=== PATIENT | female | born 1975 | race Hispanic/Latino ===

== ENCOUNTER 2018-01-12 11:28 | Emergency (ER) | payer SELFPAY ==
--- NOTE | 2018-01-12 12:21 | EDPHYS ---
Physician Documentation [facility] Name: Massiel Sharma Age: 42 yrs Sex: Female : 1975 Arrival Date: 01/12/2018 Time: 11:30 Bed 11 Private MD: None, None ED Physician Shekhar Grey HPI: 01/12 13:40 This 42 yrs old Female presents to ER via Ambulatory with complaints of Ear snw Pain. 13:40 The patient presents with hearing loss, pain. The complaints affect the left ear. snw Onset: The symptoms/episode began/occurred gradually. Associated signs and symptoms: Pertinent positives: sinus trouble. Severity of symptoms: At their worst the symptoms were moderate. The patient has not experienced similar symptoms in the past. The patient has not recently seen a physician. 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 - Social history:: Smoking status: Patient/guardian denies using tobacco. - Ebola Screening: : No symptoms or risks identified at this time. ROS: 13:33 Constitutional: Negative for fever, chills, and weight loss, Eyes: Negative for injury, snw pain, redness, and discharge, Neck: Negative for injury, pain, and swelling, Cardiovascular: Negative for chest pain, palpitations, and edema, Respiratory: Negative for shortness of breath, cough, wheezing, and pleuritic chest pain, Abdomen/GI: Negative for abdominal pain, nausea, vomiting, diarrhea, and constipation, Back: Negative for injury and pain, : Negative for injury, bleeding, discharge, and swelling, MS/Extremity: Negative for injury and deformity, Skin: Negative for injury, rash, and discoloration, Neuro: Negative for headache, weakness, numbness, tingling, and seizure. 13:33 ENT: Positive for ear pain. Exam: 13:29 Constitutional: This is a well developed, well nourished patient who is awake, alert, snw and in no acute distress. Head/Face: Normocephalic, atraumatic. Eyes: Pupils equal round and reactive to light, extra-ocular motions intact. Lids and lashes normal. Conjunctiva and sclera are non-icteric and not injected. Cornea within normal limits. Periorbital areas with no swelling, redness, or edema. Neck: Trachea midline, no thyromegaly or masses palpated, and no cervical lymphadenopathy. Supple, full range of motion without nuchal rigidity, or vertebral point tenderness. No Meningismus. Chest/axilla: Normal chest wall appearance and motion. Nontender with no deformity. No lesions are appreciated. Cardiovascular: Regular rate and rhythm with a normal S1 and S2. No gallops, murmurs, or rubs. Normal PMI, no JVD. No pulse deficits. Respiratory: Lungs have equal breath sounds bilaterally, clear to auscultation and percussion. No rales, rhonchi or wheezes noted. No increased work of breathing, no retractions or nasal flaring. Abdomen/GI: Soft, non-tender, with normal bowel sounds. No distension or tympany. No guarding or rebound. No evidence of tenderness throughout. Back: No spinal tenderness. No costovertebral tenderness. Full range of motion. Skin: Warm, dry with normal turgor. Normal color with no rashes, no lesions, and no evidence of cellulitis. MS/ Extremity: Pulses equal, no cyanosis. Neurovascular intact. Full, normal range of motion. Neuro: Awake and alert, GCS 15, oriented to person, place, time, and situation. Cranial nerves II-XII grossly intact. Motor strength 5/5 in all extremities. Sensory grossly intact. Cerebellar exam normal. Normal gait. Psych: Awake, alert, with orientation to person, place and time. Behavior, mood, and affect are within normal limits. 13:29 ENT: External ear(s): are unremarkable, Ear canal(s): cerumen impaction, that is severe, that is hard, occluding the left ear canal, TM's: not visable, because of cerumen, Examination of the other ear shows no obvious abnormality, Nose: is normal, Mouth: is normal, Voice: is normal. Vital Signs: 11:36 BP 104 / 75; Pulse 74; Resp 16 S; Temp 98.5(TE); Pulse Ox 98% on R/A; Weight 68.95 kg aa5 (R); Height 5 ft. 0 in. (152.40 cm) (R); Pain 8/10; 11:36 Body Mass Index 29.69 (68.95 kg, 152.40 cm) aa5 MDM: 11:38 Patient medically screened. snw 13:30 Data reviewed: vital signs, nurses notes. Data interpreted: Pulse oximetry: on room snw air. Counseling: I had a detailed discussion with the patient and/or guardian regarding: the historical points, exam findings, and any diagnostic results supporting the discharge/admit diagnosis, the need for outpatient follow up. Special discussion: Based on the history and exam findings, there is no indication for further emergent testing or inpatient evaluation. I discussed with the patient/guardian the need to see the ENT specialist for further evaluation of the symptoms. Administered Medications: No medications were administered Disposition: 16:46 Co-signature as Attending Physician, Shekhar Grey MD I agree with the assessment and kdr plan of care. Disposition: 01/12/18 12:20 Discharged to Home. Impression: Impacted cerumen, left ear, Otalgia, left ear. - Condition is Stable. - Discharge Instructions: Cerumen Impaction, Ear Drops, Adult, Earache. - Prescriptions for Debrox 6.5 % Otic drops - instill 10 drop by OTIC route 2 times per day; 1 Container. Zithromax 500 mg Oral Tablet - take 1 tablet by ORAL route once daily for 5 days; 5 tablet. - Work release form, Medication Reconciliation Form, Thank You Letter, Antibiotic Education, Prescription Opioid Use form. - Follow up: Private Physician; When: 2 - 3 days; Reason: Recheck today's complaints, Continuance of care, Re-evaluation by your physician. Follow up: Emergency Department; When: As needed; Reason: Worsening of condition. Signatures: Shekhar Grey MD MD [facility] Tatiana Pineda FNP-Janessa RE[employer] FACILITY ATTENDANT-Laceyw Yoana Bowers, STEPHY RN iw Thais Ledbetter RN RN aa5 Corrections: (The following items were deleted from the chart) 12:28 12:20 01/12/2018 12:20 Discharged to Home. Impression: Impacted cerumen, left ear; iw Otalgia, left ear. Condition is Stable. Forms are Medication Reconciliation Form, Thank You Letter, Antibiotic Education, Prescription Opioid Use. Follow up: Private Physician; When: 2 - 3 days; Reason: Recheck today's complaints, Continuance of care, Re-evaluation by your physician. Follow up: Emergency Department; When: As needed; Reason: Worsening of condition. snw
--- NOTE | 2018-01-12 12:21 | ER ---
Nurse's Notes [facility] Name: Massiel Sharma Age: 42 yrs Sex: Female : 1975 Arrival Date: 01/12/2018 Time: 11:30 Bed 11 Private MD: None, None Diagnosis: Impacted cerumen, left ear;Otalgia, left ear Presentation: 01/12 11:35 Presenting complaint: Patient states: left ear pain since yesterday. Transition of aa5 care: patient was not received from another setting of care. Onset of symptoms was December 2017. Risk Assessment: Do you want to hurt yourself or someone else? Patient reports no desire to harm self or others. Initial Sepsis Screen: Does the patient meet any 2 criteria? No. Patient's initial sepsis screen is negative. Does the patient have a suspected source of infection? No. Patient's initial sepsis screen is negative. Care prior to arrival: None. 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 - Social history:: Smoking status: Patient/guardian denies using tobacco. - Ebola Screening: : No symptoms or risks identified at this time. Screenin:52 Abuse screen: Denies threats or abuse. Nutritional screening: No deficits noted. aa5 Tuberculosis screening: No symptoms or risk factors identified. Fall Risk None identified. Assessment: 11:51 General: Appears comfortable, Behavior is calm, cooperative. Pain: Complains of pain in aa5 left ear. Neuro: Level of Consciousness is awake, alert, obeys commands, Oriented to person, place, time, situation. Cardiovascular: Heart tones S1 S2 present Rhythm is regular. Respiratory: Airway is patent Respiratory effort is even, unlabored, Respiratory pattern is regular, symmetrical. GI: No signs and/or symptoms were reported involving the gastrointestinal system. : No signs and/or symptoms were reported regarding the genitourinary system. EENT: Reports pain in left ear. Derm: Skin is pink, warm \T\ dry. Musculoskeletal: Range of motion: intact in all extremities. 12:26 Reassessment: Patient is alert, oriented x 3, equal unlabored respirations, skin aa5 warm/dry/pink. Vital Signs: 11:36 BP 104 / 75; Pulse 74; Resp 16 S; Temp 98.5(TE); Pulse Ox 98% on R/A; Weight 68.95 kg aa5 (R); Height 5 ft. 0 in. (152.40 cm) (R); Pain 8/10; 11:36 Body Mass Index 29.69 (68.95 kg, 152.40 cm) aa5 ED Course: 11:30 Patient arrived in ED. mr 11:31 None, None is Private Physician. mr 11:36 Triage completed. aa5 11:36 Arm band placed on. aa5 11:36 Patient has correct armband on for positive identification. aa5 11:37 Thais Ledbetter, RN is Primary Nurse. aa5 11:38 Tatiana Pineda FNP-C is PHCP. snw 11:38 Shekhar Grey MD is Attending Physician. snw 11:52 No provider procedures requiring assistance completed. aa5 12:26 Patient did not have IV access during this emergency room visit. iw Administered Medications: No medications were administered Outcome: 12:20 Discharge ordered by . snw 12:26 Discharged to home ambulatory. iw 12:26 Condition: stable 12:26 Discharge instructions given to patient, Instructed on discharge instructions, follow up and referral plans. medication usage, Demonstrated understanding of instructions, follow-up care, medications, Prescriptions given X 2. 12:28 Patient left the ED. iw Signatures: Tatiana Pineda FNP-C [employer] ENDSHAKE ADJUSTER-Laceyw Karen Dan Irene, RN RN iw Thais Ledbetter, STEPHY RN aa5
== END 2018-01-12 12:28 | disposition home or self-care (01) ==
LOC: ER 11:28
DX: H61.22 Impacted cerumen, left ear (principal); H92.02 Otalgia, left ear
CPT/HCPCS: 99282

== ENCOUNTER 2019-09-07 07:59 | Emergency (ER) | payer OTHER ==
--- OUTSIDE RECORDS SUMMARY | 2019-09-07 08:13 | XMS REPORT ---
:1975 [facility] [address] [place] [address] Care Team Providers Name Role Phone Unavailable Unavailable Unavailable Problems This patient has no known problems. Allergies, Adverse Reactions, Alerts This patient has no known allergies or adverse reactions. Medications This patient has no known medications. Results Test Description Test Time Test Comments Text Results Atomic Results Result Comments SCR MAMM BILATERAL MANISH 2019-07-24 11:41:14 - SCR MAMM BILATERAL MANISH CAD CAD DIGITAL DIGITALBILATERAL DIGITAL SCREENING MAMMOGRAM 3D/2D WITH CAD: 07/21/2019CLINICAL: Asymptomatic. Digital breast tomosynthesis was performed in addition to routine CC and MLO views. Current mammographic images were evaluated by either a [employer] M-Vu or a [employer] ImageChecker CAD (computer aided detection system). No prior exams were available for comparison. The tissue of both breasts is heterogeneously dense. This may lower the sensitivity of mammography. No suspicious mass, architectural distortion, malignant type calcification, or lymph node abnormality detected. IMPRESSION: NEGATIVEThere is no mammographic evidence of malignancy. Resume annual screening mammography in one year. Avila Sharma M.D. et/penrad:07/24/2019 11:41:14 Attending Technologist: Stefani Nicholson MM, [employer] [place] [employer] MammographyImaging Technologist: Layne Alcantara MM, [facility] [place] Mobile Mammographyletter sent: BIRADS 1-2 Normal Mammogram BI-RADS: 1 Negative
[2019-09-07] MEDS ORDERED: LIDOCAINE VISCOUS 2% SOLN 15 ML UDC ONE (08:29)
[2019-09-07] MEDS ORDERED: ONDANSETRON 4 MG/2 ML VIAL ONE (08:29)
[2019-09-07] MEDS ORDERED: MAGNE/ALUM HYDROXD 30 ML UCUP ONE (08:29)
[2019-09-07] MEDS ORDERED: ASPIRIN 81 MG CHEWABLE TABLET ONE (08:29)
[2019-09-07 08:40] LABS: Basophils % 0.8 % (0-1.3); Hematocrit 40.7 % (36.0-45.0); Lymphocytes % 27.4 % (15.3-44.8); MPV 8.8 fL (7.6-11.3); RBC Red Blood Cell Count 4.43 M/uL (3.86-4.86)
--- NOTE | 2019-09-07 08:41 | RAD REPORT ---
EXAM DESCRIPTION: RAD - Chest Single View - 09/07/2019 8:24 am CLINICAL HISTORY: CHEST PAIN COMPARISON: No comparisons TECHNIQUE: AP portable chest image was obtained 09/07/2019 8:24 am . FINDINGS: Lungs are clear. Heart and vasculature are normal. No measurable pleural effusion and no p neumothorax. No acute bony abnormality seen. No acute aortic findings suspected. IMPRESSION: No acute cardiopulmonary process.
[2019-09-07] MEDS ORDERED: MORPHINE 4 MG/ML SYR ONE (08:44)
[2019-09-07 08:54] LABS: Protime INR 1.04
[2019-09-07 09:03] LABS: ALT/SGPT 40 U/L (12-78); AST/SGOT 18 U/L (15-37); Albumin 3.4 g/dL (3.4-5.0); Alkaline Phosphatase 62 U/L (45-117); BUN Blood Urea Nitrogen 16 mg/dL (7-18); Bicarbonate 28 mmol/L (21-32); Bilirubin Direct 0.2 mg/dL (0-0.2); Bilirubin Total 0.8 mg/dL (0.2-1.0); Glucose Level 107 mg/dL (74-106); Lipase 100 U/L (73-393); Magnesium 2.3 mg/dL (1.8-2.4); NT PRO-BNP 23 pg/mL (<125); Potassium 4.1 mmol/L (3.5-5.1); Protein, Total 7.7 g/dL (6.4-8.2); Sodium Level 140 mmol/L (136-145); Troponin (Emerg Dept Use Only) < 0.02 ng/mL (0.0-0.045)
[2019-09-07] MEDS ORDERED: IBUPROFEN 400 MG TAB ONE ×2 (10:25→10:26)
[2019-09-07 10:51] LABS: Urine Blood NEGATIVE (NEG); Urine Glucose NEGATIVE (NEG); Urine Protein 1+ (NEG); Urine pH 7.5 (5.0-7.0)
--- NOTE | 2019-09-07 11:07 | RAD REPORT ---
EXAM DESCRIPTION: CT - Chest For Pe Angio - 09/07/2019 10:59 am CLINICAL HISTORY: CHEST PAIN COMPARISON: Chest Single View dated 09/07/2019 TECHNIQUE: Dynamically enhanced 3 mm thick images of the chest were obtained during administration o f approximately 150mL Isovue 370 IV contrast. Coronal and oblique MIP reconstruction images were gene rated and reviewed. Exam utilizes a protocol to evaluate the pulmonary arterial tree. All CT scans are performed using dose optimization technique as appropriate and may include automated exposure control or mA/KV adjustment according to patient size. FINDINGS: No pulmonary emboli are identified. The aorta as imaged shows no acute or suspicious finding. No pericardial thickening or effusion. No infiltrate or mass in the lung parenchyma. No pleural effusion or pleural thickening. No mediastinal or hilar suspicious masses. No chest wall masses or abnormal axillary lymphadenopathy. IMPRESSION: No pulmonary emboli identified. No other significant or suspicious findings.
--- NOTE | 2019-09-07 11:42 | ER ---
Nurse's Notes [facility] Name: Massiel Sharma Age: 44 yrs Sex: Female : 1975 Arrival Date: 09/07/2019 Time: 08:03 Bed 14 Private MD: None, None Diagnosis: Chest pain, unspecified Presentation: 09/07 08:14 Presenting complaint: Patient states: Intermittent chest pressure that became worse ss today. Transition of care: patient was not received from another setting of care. Onset of symptoms was September 05, 2018. Risk Assessment: Do you want to hurt yourself or someone else? Patient reports no desire to harm self or others. Initial Sepsis Screen: Does the patient meet any 2 criteria? No. Patient's initial sepsis screen is negative. Does the patient have a suspected source of infection? No. Patient's initial sepsis screen is negative. Care prior to arrival: None. 08:14 Method Of Arrival: Ambulatory ss 08:14 Acuity: KRISSY 3 ss Historical: - Allergies: 08:16 Ketorolac; ss 08:16 tramadol; ss - Home Meds: 08:16 Medication for HEp C [Active]; ss - PMHx: 08:16 Hepatitis; ss - PSHx: 08:16 Hernia repair; ; ss - Immunization history:: Adult Immunizations up to date. - Social history:: Smoking status: Patient denies any tobacco usage or history of. - Ebola Screening: : Patient denies exposure to infectious person Patient denies travel to an Ebola-affected area in the 21 days before illness onset. Screenin:16 Abuse screen: Denies threats or abuse. Denies injuries from another. Nutritional ss screening: No deficits noted. Tuberculosis screening: Never had TB. Fall Risk None identified. Assessment: 08:16 General: Appears in no apparent distress. comfortable, Behavior is calm, cooperative, ss Denies fever, feeling ill, fatigue, chills. Pain: Complains of pain in chest Pain does not radiate. Pain currently is 9 out of 10 on a pain scale. at worst was 9 out of 10 on a pain scale. Quality of pain is described as pressure, Pain began 2-3 days ago. Is intermittent. Neuro: Level of Consciousness is awake, alert, obeys commands, Oriented to person, place, time, situation. Cardiovascular: Pulses are palpable in right radial artery and left radial artery. Cardiovascular: Denies fatigue, lightheadedness, palpitations, shortness of breath, vomiting, Capillary refill < 3 seconds is brisk in bilateral fingers. Respiratory: Airway is patent Trachea midline Respiratory effort is even, unlabored, Respiratory pattern is regular, symmetrical. GI: Patient currently denies abdominal pain, diarrhea, nausea, vomiting. : No signs and/or symptoms were reported regarding the genitourinary system. Denies burning with urination, urinary frequency. EENT: Nares are clear Oral mucosa is moist. Throat is clear. Derm: Skin is intact, is healthy with good turgor, Skin is dry, Skin is pink, warm \T\ dry. normal. 08:19 Reassessment: XRAY at bedside. 09:05 Reassessment: Patient appears in no apparent distress at this time. Pt is resting in exam bed, awaiting disposition. Pt reports pain has minimally decreased to 8/10 after medication administration. Respirations remain even and unlabored. Call light within reach. Lights dimmed for comfort. 09:53 Reassessment: Patient appears in no apparent distress at this time. Patient and/or ss family updated on plan of care and expected duration. Pain level reassessed. pain is currently 6/10 Patient states feeling better. 10:24 Reassessment: PT reports that pain is coming back now 8/10. MARQUISE Singh notified. Ibuprofen 800 mg ordered and administered. Vital Signs: 08:13 BP 117 / 63; Pulse 76; Resp 15; Temp 97.9(O); Pulse Ox 98% on R/A; Weight 72.57 kg; Height 5 ft. 0 in. (152.40 cm); Pain 9/10; 09:21 BP 106 / 72; Pulse 64; Resp 16; Temp 97.6(O); Pulse Ox 97% on R/A; mh5 09:54 BP 105 / 70; Pulse 65; Resp 14; Pulse Ox 98% ; Pain 6/10; ss 08:13 Body Mass Index 31.25 (72.57 kg, 152.40 cm) ED Course: 08:03 Patient arrived in ED. mr 08:04 None, None is Private Physician. mr 08:05 Francisco Richardson PA is PHCP. [facility] 08:05 Javier Zheng MD is Attending Physician. jmm 08:13 Magi Myers, STEPHY is Primary Nurse. ss 08:13 Arm band placed on right wrist. ss 08:15 Triage completed. ss 08:16 Patient has correct armband on for positive identification. Bed in low position. Call ss light in reach. development administrator on. Pulse ox on. NIBP on. 08:16 Patient maintains SpO2 saturation greater than 95% on room air. ss 08:24 XRAY Chest (1 view) In Process Unspecified. EDMS 08:30 EKG done, by cartography technician. reviewed by Francisco CAMARILLO. at1 08:37 Initial lab(s) drawn, by ar, sent to lab. Inserted saline lock: 20 gauge in right mh5 antecubital area, using aseptic technique. Blood collected. 10:58 CT Chest For PE Angio In Process Unspecified. EDMS 11:41 Ruperto Matthew MD is Referral Physician. jmm 11:59 No provider procedures requiring assistance completed. IV discontinued, intact, ss bleeding controlled, No redness/swelling at site. Pressure dressing applied. Administered Medications: 08:34 Drug: Aspirin Chewable Tablet 324 mg Route: PO; ss 09:01 Follow up: Response: No adverse reaction ss 08:34 Drug: GI Cocktail without - (Maalox Suspension 30 ml, Lidocaine Liquid 2 % 15 ss ml) Route: PO; 09:02 Follow up: Response: No adverse reaction; No adverse reaction, RASS 0. pain is ss minimally decreased to 8/10 from 9/10. initial RASS 0 08:34 Drug: Zofran 4 mg Route: IVP; Site: right antecubital; ss 09:03 Follow up: Response: No adverse reaction ss 08:44 Drug: morphine 4 mg Route: IVP; Site: right antecubital; ss 09:03 Follow up: Response: No adverse reaction; No adverse reaction, pain is minimally ss decreased to 8/10 RASS 0 10:25 Drug: Ibuprofen 800 mg Route: PO; ss 12:00 Follow up: Response: No adverse reaction; Pain is decreased ss Outcome: 11:41 Discharge ordered by . jmm 11:59 Discharged to home ambulatory. ss 11:59 Condition: good 11:59 Discharge instructions given to patient, family, Instructed on discharge instructions, follow up and referral plans. medication usage, Demonstrated understanding of instructions, follow-up care, medications, Prescriptions given X 1. 12:00 Patient left the ED. ss Signatures: Dispatcher [employer] EDMS Francisco Richardson PA PA jmm Rivera, Mary mr Smirch, Shelby, STEPHY RN ss Emy Finch, guide EKG [facility]1 Karen Morton [facility]
--- NOTE | 2019-09-07 11:42 | EDPHYS ---
Physician Documentation [facility] Name: Massiel hSarma Age: 44 yrs Sex: Female : 1975 Arrival Date: 09/07/2019 Time: 08:03 Bed 14 Private MD: None, None ED Physician Javier Zheng HPI: 09/07 08:55 This 44 yrs old Female presents to ER via Ambulatory with complaints of Chest jmm Pain. 08:55 The patient or guardian reports chest pain that is located primarily in the substernal [facility] area. Onset: gradually, 2 day(s) ago. The pain does not radiate. Associated signs and symptoms: Pertinent negatives: abdominal pain, cough, lower extremity swelling, lightheadedness, nausea, shortness of breath. The chest pain is described as a pressure. Duration: The patient or guardian reports multiple episodes, that are intermittent. Modifying factors: The symptoms are alleviated by nothing. the symptoms are aggravated by nothing. This is a 44 year old female with a history of hepatitis c that presents to the ED with complaints of substernal chest pain beginning this past Wednesday which is intermittent. Denies abdominal pain, denies vomiting. Pain does not radiate to the back, arm, or jaw. . Historical: - Allergies: 08:16 Ketorolac; ss 08:16 tramadol; ss - Home Meds: 08:16 Medication for HEp C [Active]; ss - PMHx: 08:16 Hepatitis; ss - PSHx: 08:16 Hernia repair; ; ss - Immunization history:: Adult Immunizations up to date. - Social history:: Smoking status: Patient denies any tobacco usage or history of. - Ebola Screening: : Patient denies exposure to infectious person Patient denies travel to an Ebola-affected area in the 21 days before illness onset. ROS: 08:55 Constitutional: Negative for fever, chills, and weight loss. jmm 08:55 Respiratory: Negative for shortness of breath, cough, wheezing, and pleuritic chest pain, Abdomen/GI: Negative for abdominal pain, nausea, vomiting, diarrhea, and constipation. 08:55 Cardiovascular: Positive for chest pain. 08:55 All other systems are negative. Exam: 08:55 Constitutional: This is a well developed, well nourished patient who is awake, alert, jmm and in no acute distress. Head/Face: atraumatic. Eyes: EOMI, no conjunctival erythema appreciated ENT: Moist Mucus Membranes Neck: Trachea midline, Supple Chest/axilla: Normal chest wall appearance and motion. 08:55 Abdomen/GI: Non distended, soft Back: Normal ROM Skin: General appearance color normal MS/ Extremity: Moves all extremities, no obvious deformities appreciated, no edema noted to the lower extremities Neuro: Awake and alert, normal gait Psych: Behavior is normal, Mood is normal, Patient is cooperative and pleasant 08:55 Cardiovascular: Rate: normal, Rhythm: regular, Pulses: no pulse deficits are appreciated. 08:55 Respiratory: the patient does not display signs of respiratory distress, Respirations: normal, Breath sounds: are clear throughout. Vital Signs: 08:13 BP 117 / 63; Pulse 76; Resp 15; Temp 97.9(O); Pulse Ox 98% on R/A; Weight 72.57 kg; ss Height 5 ft. 0 in. (152.40 cm); Pain 9/10; 09:21 BP 106 / 72; Pulse 64; Resp 16; Temp 97.6(O); Pulse Ox 97% on R/A; mh5 09:54 BP 105 / 70; Pulse 65; Resp 14; Pulse Ox 98% ; Pain 6/10; ss 08:13 Body Mass Index 31.25 (72.57 kg, 152.40 cm) ss MDM: 08:10 Patient medically screened. [facility] 11:40 Data reviewed: vital signs, nurses notes. Counseling: I had a detailed discussion with [facility] the patient and/or guardian regarding: the historical points, exam findings, and any diagnostic results supporting the discharge/admit diagnosis, lab results, radiology results, the need for outpatient follow up, to return to the emergency department if symptoms worsen or persist or if there are any questions or concerns that arise at home. ED course: patient has a low risk for ACS. Chest pain relieved in the ED. CTA negative. Patient advised to follow up with PCP and otherwise given strict return precautions. Patient understood and agrees with the plan of care. . 09/07 08:08 Order name: Basic Metabolic Panel; Complete Time: 09:04 [facility] 09/07 08:08 Order name: CBC with Diff; Complete Time: 08:48 [facility] 09/07 08:08 Order name: LFT's; Complete Time: 09:04 [facility] 09/07 08:08 Order name: Magnesium; Complete Time: 09:04 [facility] 09/07 08:08 Order name: NT PRO-BNP; Complete Time: 09:04 [facility] 09/07 08:08 Order name: PT-INR; Complete Time: 09:04 [facility] 09/07 08:08 Order name: Troponin (emerg Dept Use Only); Complete Time: 09:04 [facility] 09/07 08:08 Order name: XRAY Chest (1 view); Complete Time: 08:48 [facility] 09/07 08:08 Order name: Lipase; Complete Time: 09:04 [facility] 09/07 09:06 Order name: Troponin (emerg Dept Use Only): 90 minutes after initial; Complete Time: [facility] 10:24 09/07 10:45 Order name: Urine Dipstick--Ancillary (enter results); Complete Time: 11:04 [facility] [place] 09/07 10:45 Order name: Urine --Ancillary (enter results); Complete Time: 11:04 [facility] [place] 09/07 10:46 Order name: CT Chest For PE Angio; Complete Time: 11:11 [facility] 09/07 08:08 Order name: EKG; Complete Time: 08:09 [facility] 09/07 08:08 Order name: Cardiac monitoring; Complete Time: 08:21 [facility] 09/07 08:08 Order name: EKG - Nurse/Tech; Complete Time: 08:21 09/07 08:08 Order name: IV Saline Lock; Complete Time: 08:35 [facility] 09/07 08:08 Order name: Labs collected and sent; Complete Time: 08:35 [facility] 09/07 08:08 Order name: O2 Per Protocol; Complete Time: 08:22 [facility] 09/07 08:08 Order name: O2 Sat Monitoring; Complete Time: 08:22 [facility] 09/07 09:48 Order name: EKG - Nurse/Tech; Complete Time: 10:05 [facility] 09/07 10:27 Order name: Urine Test (obtain specimen); Complete Time: 10:38 jm Administered Medications: 08:34 Drug: Aspirin Chewable Tablet 324 mg Route: PO; ss 09:01 Follow up: Response: No adverse reaction 08:34 Drug: GI Cocktail without - (Maalox Suspension 30 ml, Lidocaine Liquid 2 % 15 ss ml) Route: PO; 09:02 Follow up: Response: No adverse reaction; No adverse reaction, RASS 0. pain is ss minimally decreased to 8/10 from 9/10. initial RASS 0 08:34 Drug: Zofran 4 mg Route: IVP; Site: right antecubital; ss 09:03 Follow up: Response: No adverse reaction ss 08:44 Drug: morphine 4 mg Route: IVP; Site: right antecubital; ss 09:03 Follow up: Response: No adverse reaction; No adverse reaction, pain is minimally ss decreased to 8/10 RASS 0 10:25 Drug: Ibuprofen 800 mg Route: PO; ss 12:00 Follow up: Response: No adverse reaction; Pain is decreased ss Disposition: 12:08 Co-signature as Attending Physician, Javier Zheng MD. rn Disposition: 09/07/19 11:41 Discharged to Home. Impression: Chest pain, unspecified. - Condition is Stable. - Discharge Instructions: Nonspecific Chest Pain. - Prescriptions for Medrol (Scotty) 4 mg Oral Tablets, Dose Pack - take 1 tablet by ORAL route as directed - follow package instructions; 1 packet. - Medication Reconciliation Form, Thank You Letter, Antibiotic Education, Prescription Opioid Use, Work release form form. - Follow up: Ruperto Matthew MD; When: 2 - 3 days; Reason: Recheck today's complaints, Continuance of care, Re-evaluation by your physician. Signatures: Dispatcher [employer] EDFrancisco Russo PA PA [facility] Javier Zheng MD MD rn [facility] RN ss Corrections: (The following items were deleted from the chart) 12:00 11:41 09/07/2019 11:41 Discharged to Home. Impression: Chest pain, unspecified. ss Condition is Stable. Forms are Medication Reconciliation Form, Thank You Letter, Antibiotic Education, Prescription Opioid Use. Follow up: Ruperto Matthew; When: 2 - 3 days; Reason: Recheck today's complaints, Continuance of care, Re-evaluation by your physician. guy
[2019-09-07 12:11] VITALS: TEMP 97.6
[2019-09-07 12:12] VITALS: BP 105/70; O2SAT 98
--- NOTE | 2019-09-07 13:38 | EKG ---
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
--- NOTE | 2019-09-08 14:33 | EKG ---
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
== END 2019-09-07 12:00 | disposition home or self-care (01) ==
LOC: ER 07:59
DX: R07.9 Chest pain, unspecified (principal); Z88.6 Allergy status to analgesic agent; Z88.8 Allergy status to other drugs, medicaments and biological substances
CPT/HCPCS: 93005 ×2; 85025; 80048; 36415; 83735; 81025; 85610; 80076; 81003; 84484 ×2; 83690; 83880; 71275; 71045; 96375; 96374; 99285; Q9967; J2405

== ENCOUNTER 2022-01-27 19:18 | Emergency (ER) | payer OTHER, SELFPAY ==
--- OUTSIDE RECORDS SUMMARY | 2022-01-27 19:21 | XMS REPORT | Continuity of Care Document ---
:1975 Author Organization [facility] t Address [address] [place] [address] Care Team Providers Name Role Phone Pcp, Does Not Have A Primary Care Physician Doctor Unassigned, Name Attending Clinician Unavailable Darnell Lu Attending Clinician Candy GREENWOOD Attending Clinician Flaquito Em MD Attending Clinician Flaquito EM Attending Clinician Unavailable Payers Payer Name Policy Type Policy Number Effective Date Expiration Date S ource Problems Condition Condition Condition Status Onset Resolution Last Treating Co mments Source Name Details Category Date Date Treatment Clinician Date Nexplanon Nexplanon Disease Active 2014-[address] 0-30 ity of 00:00: [address] H/O tubal H/O tubal Disease Active 2014-08 Uni vers ligation ligation 0-30 ity of 00:00: [address] Well woman Well woman Disease Active 2014-08 U nivers exam with exam with 0-30 ity of routine routine 00:00: [place] [facility] 00 Me dical sharron exam sharron exam Branch BMI BMI Disease Active 2014-08 Univers 30.0-30.9, 30.0-30.9, 0-30 it y of adult adult 00:00: [address] Anxiety Anxiety Disease Active 2014-08 Univers disorder, disorder, 0-30 it[place] Medi sharron disorder disorder Branch type type Allergies, Adverse Reactions, Alerts Allergy Allergy Status Severity Reaction(s) Onset Inactive Treating Comm ents Source Name Type Date Date Clinician NO KNOWN Drug Active Univers ALLERGIE Class ity of S [facility] Social History Social Habit Start Date Stop Date Quantity Comments Source Exposure to Not sure [facility] SARS-CoV-2 (event) Medica l Branch Tobacco use and 2015-06-14 2015-06-14 Never used [facility] exposure 00:00:00 00:00:00 Medical Branch Alcohol intake 2015-06-14 2015-06-14 0 /d [facility] 00:00:00 00:00:00 [facility] Sex Ass[birth year] At [birth year] [facility] 00:00:00 00:00:00 [facility] Smoking Status Start Date Stop Date Source Never smoker [facility] Medications Ordered Filled Start Stop Current Ordering Indication Dosage Frequency Signature Comments Components Source Medication Medication Date Date Medication? Clinician (SIG) Name Name NaCl 0.9% 2020- No 1000mL at 999 Uni vers (NS) bolus 5-30 05-30 mL/hr, ity of infusion 19:30: 21:07 1,000 mL, Apolinar as 1,000 mL 00 :00 IV Medical Infusion, Branch ONCE, 1 dose, 01/12/21 at 1430, KAREN No known 2014-08 No Univers medications 0-30 ity of 11:14: [address] No known 2014-08 No Univers medications 0-30 ity of 11:14: [address] No known No Univers medications ity [facility] No known No [facility] Immunizations Ordered Filled Immunization Date Status Comments Sourc e Immunization Name Name TDAP 2012-11-03 Completed [facility] 00:00:00 [facility] TDAP 2012-11-03 Completed University 00:00:00 [facility] TDAP 2012-11-03 Completed University 00:00:00 [facility] TDAP 2012-11-03 Completed [facility] 00:00:00 [facility] TDAP 2012-11-03 Completed [facility] 00:00:00 [facility] Vital Signs Vital Name Observation Time Observation Value Comments Source Systolic blood 2021-01-12 20:30:00 111 mm[Hg] Univer sity of pressure [facility] Diastolic blood 2021-01-12 20:30:00 76 mm[Hg] Unive rsity of pressure [facility] Heart rate 2021-01-12 20:30:00 88 /min [facility] Respiratory rate 2021-01-12 20:30:00 15 /min [facility] Oxygen saturation in 2021-01-12 20:30:00 100 /min [facility] Arterial blood by [facility] Pulse oximetry Branch Body temperature 2021-01-12 20:05:57 37.44 [facility] Body height 2021-01-12 19:14:00 152.4 cm [facility] Body weight 2021-01-12 19:14:00 69.4 kg [facility] BMI 2021-01-12 19:14:00 29.88 kg/m2 [facility] Procedures Procedure Date / Time Performing Clinician Source Performed EXTERNAL PROVIDER 2021-12-04 05:01:00 Doctor Unassigned, No [facility] RECORDS Name [facility] POCT TEST 2021-01-12 19:51:00 Kali Gupta [facility] TROPONIN I 2021-01-12 19:48:00 Kali Gupta [facility] BASIC METABOLIC PANEL 2021-01-12 19:48:00 Kali Gupta [facility] (NA, K, CL, CO2, Medical Branch GLUCOSE, BUN, CREATININE, CA) URINE DRUG (IMMUNOASSAY) 2021-01-12 19:48:00 Kali Gupta [facility] COMPREHENSIVE DRUG Medical [facility] SCREEN CBC WITH DIFF 2021-01-12 19:48:00 Kali Gupta [facility] URINALYSIS 2021-01-12 19:48:00 Candy [facility] NOTICE OF PRIVACY 2021-01-12 19:07:43 Doctor Unassigned, No [facility] PRACTICES Name Medical [place] CONSENT/REFUSAL FOR 2021-01-12 19:07:05 [facility] Name [facility] US ABDOMEN COMPLETE 2020-04-23 21:01:25 Юлия Emlizbet Flaquito [facility] ty of [facility] ASSIGNMENT OF BENEFITS 2020-04-23 20:14:53 Doctor Froilan, Karen [facility] Name [facility] Encounters Start End Encounter Admission Attending Care Care Encounter Source Date/Time Date/Time Type Type Clinicians Facility Department ID 2021-06-15 Emergency [facility] [id number] Univers 22:10:58 ity of [facility] 2021-12-04 2021-12-04 Orders Doctor GARCIA [id number] Univers 00:00:00 00:00:00 Only UnassGABRIELLA ojeda [id number] ity of [place] [address]2.7[address].686 Apolinar as [phone] [facility] 009 Branch 2021-11-20 2021-11-20 RADHA Loera [id number] Univers 00:00:00 00:00:00 (Out) Lydia QUIROZ [id number] i ty of [place] [id number] Apolinar as [id number] [facility] 043 Branch 2021-01-12 2021-01-[address] [facility] [id number] Univers 14:17:00 16:10:00 Gonzálezafshin [place] [id number] i ty [place] [id number] [facility] 084 Branch 2020-04-23 2020-04-23 [facility] [id number] Univers 15:00:00 23:59:00 Encounter Flaquito HernandezTabor [id number] ity [place] [id number] [facility] 806 Branch 2020-04-23 2020-04-23 Outpatient [facility] [id number] Univers 00:00:00 00:00:00 ity of [facility] 2020-04-23 2020-04-23 Orders Doctor GARCIA [id number] Univers 00:00:00 00:00:00 Only UnassGABRIELLA ojeda [id number] ity of [place] [facility] 4.2.7.2.686 Apolinar as [phone] [place] [address] Branch Results Test Description Test Time Test Comments Results Result Comments Source CT/NG, NAAT, URINE 2021-10-03 21:31:48 Test Item Value Reference Range Interpretation Comme nts GONORRHEA, NAAT NEGATIVE NEGATIVE IMPORTANT NOTICE: SEE ANNOUNCEMENT (test code = [place] [address]) [email or web address] Note: Assay methodolo gy is nucleic acid amplification by transcriptio n mediated amplification (TMA) utilizing the Aptima Combo 2 Assay. CHLAMYDIA, NAAT NEGATIVE NEGATIVE IMPORTANT NOTICE: SEE ANNOUNCEMENT (test code = [place] [address]) [email or web address] Note: Assay methodolo gy is nucleic acid amplification by transcriptio n mediated amplification (TMA) utilizing the Aptima Combo 2 Assay. PAP TEST, THINPREP, [id number] 16:53:35 Test Item Value Reference Range Interpretation Comments SOURCE: (test Cervical/Endo code = 8001) cervical SLIDES: (test 1 code = 8011) LMP: (test code = 09/23/2021 8021) SPECIMEN (NOTE) Satisfacto ry for ADEQUACY: (test evaluation. code = 93737) Endocervical cells/transform ation zone component not identified. INTERPRETATION: NILM/NO (test code = EPITH. --------- 10793) ABNORMALITY;S -------- EE BELOW NEGATIVE FO R INTRAEPITHELIAL LESION OR MALIGNANCY ( NILM) --------- --------- --------- - OTHER COMMENTS: (NOTE) Shift in radha ra (test code = suggestive of b acterial 8081) vaginosis. WOOD TYPE FINISHER: Toby (test code = POLO Atwood( 8101) CP) IAC LOCATION: (test (NOTE) Specimens pr ocessed and code = 93478) interpreted at [facility], [address] [place] [address], , CLIA: [id number] CPT: (test code = (NOTE) 06000 U NLESS 8140) OTHERWISE INDIC ATED, COMPUTER AIDED AND CYTOTECHNOLOGIS T SCREENING PERFO RMED. The Pap test i s a screening test with an inherent, but l ow probability of error. Your patient sh ould be reminded to consult you immediately if she experiences any suspicious signs or symptoms, regar dless of her Pap test re sult. An alternate re port format containi ng images or consolidated prior Pap histo ry is available as ap plicable. HPV HIGH RISK WITH GENOTYPE, [id number] 16:49:43 Test Item Value Reference Range Interpretation Comments HPV HIGH RISK INTERP NEGATIVE NEGATIVE (test code = 76669) HPV 16 (test code = NEGATIVE 28065) HPV 18 (test code = NEGATIVE 36850) HPV, HR, OTHER NEGATIVE Testing GENOTYPES (test code methodo logy is real-time = 86827) PCR utilizing h ydrolysis probes with the Bea Wendy 480 0 system. The test indiv idually detects genot ypes 16 and 18, as well as the other 12 high r isk types (31,33,35,39,45 ,51,52,56 ,58,59,66,68). The expected re sult is negative. A negative result does not rule out the presence of HPV not included in the genotype set, a low level of infect ion or specimen santana pling error. U NLESS OTHERWISE INDIC ATED, ALL TESTING PERFORM ED [facility], [place]. [address] [place] [address] LABORATORY DIRE CTOR: TITO PETE M.D. CLIA NUMBER [id number] CAP ACCREDITATION N O. [id number] VAGINAL PATHOGENS DNA [id number] 13:52:37 Test Item Value Reference Range Interpretation Comments KATHY SPECIES (test code = 39390) NEGATIVE NEGATIVE G. VAGINALIS (test code = 73983) POSITIVE NEGATIVE A T. VAGINALIS (test code = 43550) NEGATIVE NEGATIVE [id number] 03:52:07 Test Item Value Reference Range Interpretation Comments RPR RESULT (test NON-REACTIVE NON-REACTIVE code = 3501) RPR TITER (test NOT INDIC. NOT INDIC. UNLES S OTHERWISE code = 3500) TITER INDICATED, ALL TESTING PERFORMED [facility], [facility]. [address] [place] [address] 4 LABORATORY DI SAMUEL: TITO PETE M.D. CLIA NUMBE R [id number] CAP ACCREDITATION N O. [id number] HIV 1/2 4TH GEN, RFLX [id number] 03:45:56 Test Item Value Reference Range Interpretation Comments HIV 1/2 4TH GEN, RFLX CONF (test NON-REACTIVE NON-REACTIVE code = 3514) HEPATITIS PANEL, [id number] 03:45:56 Test Item Value Reference Range Interpretation Comments HEPATITIS A IgM (test NON-REACTIVE NON-REACTIVE code = 89260) HEPATITIS B CORE IgM NON-REACTIVE NON-REACTIVE (test code = 4644) HEPATITIS B SURF AG NON-REACTIVE NON-REACTIVE (test code = 2739) HEPATITIS C ANTIBODY REACTIVE NON-REACTIVE A (test code = 4675) INTERPRETATION (NOTE) Hepatiti s A HEPATITIS A: (test serology shows no code = 2552) evidence of acu te hepatitis A. INTERPRETATION (NOTE) Hepatiti s B HEPATITIS B: (test serology shows no code = 61568) evidence of ac monie hepatitis B and no indication of exposure to hepatitis B vir us in the previous arsenio eight mon ths. INTERPRETATION (NOTE) Hepatiti s C HEPATITIS C: (test serology is code = 14396) consistent wit h exposure to hepatitis Cviru s. The CDC recomme nds performing a supplemental confirmatory te ston initial positiv e hepatitis C antibody tests. HCV PCR quantitativecan be used to confirm these results o n a new sample (See MMWR, 2003;52 RR-3). Troponin [id number] 20:29:39 Test Item Value Reference Range Interpretation Comments TROPONIN I (test 0.000 ng/mL See_Comment [Automated code = 1270142902) message] The system which generated this result transmitted reference range : <=0.034. The reference range was not used to interpret this result as normal/abnormal . ADRIANA (test code = Equal or Less than ADRIANA) 0.034 ng/ml---Normal ?Note: Cardiac troponin begins to rise 3-4 hours after the onset of ischemia. Repeat in 4-6 hours if the sample was drawn within 3-4 hours of the onset of the symptom and found normal. Between 0.035 and 0.120 ng/mL--- Borderline. Questionable myocardial injury or necrosis ? ?Note: Serial measurement may be necessary to confirm or exclude the diagnosis of myocardial injury or necrosis; Clinical correlation (symptoms, EKGs, imaging studies, and others) required; Repeat in 4-6 hours if clinically indicated. ? Equal or Higher than 0.121 ng/mL---Abnormal. Myocardial Injury or Necrosis Likely ? Biotin has been reported to cause a negative bias, interpret results relative to patient's use of biotin. ? Lab Interpretation Normal (test code = 80555-3) [facility] [id number] 20:29:14 Test Item Value Reference Range Interpretation Comments AMPHET (test code = Negative Negative 7898856753) MILAGROS U (test code = Negative Negative 2939777145) BENZO U (test code = Presumptive Positive Negative A 7639908364) Cocaine Metabolite (test Negative Negative code = 2223715359) METHADONE (test code = Negative Negative 4339859716) OPIATES (test code = Negative Negative 4120401293) PCP (test code = Negative Negative 3601171691) THC (test code = Presumptive Positive Negative A 8840943363) ADRIANA (test code = ADRIANA) Urine Drug Cutoff Ranges Cocaine: ? 150 ng/mLBenzodiazepines: ? ? 200 ng/mLMethadone: ? 300 ng/mLAmphetamine: ? 1,000 ng/mLOpiates: ? 300 ng/mLCannabinoids: ?50 ng/mLPhencyclidine: ? ? ? 25 ng/mLBarbiturates: ?200 ng/mL The results are to be used only for medical (i.e., treatment) purposes. Unconfirmed screening results must not be used for non-medical purposes (e.g., employment testing, legal testing). Lab Interpretation (test Abnormal code = 32129-5) [facility] Metabolic Panel (NA, K, CL, CO2, GLUCOSE, BUN, CREATININE, CA)2021-01-12 20:18:17 Test Item Value Reference Range Interpretation Comments NA (test code = 138 mmol/L 135-145 2206043423) K (test code = 3.8 mmol/L 3.5-5.0 7152642084) CL (test code = 103 mmol/L 98-108 5777008873) CO2 TOTAL (test code = 27 mmol/L 23-31 0799242220) AGAP (test code = 2-16 0507736738) BUN (test code = 9 mg/dL 7-23 5207960572) GLUCOSE (test code = 100 mg/dL 70-110 1690420872) CREATININE (test code = 0.48 mg/dL 0.50-1.04 L 9922962423) CALCIUM (test code = 9.1 mg/dL 8.6-10.6 9491987437) eGFR (test code = mL/min/1.73m2 0944744602) ADRIANA (test code = ADRIANA) Association of Glomerular Filtration Rate (GFR) and Staging of Kidney Disease* + --+ --+ ------+| GFR (mL/min/1.73 m2) ?| With Kidney Damage ?| ?Without Kidney Damage+ --------+ --------+ +| ?>90 ?| ?Stage one ?| ? Normal ?+ ---+ ---+ -------+| ?60-89 ?| ?Stage two ?| ? Decreased GFR ? + --+ --+ ------+| ?30-59 ?| ?Stage three ?| ? Stage three ? + --+ --+ ------+| ?15-29 ?| ?Stage four ? | ? Stage four ?+ ---+ ---+ -------+| ?<15 (or dialysis) ? ?| ?Stage five ? | ? Stage five ?+ ---+ ---+ -------+ *Each stage assumes the associated GFR level has been in effect for at least three months. ?Stages 1 to 5, with or without kidney disease, indicate chronic kidney disease. Notes: Determination of stages one and two (with eGFR >59mL/min/1.73 m2) requires estimation of kidney damage for at least three months as defined by structural or functional abnormalities of the kidney, manifested by either:Pathological abnormalities or Markers of kidney damage (including abnormalities in the composition of the blood or urine or abnormalities in imaging tests). Lab Interpretation Abnormal (test code = 55773-3) [facility] SpringsUrinalysis2021-05-30 20:05:48 Test Item Value Reference Range Interpretation Comments APPEARANCE (test code = Clear Clear 6920483706) COLOR (test code = Yellow Yellow 0446988316) PH (test code = 4.8-8.0 6113213847) SP GRAVITY (test code = 1.003-1.030 3195114500) GLU U QUAL (test code = Normal Normal 3778857427) BLOOD (test code = Negative Negative 7729324901) KETONES (test code = Negative Negative 8562978877) PROTEIN (test code = Negative Negative 2887-8) UROBILIN (test code = Normal Normal 7083857400) BILIRUBIN (test code = Negative Negative 6983272357) NITRITE (test code = Negative Negative 2147367445) LEUK SUSAN (test code = Negative Negative 5519209418) RBC/HPF (test code = See_Comment [Autom ated message] 1191714471) The system [employer] generated this result transmitted ref erence range: 0 - 3 HP F. The reference range was not used to int erpret this result as normal/abnormal . WBC/HPF (test code = See_Comment [Autom ated message] 2835694515) The system [employer] generated this result transmitted ref erence range: 0 - 5 HP F. The reference range was not used to int erpret this result as normal/abnormal . BACTERIA (test code = Negative Negative 7949588833) Lab Interpretation (test Normal code = 23326-2) [facility] SpringsCB with [id number] 19:58:59 Test Item Value Reference Range Interpretation Comments WBC (test code = See_Comment [Automated 6690-2) message] The sy stem which generated this result transmitted reference range : 4.30 - 11.10 10*3/?L. The reference range was not used to interpret this result as normal/abnormal . RBC (test code = See_Comment [Automated 789-8) message] The sy stem which generated this result transmitted reference range : 3.93 - 5.25 10*6/?L. The reference range was not used to interpret this result as normal/abnormal . HGB (test code = 13.4 g/dL 11.6-15.0 718-7) HCT (test code = 39.5 % 35.7-45.2 4544-3) MCV (test code = 91.4 fL 80.6-95.5 787-2) MCH (test code = 31.0 pg 25.9-32.8 785-6) MCHC (test code = 33.9 g/dL 31.6-35.1 786-4) RDW-SD (test code = 40.3 fL 39.0-49.9 09314-2) RDW-CV (test code = 12.0 % 12.0-15.5 788-0) PLT (test code = See_Comment [Automated 777-3) message] The sy stem which generated this result transmitted reference range : 166 - 358 10*3/ ?L. The reference r [place] was not used to interpret this result as normal/abnormal . MPV (test code = 10.3 fL 9.5-12.9 92880-7) NRBC/100 WBC (test See_Comment [Automat ed code = 2440695987) message] The system which generated this result transmitted reference range : 0.0 - 10.0 /100 WBCs. The refer ence range was not u sed to interpret th is result as normal/abnormal . NRBC x10^3 (test code <0.01 See_Comment [Auto mated = 1250319697) message] The s ystem which generated this result transmitted reference range : 10*3/?L. The reference range was not used to interpret this result as normal/abnormal . GRAN MAT (NEUT) % 65.8 % (test code = 770-8) IMM GRAN % (test code 0.30 % = 5802459245) LYMPH % (test code = 22.3 % 736-9) MONO % (test code = 10.2 % 5905-5) EOS % (test code = 0.9 % 713-8) BASO % (test code = 0.5 % 706-2) GRAN MAT x10^3(ANC) 6.11 10*3/uL 1.88-7.09 (test code = 7556748615) IMM GRAN x10^3 (test 0.03 10*3/uL 0.00-0.06 code = 0988864620) LYMPH x10^3 (test code 2.07 10*3/uL 1.32-3.29 = 731-0) MONO x10^3 (test code 0.95 10*3/uL 0.33-0.92 H = 742-7) EOS x10^3 (test code = 0.08 10*3/uL 0.03-0.39 711-2) BASO x10^3 (test code 0.05 10*3/uL 0.01-0.07 = 704-7) Lab Interpretation Abnormal (test code = 74916-0) [facility]PO[facility] [id number] 19:51:00 Test Item Value Reference Range Interpretation Comments POCT PREG (test code = 1605) negative On board controls acceptable with present C Line (test code = 3574) POCT PREG LOT # (test code = [id number]) POCT PREG TEST DATE (test 07/15/2022 code = 3576) Lab Interpretation (test code = Normal 06115-2) [facility] SpringsUS ABDOMEN [id number] 22:27:45 1. ?Normal size liver with normal echotexture.. No focal lesion is seen.2. ?Rest of the study is also unremarkable. Preliminary Report Dictated by Resident: Adrián Guzman MD., have reviewed this study and agree with theabove report.EXAM: US ABDOMEN COMPLETE HISTORY: 45 years-old Female with Abnormal results of liver functionstudies Chronic hepatitis C without hepatic comaReceived faxed orders forabd complete ultrasound. TECHNIQUE: Complete abdominal ultrasound was performed. Main portal veinwas evaluated with color Doppler imaging. Shipping Packer images wereobtained for the record. COMPARISON: None FINDINGS: LIVER: Length: 15.3 cm.Parenchyma: Liver is normal in size and shows normal echotexture.. No focallesion is detected.Portal vein: Hepatopetal flow present in the main portal vein. The mainportal vein measures 0.78 cm in diameter. GALLBLADDER:No cholelithiasis.Normal gallbladder wall thickness, 2 mm.Negative Mejia's sign. BILE DUCTS:No intra- or extrahepatic biliary dilatation..Common Duct diameter: 2 mm. PANCREAS: The visualized portions of the pancreas are unremarkable. SPLEEN: The spleen is normal in size. The spleen measures 9.5 cm. No focal lesionsin the spleen. KIDNEYS:RIGHT:Size 10.9 x 4.1 x 4.1 cm.Parenchyma: Normal renal cortical echogenicity and thickness. No focalsolid or cystic renal lesions are detected.Collecting System: No hydronephrosis.Other: None. LEFT:Size: 10.7 x 5.2 x 4.6 cm.Parenchyma:Normal renal cortical echogenicity and thickness.No focal solidor cystic renal lesions are detected.Collecting System: No hydronephrosis.Other: None.AORTA:Abdominal aorta is normal in caliber where visualized. IVC:IVC is normal in appearance where visualized. [facility], Radiant Results Inft User - 04/23/2020 5:28 PM CDTEXAM: US ABDOMEN COMPLETEHISTORY: 45 years-old Female with Abnormal results of liver functionstudies Chronic hepatitis C without hepatic coma Received faxed orders forabd complete ultrasound.TECHNIQUE: Complete abdominal ultrasound was performed. Main portal veinwas evaluated with color Doppler imaging. Shipping Packer images wereobtained for the record.COMPARISON: NoneFINDINGS: LIVER: Length: 15.3 cm.Parenchyma: Liver is normal in size and shows normal echotexture.. No focallesion is detected.Portal vein: Hepatopetal flow present in the main portal vein. The mainportal vein measures 0.78 cm in diameter.GALLBLADDER:No cholelithiasis.Normal gallbladder wall thickness, 2 mm.Negative Mejia's sign.BILE DUCTS:No intra- or extrahepaticbiliary dilatation..Common Duct diameter: 2 mm.PANCREAS: The visualized portions of the pancreas areunremarkable.SPLEEN: The spleen is normal in size. The spleen measures 9.5 cm. No focal lesionsin the spleen.KIDNEYS:RIGHT:Size 10.9 x 4.1 x 4.1 cm.Parenchyma: Normal renal cortical echogenicity and thickness. No focalsolid or cystic renal lesions are detected.Collecting System: No hydronephrosis.Other: None.LEFT:Size: 10.7 x 5.2 x 4.6 cm.Parenchyma:Normal renal cortical echogenicity and thickness. No focal solidor cystic renal lesions are detected.Collecting System: No hydronephrosis.Other: None.AORTA:Abdominal aorta is normal in caliber where visualized.IVC:IVC is normal in appearance where visualized. IMPRESSION1. Normal size liver with normal echotexture.. No focal lesion is seen.2. Rest of the study is also unremarkable.Preliminary Report Dictated by Resident: Adrián Sarkar MD., have reviewed this study and agree with theabove report.[facility] SpringsSCR MAMM BILATERAL MANISH CAD [id number] 11:41:14 - SCR MAMM BILATERAL MANISH CAD DIGITALBILATERAL DIGITAL SCREENING MAMMOGRAM 3D/2D WITH CAD: 07/21/2019CLINICAL: Asymptomatic. Digital breast tomosynthesis was performed in addition to routine CC and MLO views. Current mammographic images were evaluated by either a [employer] M-Vu or a [employer] ImageChecker CAD (computer aided detection system). No prior exams were available for comparison. The tissue of both breasts is heterogeneously dense. This may lower the sensitivity of mammography. No suspicious mass, architectural distortion, malignant type calcification, or lymph node abnormality detected. IMPRESSION: NEGATIVEThere is no mammographic evidence of malignancy. Resume annual screening mammography in one year. Avila Falcon/penrad:07/24/2019 11:41:14 Attending Technologist: Stefani Nicholson MM, [facility] [place] [employer] MammographyImaging Technologist: Layne Alcantara MM, [facility] [place] [facility] Mammographyletter sent: BIRADS 1-2 Normal Mammogram BI-RADS: 1 Negative"
[2022-01-27 20:48] LABS: Absolute Lymphocytes (CBC) 2.9 K/uL (0.7-4.9); Hematocrit 38.8 % (36.0-45.0); Lymphocytes % 29.4 % (15.3-44.8); MPV 8.3 fL (7.6-11.3); RBC Red Blood Cell Count 4.36 M/uL (3.86-4.86)
[2022-01-27 21:02] LABS: Urine Blood Negative (Negative); Urine Glucose Negative (Negative); Urine Protein Negative (Negative); Urine Specific Gravity >=1.030 (1.005-1.030); Urine pH 6.5 (5.0-7.0)
[2022-01-27 21:02] LABS: Potassium 4.1 mmol/L (3.5-5.1); Troponin High Sensitivity 3.3 pg/mL (<58.9)
--- NOTE | 2022-01-27 21:02 | RAD REPORT ---
EXAM DESCRIPTION: Agustin Single View01/27/2022 8:55 pm CLINICAL HISTORY: Chest pain COMPARISON: 2019 FINDINGS: The lungs appear clear of acute infiltrate. The heart is normal size IMPRESSION: No acute abnormalities displayed
[2022-01-27 21:15] LABS: Barbiturates NEGATIVE (NEGATIVE); Benzodiazepines NEGATIVE (NEGATIVE); Cocaine POSITIVE (NEGATIVE); METHAMPHETAM POSITIVE (NEGATIVE); Methadone NEGATIVE (NEGATIVE); Opiates NEGATIVE (NEGATIVE); Phencyclidine NEGATIVE (NEGATIVE); THC Cannibis NEGATIVE (NEGATIVE)
[2022-01-27] MEDS ORDERED: MORPHINE 2 MG/ML SYR ONE ×2 (21:27→23:44)
[2022-01-27 21:35] LABS: Urine Bacteria NONE SEEN /HPF (<20); Urine RBC <5 /HPF (NONE SEEN)
--- NOTE | 2022-01-28 00:45 | ER ---
Nurse's Notes [facility] Name: Massiel Sharma Age: 46 yrs Sex: Female : 1975 Arrival Date: 01/27/2022 Time: 19:24 Bed 14 Private MD: Diagnosis: Chest pain, unspecified Presentation: 01/27 19:41 Chief complaint: Patient states: Chest pain on and off for 2 days. Coronavirus screen: ld1 At this time, the client does not indicate any symptoms associated with coronavirus-19. Ebola Screen: No symptoms or risks identified at this time. Initial Sepsis Screen: Does the patient meet any 2 criteria? No. Patient's initial sepsis screen is negative. Does the patient have a suspected source of infection? No. Patient's initial sepsis screen is negative. Risk Assessment: Do you want to hurt yourself or someone else? Patient reports no desire to harm self or others. Onset of symptoms was January 27, 2022. 19:41 Method Of Arrival: Ambulatory ld1 19:41 Acuity: KRISSY 3 ld1 Triage Assessment: 19:42 General: Appears in no apparent distress. comfortable, Behavior is calm, cooperative, ld1 appropriate for age. Pain: Complains of pain in chest Pain does not radiate. Pain currently is 10 out of 10 on a pain scale. Quality of pain is described as sharp. EENT: No signs and/or symptoms were reported regarding the EENT system. Neuro: Level of Consciousness is awake, alert, obeys commands, Oriented to person, place, time, situation. Cardiovascular: Capillary refill < 3 seconds Patient's skin is warm and dry. Respiratory: Airway is patent Respiratory effort is even, unlabored. GI: Abdomen is flat, non-distended. : No signs and/or symptoms were reported regarding the genitourinary system. Derm: No signs and/or symptoms reported regarding the dermatologic system. Musculoskeletal: No signs and/or symptoms reported regarding the musculoskeletal system. 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 - Social history:: Smoking status: Patient denies any tobacco usage or history of. Patient uses alcohol. Screenin:46 Abuse screen: Denies threats or abuse. Denies injuries from another. Nutritional lg3 screening: No deficits noted. Tuberculosis screening: No symptoms or risk factors identified. Fall Risk None identified. Assessment: 20:46 General: Appears in no apparent distress. comfortable, Behavior is calm, cooperative. lg3 Pain: Complains of pain in chest Pain radiates to right arm Quality of pain is described as crampy, pressure, radiating, Pain began 2-3 days ago. Neuro: No deficits noted. Todd Agitation-Sedation Scale (RASS): 0 - Alert and Calm Level of Consciousness is awake, alert, obeys commands, Oriented to person, place, time, situation. Cardiovascular: No deficits noted. Denies nausea, shortness of breath, Capillary refill < 3 seconds Clubbing of nail beds is absent JVD is absent Patient's skin is warm and dry. Respiratory: No deficits noted. Airway is patent Trachea midline Respiratory effort is even, unlabored, Respiratory pattern is regular, symmetrical. GI: No deficits noted. No signs and/or symptoms were reported involving the gastrointestinal system. Abdomen is round non-distended. : No deficits noted. No signs and/or symptoms were reported regarding the genitourinary system. EENT: No deficits noted. No signs and/or symptoms were reported regarding the EENT system. Derm: No deficits noted. No signs and/or symptoms reported regarding the dermatologic system. Skin is intact, is healthy with good turgor, Skin is dry, Skin temperature is warm. Musculoskeletal: No deficits noted. No signs and/or symptoms reported regarding the musculoskeletal system. Circulation, motion, and sensation intact. Range of motion: intact in all extremities. 23:38 Reassessment: Patient appears in no apparent distress at this time. No changes from lg3 previously documented assessment. Patient and/or family updated on plan of care and expected duration. Pain level reassessed. Patient is alert, oriented x 3, equal unlabored respirations, skin warm/dry/pink. 01/28 01:06 Reassessment: Patient appears in no apparent distress at this time. No changes from lg3 previously documented assessment. Patient and/or family updated on plan of care and expected duration. Pain level reassessed. Patient is alert, oriented x 3, equal unlabored respirations, skin warm/dry/pink. Patient states symptoms have improved. Vital Signs: 01/27 19:41 BP 131 / 87; Pulse 86; Resp 18; Temp 98.7(TE); Pulse Ox 99% on R/A; Weight 68.04 kg; ld1 Height 5 ft. 0 in. (152.40 cm); Pain 10/10; 22:02 BP 118 / 75; Pulse 82; Resp 16 S; Pulse Ox 100% on R/A; lg3 01/28 01:06 BP 122 / 75; Pulse 79; Resp 17; Pulse Ox 99% on R/A; lg3 01/27 19:41 Body Mass Index 29.29 (68.04 kg, 152.40 cm) ld1 ED Course: 01/27 19:24 Patient arrived in ED. ja2 19:42 Triage completed. ld1 19:42 Arm band placed on right wrist. ld1 20:08 Garrison Isaacs PA is PHCP. cp 20:08 Garrison Segovia MD is Attending Physician. cp 20:20 Heydi Olmos, STEPHY is Primary Nurse. lg3 20:46 Patient has correct armband on for positive identification. Bed in low position. Call lg3 light in reach. Side rails up X 1. Client placed on continuous cardiac and pulse oximetry monitoring. NIBP monitoring applied. patient monitor on. Door closed. Noise minimized. Warm blanket given. Family accompanied patient. 20:46 Inserted saline lock: 20 gauge in left antecubital area, using aseptic technique. Blood lg3 collected. 20:46 Patient maintains SpO2 saturation greater than 95% on room air. lg3 20:47 Basic Metabolic Panel Sent. lg3 20:47 CBC with Diff Sent. lg3 20:47 Troponin HS Sent. lg3 20:57 XRAY Chest (1 view) In Process Unspecified. EDMS 21:02 Urine Microscopic Only Sent. lg3 21:02 UDS Sent. lg3 21:19 Urine Microscopic Only Sent. lg3 21:27 LAB Add On Sent. lg3 21:27 D-Dimer Sent. lg3 23:37 CT Chest For PE Angio In Process Unspecified. EDMS 01/28 01:18 No provider procedures requiring assistance completed. IV discontinued, intact, lg3 bleeding controlled, No redness/swelling at site. Pressure dressing applied. Administered Medications: 01/27 21:27 Drug: morphine 2 mg Route: IV; Rate: calculated rate; Site: left antecubital; lg3 23:41 Drug: morphine 2 mg Route: IV; Rate: calculated rate; Site: left antecubital; kd3 01/28 01:07 Follow up: Response: No adverse reaction; IV Status: Completed infusion; IV Intake: 2ml lg3 Medication: 01/27 20:46 VIS not applicable for this client. lg3 Intake: 01/28 01:07 IV: 2ml; Total: 2ml. lg3 Outcome: 00:45 Discharge ordered by MD. cp 01:18 Discharged to home ambulatory, with family. lg3 01:18 Condition: stable 01:18 Discharge instructions given to patient, Instructed on discharge instructions, medication usage, Demonstrated understanding of instructions, medications, Prescriptions given X 1. 01:20 Patient left the ED. lg3 Signatures: Dispatcher [employer] EDMS Garrison Isaacs PA PA cp Gibson, Lacie RN RN lg3 Analisa Bose RN RN ld1 Mounika Stein Kyli RN RN kd3
--- NOTE | 2022-01-28 00:45 | EDPHYS ---
Physician Documentation [facility] Name: Massiel Sharma Age: 46 yrs Sex: Female : 1975 Arrival Date: 01/27/2022 Time: 19:24 Bed 14 Private MD: ADALGISA Physician Garrison Segovia HPI: 01/27 20:15 This 46 yrs old Female presents to ER via Ambulatory with complaints of Chest cp Pain, Numbness Of Arm. 20:15 The patient or guardian reports chest pain that is located primarily in the mid chest. cp 20:15 Onset: yesterday. The pain radiates to the right arm, right back. Associated signs and cp symptoms: Pertinent positives: tingling of right arm, Pertinent negatives: abdominal pain, cough, diaphoresis, lower extremity pain, lower extremity swelling, palpitations, shortness of breath, syncope, vomiting. The chest pain is described as sharp. 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 - Social history:: Smoking status: Patient denies any tobacco usage or history of. Patient uses alcohol. ROS: 20:20 Constitutional: Negative for body aches, chills, fever, poor PO intake. cp 20:20 Eyes: Negative for injury, pain, redness, and discharge. cp 20:20 ENT: Negative for drainage from ear(s), ear pain, sore throat, difficulty swallowing, difficulty handling secretions. 20:20 Cardiovascular: Positive for chest pain, Negative for edema, palpitations. 20:20 Respiratory: Negative for cough, shortness of breath, wheezing. 20:20 Abdomen/GI: Negative for abdominal pain, nausea, vomiting, and diarrhea. 20:20 MS/extremity: Positive for paresthesias, of the right arm, radiating pain, Negative for injury or acute deformity, decreased range of motion. 20:20 Neuro: Negative for altered mental status, dizziness, headache, loss of consciousness, syncope, weakness. 20:20 All other systems are negative. Exam: 20:25 Constitutional: The patient appears in no acute distress, alert, awake, cp non-diaphoretic, non-toxic, well developed, well nourished, uncomfortable. 20:25 Head/Face: Normocephalic, atraumatic. cp 20:25 Eyes: Periorbital structures: appear normal, Conjunctiva: normal, no exudate, no injection, Sclera: no appreciated abnormality, Lids and lashes: appear normal, bilaterally. 20:25 ENT: External ear(s): are unremarkable, Nose: is normal, Mouth: Lips: moist, Oral mucosa: moist, Posterior pharynx: Airway: no evidence of obstruction, patent. 20:25 Neck: ROM/movement: is normal, is supple, without pain, no range of motions limitations, no nuchal rigidity. 20:25 Chest/axilla: Inspection: normal. 20:25 Cardiovascular: Rate: normal, Rhythm: regular, Pulses: Pulses are 2+ in right radial artery and left radial artery. Heart sounds: murmur, not appreciated, Edema: is not appreciated. 20:25 Respiratory: the patient does not display signs of respiratory distress, Respirations: normal, no use of accessory muscles, no retractions, labored breathing, is not present, Breath sounds: are clear throughout, no decreased breath sounds, no stridor, no wheezing. 20:25 Abdomen/GI: Inspection: abdomen appears normal, Palpation: abdomen is soft and non-tender, in all quadrants. 20:25 Back: pain, that is mild, of the right scapular area, ROM is normal. 20:25 Neuro: Orientation: to person, place \T\ time. Mentation: is normal, Motor: moves all fours, strength is normal, Sensation: no obvious gross deficits. 23:52 ECG was reviewed by the Attending Physician. cp Vital Signs: 19:41 BP 131 / 87; Pulse 86; Resp 18; Temp 98.7(TE); Pulse Ox 99% on R/A; Weight 68.04 kg; ld1 Height 5 ft. 0 in. (152.40 cm); Pain 10/10; 22:02 BP 118 / 75; Pulse 82; Resp 16 S; Pulse Ox 100% on R/A; lg3 /15 01:06 BP 122 / 75; Pulse 79; Resp 17; Pulse Ox 99% on R/A; lg3 01/27 19:41 Body Mass Index 29.29 (68.04 kg, 152.40 cm) ld1 MDM: 01/27 20:16 Patient medically screened. james 21:00 Differential diagnosis: acute myocardial infarction, acute pericarditis, anxiety, chest cp wall pain, cholecystitis, Cholelithiasis costochondritis, pleurisy, pneumonia, pneumothorax, pulmonary embolus, stable angina, thoracic aortic disection, unstable angina. 23:30 Data reviewed: vital signs, nurses notes, lab test result(s), EKG, radiologic studies, cp plain films. 23:30 Test interpretation: by ED physician or midlevel provider: ECG. ED course: Discussed cp results of labs, EKG and urine positive for cocaine and methamphetamine. Patient denies use of cocaine and methamphetamine. 01/28 00:44 Response to treatment: the patient's symptoms have markedly improved after treatment. 00:44 Special discussion: Based on the patient's history, exam, and Dx evaluation, there is cp no indication for emergent intervention or inpatient Tx. It is understood by the patient/guardian that if the Sx's persist or worsen they need to return immediately for re-evaluation. 01/27 20:12 Order name: Basic Metabolic Panel; Complete Time: 21:04 ld1 01/27 22:52 Interpretation: Normal except: CL 108; BUN 24. 01/27 20:12 Order name: CBC with Diff; Complete Time: 21:04 ld1 01/27 23:42 Interpretation: Reviewed. 01/27 20:12 Order name: Troponin HS; Complete Time: 21:04 ld1 01/27 20:24 Order name: UDS; Complete Time: 22:14 01/27 22:15 Interpretation: Normal except: ARTURO POSITIVE; METHAMPHETAMINE POSITIVE. 01/27 20:24 Order name: Urine Microscopic Only; Complete Time: 22:14 cp 01/27 21:03 Order name: Urine Dipstick-Ancillary; Complete Time: 21:04 EDMS 01/27 20:12 Order name: XRAY Chest (1 view); Complete Time: 21:04 ld1 01/27 21:05 Order name: D-Dimer; Complete Time: 23:42 01/27 23:42 Interpretation: Abnormal: D-DIMER 596. 01/27 21:05 Order name: LAB Add On cp 01/27 23:08 Order name: CT Chest For PE Angio cp 01/27 23:35 Order name: Troponin High Sensitivity; Complete Time: 00:43 cp 01/27 20:12 Order name: Cardiac monitoring; Complete Time: 21:02 [facility] 01/27 20:12 Order name: EKG - Nurse/Tech; Complete Time: 20:12 [facility] 01/27 20:12 Order name: IV Saline Lock; Complete Time: 20:47 [facility] 01/27 20:12 Order name: Labs collected and sent; Complete Time: 20:47 [facility] 01/27 20:12 Order name: O2 Per Protocol; Complete Time: 20:47 [facility] 01/27 20:12 Order name: O2 Sat Monitoring; Complete Time: 20:47 [facility] 01/27 20:24 Order name: Urine Dipstick-Ancillary (obtain specimen); Complete Time: 21:02 cp 01/27 20:24 Order name: Urine Test (obtain specimen); Complete Time: 21:02 01/27 23:35 Order name: EKG; Complete Time: 23:36 01/27 23:35 Order name: EKG - Nurse/Tech; Complete Time: 00:09 cp EC/14 23:52 Rate is 84 beats/min. Rhythm is regular. VA interval is normal. QRS interval is normal. cp QT interval is normal. T waves are Inverted in lead aVR. Interpreted by me. Reviewed by me. Administered Medications: 21:27 Drug: morphine 2 mg Route: IV; Rate: calculated rate; Site: left antecubital; lg3 23:41 Drug: morphine 2 mg Route: IV; Rate: calculated rate; Site: left antecubital; kd3 01/28 01:07 Follow up: Response: No adverse reaction; IV Status: Completed infusion; IV Intake: 2ml lg3 Disposition Summary: 01/28/22 00:45 Discharge Ordered Location: Home cp Problem: new cp Symptoms: have improved cp Condition: Stable cp Diagnosis - Chest pain, unspecified cp Followup: cp - With: Private Physician - When: 1 - 2 days - Reason: Recheck today's complaints Discharge Instructions: - Discharge Summary Sheet cp - Nonspecific Chest Pain, Adult cp - Aspirin and Your Heart cp Forms: - Medication Reconciliation Form cp - Thank You Letter cp - Antibiotic Education cp - Prescription Opioid Use cp - Work release form vc1 Prescriptions: - Ibuprofen 800 mg Oral Tablet - take 1 tablet by ORAL route every 8 hours As needed take with food; 30 tablet; cp Refills: 0, Product Selection Permitted Addendum: 01/30/2022 08:32 Co-signature as Attending Physician, Garrison Segovia MD I agree with the assessment and c teague plan of care. Signatures: Dispatcher [employer] EDMD Garrison Segovia MD MD cha Page, Corey, PA PA Heydi Law RN RN lg3 Analisa Bose RN RN ld1 Hannah Higuera RN RN kd3
[2022-01-28 02:00] VITALS: BP 118/75; O2SAT 100
[2022-01-28 02:01] VITALS: TEMP 98.7
--- NOTE | 2022-01-28 08:05 | EKG ---
Test Date: 2022-01-27 Test Time: 23:46:51 Wildlife Conservation Professor: STEW MEASUREMENT RESULTS: Intervals: Rate: 84 IL: 136 QRSD: 70 QT: 342 QTc: 404 [place]: P: 44 IL: 136 QRS: 69 T: 36 INTERPRETIVE STATEMENTS: Normal sinus rhythm Normal ECG Compared to ECG 01/27/2022 19:35:24 Short IL interval no longer present Electronically Signed On 01-28-22 08:05:22 CDT by Sandip Enriquez
--- NOTE | 2022-01-28 08:07 | EKG ---
Test Date: 2022-01-27 Test Time: 19:35:24 Web Content Director: CONG MEASUREMENT RESULTS: Intervals: Rate: 84 AL: 108 QRSD: 72 QT: 344 QTc: 406 [place]: P: 26 AL: 108 QRS: 55 T: 45 INTERPRETIVE STATEMENTS: Sinus rhythm with short AL Otherwise normal ECG Compared to ECG 09/07/2019 10:02:09 Short AL interval now present Electronically Signed On 01-28-22 08:05:30 CDT by Sandip Enriquez
--- NOTE | 2022-01-28 12:18 | RAD REPORT ---
EXAM DESCRIPTION: CT - Chest For Pe Angio - 01/28/2022 6:35 am CLINICAL HISTORY: 46-year-old female with chest pain. COMPARISON: None. TECHNIQUE: CT angiography of the pulmonary arteries was performed following intravenous administrati on of contrast. Coronal and bilateral oblique maximum intensity projections (MIPS) were created. This exam was performed according to our departmental dose optimization program which includes use of aut omated exposure control, adjustment of the mA and/or kV according to patient size and/or use of itera tive reconstruction technique. FINDINGS: Chest: Evaluation through the lungs reveals no focal opacity, pleural effusion or pneumothorax. There is min imal dependent basilar atelectasis and scarring. The tracheobronchial airways are patent. No signific ant mediastinal or axillary lymphadenopathy by CT measurement criteria. Limited evaluation of the upper abdomen shows no acute intra-abdominal abnormalities. The osseous structures are within normal limits. CT angiography: Diagnostic CT angiography of the pulmonary arteries without intraluminal filling defe ct noted to suggest pulmonary arterial embolus. IMPRESSION: 1. Diagnostic pulmonary angiography without findings to suggest pulmonary arterial embol us. 2. The lungs are clear without focal opacity, pleural effusion or pneumothorax. 3. No specific findings are noted to suggest etiology of the patient's chest pain and shortness of br eath. Electronically signed by: Anali Lassiter MD 01/28/2022 12:16 AM CDT Due to temporary technical issues with the PACS/Fluency reporting system, reports are being signed by the in house radiologist without review as a courtesy to ensure prompt reporting. The interpreting r adiologist is fully responsible for the content of the report.
== END 2022-01-28 01:20 | disposition home or self-care (01) ==
LOC: ER 19:18
DX: R07.9 Chest pain, unspecified (principal); Z88.6 Allergy status to analgesic agent
CPT/HCPCS: 36415; 71045; 71275; 80048; 80307; 81003; 81015; 84484; 85025; 85379; 93005; 96365; 96366; 99285; J2270; Q9967

== ENCOUNTER 2022-04-05 17:03 | Emergency (ER) | payer OTHER ==
--- OUTSIDE RECORDS SUMMARY | 2022-04-05 17:07 | XMS REPORT | Continuity of Care Document ---
:1975 Author Organization [facility] t Address [address] [place] [address] Care Team Providers Name Role Phone Asked, No Pcp Primary Care Physician Unavailable SUSIE MARIANO Attending Clinician Unavailable Ciara Grimes MA Attending Clinician Unavailable Doctor Unassigned, [place] Attending Clinician Unavailable Lydia Lu Attending Clinician Kali Lord Attending Clinician Ariana Em MD Attending Clinician ARIANA EM Attending Clinician Unavailable Payers Payer Name Policy Type Policy Number Effective Date Expiration Date S ource Problems Condition Condition Condition Status Onset Resolution Last Treating Co mments Source Name Details Category Date Date Treatment Clinician Date Nexplanon Nexplanon Disease Active 2014-[address] in [address] 0-30 ity of 00:00: [address] H/O tubal H/O tubal Disease Active 2014-08 Uni vers ligation ligation 0-30 ity of 00:00: [address] Well woman Well woman Disease Active 2014-08 U nivers exam with exam with 0-30 ity of routine routine 00:00: [place] [facility]nec[facility] gynecologi 00 Me dical sharron exam sharron exam Branch BMI BMI Disease Active 2014-08 Univers 30.0-30.9, 30.0-30.9, 0-30 it y of adult adult 00:00: [place] [id number] Medical Branch Anxiety Anxiety Disease Active 2014-08 Univers disorder, disorder, 0-30 ity of [place] 00 Medi sharron disorder disorder Branch type type Allergies, Adverse Reactions, Alerts Allergy Allergy Status Severity Reaction(s) Onset Inactive Treating Comm ents Source Name Type Date Date Clinician NO KNOWN Drug Active Univers ALLERGIE Class ity of S [facility] Social History Social Habit Start Date Stop Date Quantity Comments Source Exposure to Not sure [facility] SARS-CoV-2 (event) Medica l Branch Tobacco use and 2015-06-14 2015-06-14 Never used [facility] [place] exposure 00:00:00 00:00:00 Medical Branch Alcohol intake 2015-06-14 2015-06-14 0 /d [facility] 00:00:00 00:00:00 [facility] Sex Ass[birth year] At [birth year] [facility] 00:00:00 00:00:00 Smoking Status Start Date Stop Date Source Tobacco smoking consumption [facility] unknown Never smoker [facility] Medications Ordered Filled Start Stop Current [...] No Univers medications 0-30 ity of 11:14: [address] No known 2014-08 No Univers medications 0-30 ity of 11:14: [address] No known [facility] Immunizations Ordered Filled Immunization Date Status Comments Sourc e Immunization Name Name TDAP 2012-11-[address] [facility] 00:00:00 [facility] TDAP 2012-11-[address] [facility] 00:00:00 [facility] TDAP 2012-11-03 Completed University 00:00:00 [facility] TDAP 2012-11-03 Completed University 00:00:00 [facility] TDAP 2012-11-[address] [facility] 00:00:00 [facility] Vital Signs Vital Name Observation Time Observation Value Comments Source Systolic blood 2021-01-12 20:30:00 111 mm[Hg] Univer sity of pressure [facility] Diastolic blood 2021-01-12 20:30:00 76 mm[facility]Hg[facility] 2021-01-12 20:30:00 88 /min [facility] Respiratory rate 2021-01-12 20:30:00 15 /min [facility] Oxygen saturation in 2021-01-12 20:30:00 100 /min [facility] Arterial blood by [facility] Pulse oximetry [place] Body temperature 2021-01-12 20:05:57 37.44 Vesta [facility] Body height 2021-01-12 19:14:00 152.4 cm [facility] Body weight 2021-01-12 19:14:00 69.4 kg [facility] BMI 2021-01-12 19:14:00 29.88 kg/m2 [facility] Procedures Procedure Date / Time Performing Clinician Source Performed US BREAST RIGHT LIMITED 2022-03-04 14:14:42 [facility] MAMMO BREAST DIAGNOSTIC 2022-03-04 14:04:13 [facility] TOMOSYNTHESIS BILATERAL EXTERNAL PROVIDER 2021-12-04 05:01:00 Doctor Unassigned, No Univ [facility] RECORDS Name [facility] POCT TEST 2021-01-12 19:51:00 Kali Gupta [facility] TROPONIN I 2021-01-12 19:48:00 Kali Gupta [facility] BASIC METABOLIC PANEL 2021-01-12 19:48:00 Kali Gupta [facility] (NA, K, CL, CO2, [facility] Branch GLUCOSE, BUN, CREATININE, CA) URINE DRUG (IMMUNOASSAY) 2021-01-12 19:48:00 Kali Gupta [facility] DRUG Medical [facility] SCREEN CBC WITH DIFF 2021-01-12 19:48:00 Kali Gupta [facility] URINALYSIS 2021-01-12 19:48:00 Kali Gupta [place] [facility] NOTICE OF PRIVACY 2021-01-12 19:07:43 Doctor Unassigned, No Univ [facility] PRACTICES [facility] CONSENT/REFUSAL FOR 2021-01-12 19:07:05 [facility] US ABDOMEN COMPLETE 2020-04-23 21:01:25 Ariana Em [facility] ASSIGNMENT OF BENEFITS 2020-04-23 20:14:53 Doctor Unassigned, No [facility] Plan of Care Planned Activity Planned Date Details Comments Source Future Scheduled 2022-03-14 COVID-[address] [facility] Test 02:38:03 (#1) [code = COVID-19 VACCINE (#1)] Future Scheduled 2022-03-14 [facility] 02:38:03 screening (procedure) [code = 004677947] Future Scheduled 2022-03-14 [facility] Test 02:38:03 malignant neoplasm of cervix (procedure) [code = 732802070] Future Scheduled 2022-03-14 [facility]FLUENZA VACCINE [facility] 02:38:03 [code = INFLUENZA VACCINE] Encounters Start End Encounter Admission Attending Care Care Encounter Source Date/Time Date/Time Type Type Clinicians Facility Department ID 2021-06-15 Emergency [facility] [id number] [facility] 22:10:58 [facility] 2022-03-04 2022-03-04 Hospital [facility], 1.2.840.1 [id number] [place] 00:00:00 00:00:00 Encounter SUSIE 10163.1.1 [id number] .3.352014 .8 2022-03-04 2022-03-04 Telephone Cornelio, 1.2.840.1 [id number] Methodi 00:00:00 00:00:00 Ciara Jacome 07753.1.1 333 s t 3.430.2.7 Hospit a .3.940783 l .8 2022-03-04 2022-03-04 Travel 1.2.840.1 1.2.733.827 [id number] Methodi 00:00:00 00:00:[address] 3.430.2.7 0.2.7.3.698 Ho spita .3.685136 084.8 l .8 2022-03-04 2022-03-04 [facility], 1.2.840.1 [id number] [place] 00:00:00 00:00:00 Encounter SUSIE 23721.1.1 [id number] .3.782285 .8 2022-02-18 2022-02-18 Orders Cornelio, 1.2.840.1 [id number] Methodi 00:00:00 00:00:00 Only Ciara A 25318.1.1 831 s t 3.430.2.7 Hospit a .3.103970 l .8 2022-01-29 2022-01-29 Orders Cornelio, 1.2.840.1 [id number] Methodi 00:00:00 00:00:00 Only Ciara A 80700.1.1 791 s t 3.430.2.7 Hospit a .3.567031 l .8 2021-12-04 2021-12-04 Orders Doctor GARCIA 1.2.840.114 [id number] Univers 00:00:00 00:00:00 Only UnassignedGABRIELLA 350.1.13.10 ity of [place] [facility] 4.2.7.2.686 Apolinar as [id number] [facility] 009 Branch 2021-11-20 2021-11-20 RADHA Loera 1.2.840.114 [id number] Univers 00:00:00 00:00:00 (Out) Lydia QUIROZ 350.1.13.10 i ty of HOSPITAL 4.2.7.2.686 Apolinar as [id number] [facility] 043 Branch 2021-01-12 2021-01-12 [facility] NEFERNANDO 1.2.840.114 [id number] [facility] 14:17:00 16:10:00 Kali Mack 350.1.13.10 i ty of [place] 4.2.7.2.686 [facility] [id number] [facility] 084 Branch 2020-04-23 2020-04-23 [facility] Renetta [facility] 1.2.840.114 [id number] Univers 15:00:00 23:59:00 Encounter Flaquito Mack 350.1.13.10 ity of [place] 4.2.7.2.686 [facility] [id number] [facility] 806 Branch 2020-04-23 2020-04-[address] [facility] [id number] Univers 00:00:00 00:00:[address] [facility] 2020-04-23 2020-04-23 Orders Doctor RADHA 1.2.840.114 [id number] Univers 00:00:00 00:00:00 Only Unassigned, GABRIELLA 350.1.13.10 ity of [place] [facility] 4.2.7.2.686 [facility] [id number] [facility] 009 Branch Results Test Description Test Time Test Comments Results Result Comments Source CT/NG, NAAT, URINE 2021-10-03 21:31:48 Test Item Value Reference Range Interpretation Comme nts GONORRHEA, NAAT NEGATIVE NEGATIVE IMPORTA NT NOTICE: SEE ANNOUNCEMENT AT (test code = [email or web address]://www.PromiseUP/Glints Note: 55517) Assay methodolo gy is nucleic acid amplification by transcriptio n mediated amplification (TMA) utilizing the A ptima Combo 2 Assay. CHLAMYDIA, NAAT NEGATIVE NEGATIVE IMPORTA NT NOTICE: SEE ANNOUNCEMENT AT (test code = https://www.PromiseUP/RocheBlue Sky BiotechKit Note: 21294) Assay methodolo gy is nucleic acid amplification by transcriptio n mediated amplification (TMA) utilizing the A ptima Combo 2 Assay. PAP TEST, THINPREP, [id number] 16:53:35 Test Item Value Reference Range Interpretation Comments SOURCE: (test Cervical/Endo code = 8001) cervical SLIDES: (test 1 code = 8011) LMP: (test code = 09/23/2021 8021) SPECIMEN (NOTE) Satisfactory f or ADEQUACY: (test evaluation. Endocervical code = 76298) cells/transfor mation zone component not identified. INTERPRETATION: NILM/NO (test code = EPITH. --------- 46095) ABNORMALITY;S -------- EE BELOW NEGATIVE FO R INTRAEPITHELIAL LESION OR MALIGNANCY ( NILM) --------- --------- --------- - OTHER COMMENTS: (NOTE) Shift in radha ra (test code = suggestive of b acterial 8081) vaginosis. COOK HOUSE SUPERVISOR: Toby (test code = POLO Atwood( 8101) CP) IAC LOCATION: (test (NOTE) Specimens pr ocessed and code = 68783) [facility] at [facility], [address] [place] [address], [place] [address], , CLIA: [id number] CPT: (test code = (NOTE) 57268 UNLE SS OTHERWISE 8140) INDICATED, COMP UTER AIDED AND CYTOTECHNOLOGIS T SCREENING PERFO RMED. The Pap test is a s creening test with an in herent, but low probabi lity of error. Your pat ient should be remin ded to consult you imm ediately if she experien theodora any suspicious sign s or symptoms, regar dless of her Pap test re sult. An alternate repor t format containing imag es or consolidated pr ior Pap history is avai lizzeth as applicable. HPV HIGH RISK WITH GENOTYPE, [id number] 16:49:43 Test Item Value Reference Range Interpretation Comments HPV HIGH RISK INTERP NEGATIVE NEGATIVE (test code = 22530) HPV 16 (test code = NEGATIVE 42814) HPV 18 (test code = NEGATIVE 97570) HPV, HR, OTHER NEGATIVE Testing meth odology is GENOTYPES (test code real-ti me PCR utilizing = 31302) hydrolysis prob es with the Bea Wendy 4800 system. The vitaliy t individually de tects genotypes 16 an d 18, as well as the oth er 12 high risk types (31,33,35,39,45 ,51,52,56 ,58,59,66,68). The expected result is negative. A neg ative result does not rule out the presence of HPV not included in the genotype set, a low leve l of infection or sp ecimen sampling error. UNLESS OTHERWISE INDIC ATED, ALL TESTING PERFORM ED [facility], [facility]. [address] [place] [address] LABORATORY DIRE CTOR: TITO PETE M.D. CLIA NUMBER [id number] CAP ACCREDITATI ON NO. VAGINAL PATHOGENS DNA [id number] 13:52:37 Test Item Value Reference Range Interpretation Comments KATHY SPECIES (test code = 33339) NEGATIVE NEGATIVE G. VAGINALIS (test code = 36617) POSITIVE NEGATIVE A T. VAGINALIS (test code = 55105) NEGATIVE NEGATIVE [id number] 03:52:07 Test Item Value Reference Range Interpretation Comments RPR RESULT (test NON-REACTIVE NON-REACTIVE code = 3501) RPR TITER (test NOT INDIC. NOT INDIC. UNLESS OTHE RWISE code = 3500) TITER INDICATED, ALL TESTING PERFORMED [facility] NICOR PATHOLOGY [facility]. [address] [place], [place] [address] LABORATORY DIRE CTOR: TITO PETE M.D. CLIA NUMBER [id number] CAP ACCREDITATI ON NO. HIV 1/2 4TH GEN, RFLX [id number] 03:45:56 Test Item Value Reference Range Interpretation Comments HIV 1/2 4TH GEN, RFLX CONF (test NON-REACTIVE NON-REACTIVE code = 3514) HEPATITIS PANEL, [id number] 03:45:56 Test Item Value Reference Range Interpretation Comments HEPATITIS A IgM (test NON-REACTIVE NON-REACTIVE code = 84220) HEPATITIS B CORE IgM NON-REACTIVE NON-REACTIVE (test code = 4644) HEPATITIS B SURF AG NON-REACTIVE NON-REACTIVE (test code = 2739) HEPATITIS C ANTIBODY REACTIVE NON-REACTIVE A (test code = 4675) INTERPRETATION (NOTE) Hepatitis A HEPATITIS A: (test serology shows no code = 2552) evidence of acu te hepatitis A. INTERPRETATION (NOTE) Hepatitis B HEPATITIS B: (test serology shows no code = 66752) evidence of ac monie hepatitis B and no indication of exposure to hepatitis B vir us in the previous si xto eight months. INTERPRETATION (NOTE) Hepatitis C HEPATITIS C: (test serology is code = 64146) consistent wit h exposure to hepatitis Cviru s. The CDC recomme nds performing a supplemental confirmatory te ston initial positiv e hepatitis C ant ibody tests. HCV PCR quantitativecan be used to confirm these results o n a new sample (See MMWR, 2003;52 R R-3). Troponin [id number] 20:29:39 Test Item Value Reference Range Interpretation Comments TROPONIN I (test 0.000 ng/mL See_Comment [Automated code = 8808458642) message] The system which generated this result [...] ? Lab Interpretation Normal (test code = 61737-1) [facility] [id number] 20:29:14 Test Item Value Reference Range Interpretation Comments AMPHET (test code = Negative Negative 4328954601) MILAGROS U (test code = Negative Negative 4224329743) BENZO U (test code = Presumptive Positive Negative A 9900897001) Cocaine Metabolite (test Negative Negative code = 9501853078) METHADONE (test code = Negative Negative 8768839889) OPIATES (test code = Negative Negative 5642443575) PCP (test code = Negative Negative 4367271109) THC (test code = Presumptive Positive Negative A 2292125929) ADRIANA (test code = ADRIANA) Urine Drug [...] testing). Lab Interpretation (test Abnormal code = 68707-7) [facility] Metabolic Panel (NA, K, CL, CO2, GLUCOSE, BUN, CREATININE, CA)2021-01-12 20:18:17 Test Item Value Reference Range Interpretation Comments NA (test code = 138 mmol/L 135-145 1733730626) K (test code = 3.8 mmol/L 3.5-5.0 9566845122) CL (test code = 103 mmol/L 98-108 5128972941) CO2 TOTAL (test code = 27 mmol/L 23-31 7404526746) AGAP (test code = 2-16 7507487687) BUN (test code = 9 mg/dL 7-23 0605697048) GLUCOSE (test code = 100 mg/dL 70-110 4372221563) CREATININE (test code = 0.48 mg/dL 0.50-1.04 L 1986007557) CALCIUM (test code = 9.1 mg/dL 8.6-10.6 5367739991) eGFR (test code = mL/min/1.73m2 6841856327) ADRIANA (test code = ADRIANA) Association of [...] tests). Lab Interpretation Abnormal (test code = 86974-7) [facility] Center[facility]ysis2021-[facility]-30 20:05:48 Test Item Value Reference Range Interpretation Comments APPEARANCE (test code = Clear Clear 3489759350) COLOR (test code = Yellow Yellow 1689056746) PH (test code = 4.8-8.0 1968506656) SP GRAVITY (test code = 1.003-1.030 8704488937) GLU U QUAL (test code = Normal Normal 3424568112) BLOOD (test code = Negative Negative 7585967209) KETONES (test code = Negative Negative 9590402779) PROTEIN (test code = Negative Negative 2887-8) UROBILIN (test code = Normal Normal 0024503773) BILIRUBIN (test code = Negative Negative 0978208019) NITRITE (test code = Negative Negative 1378854650) LEUK SUSAN (test code = Negative Negative 6207733142) RBC/HPF (test code = See_Comment [Autom ated message] 8782192821) The system wedgies generated this result transmitted ref erence range: 0 - 3 HP F. The reference range was not used to int erpret this result as normal/abnormal . WBC/HPF (test code = See_Comment [Autom ated message] 1007068121) The system wedgies generated this result transmitted ref erence range: 0 - 5 HP F. The reference range was not used to int erpret this result as normal/abnormal . BACTERIA (test code = Negative Negative 5444389469) Lab Interpretation (test Normal code = 16199-9) [facility] with [id number] 19:58:59 Test Item Value Reference Range Interpretation Comments WBC (test code = See_Comment [Automated 9790-2) message] The sy stem which generated this [...] RDW-SD (test code = 40.3 fL 39.0-49.9 96798-6) RDW-CV (test code = 12.0 % 12.0-15.5 788-0) PLT (test code = See_Comment [Automated 777-3) message] The sy stem which generated this result transmitted reference range : 166 - 358 10*3/ ?L. The reference r [place] was not used to interpret this result as normal/abnormal . MPV (test code = 10.3 fL 9.5-12.9 99472-8) NRBC/100 WBC (test See_Comment [Automat ed code = 5775787571) message] The system which generated this result transmitted reference range : 0.0 - 10.0 /100 WBCs. The refer ence range was not u sed to interpret th is result as normal/abnormal . NRBC x10^3 (test code <0.01 See_Comment [Auto mated = 5530124847) message] The s ystem which generated this result transmitted reference range : 10*3/?L. The reference range was not used to interpret this result as normal/abnormal . GRAN MAT (NEUT) % 65.8 % (test code = 770-8) IMM GRAN % (test code 0.30 % = 5100195391) LYMPH % (test code = 22.3 % 736-9) MONO % (test code = 10.2 % 5905-5) EOS % (test code = 0.9 % 713-8) BASO % (test code = 0.5 % 706-2) GRAN MAT x10^3(ANC) 6.11 10*3/uL 1.88-7.09 (test code = 4712171427) IMM GRAN x10^3 (test 0.03 10*3/uL 0.00-0.06 code = 3986431587) LYMPH x10^3 (test code 2.07 10*3/uL 1.32-3.29 = 731-0) MONO x10^3 (test code 0.95 10*3/uL 0.33-0.92 H = 742-7) EOS x10^3 (test code = 0.08 10*3/uL 0.03-0.39 711-2) BASO x10^3 (test code 0.05 10*3/uL 0.01-0.07 = 704-7) Lab Interpretation Abnormal (test code = 99778-5) [facility] [id number] 19:51:00 Test Item Value Reference Range Interpretation Comments POCT PREG (test code = 1605) negative On board controls acceptable with present C Line (test code = 3574) POCT PREG LOT # (test code = [id number]) POCT PREG TEST DATE (test 07/15/2022 code = 3576) Lab Interpretation (test code = Normal 10551-4) [facility] Center[facility] A[facility]EN [id number] 22:27:45 1. ?Normal size liver with normal echotexture.. No focal lesion is seen.2. ?Rest of the study is also unremarkable. Preliminary Report Dictated by Resident: Adrián Guzman MD., have reviewed this study and agree with theabove report.EXAM: US ABDOMEN COMPLETE HISTORY: 45 years-old Female with Abnormal results of liver functionstudies Chronic hepatitis C without hepatic coma Received faxed orders forabd complete ultrasound. TECHNIQUE: Complete abdominal ultrasound was performed. Main portal veinwas evaluated with color Doppler imaging. Mat Cutter images wereobtained for the record. COMPARISON: None [...] cystic renal lesions are detected.Collecting System: No hydronephrosis.Other:None. LEFT:Size: 10.7 x 5.2 x 4.6 cm.Parenchyma:Normal renal cortical echogenicity and thickness. Nofocal solidor cystic renal lesions are detected.Collecting System: No hydronephrosis.Other: None. AORTA:Abdominal aorta is normal in caliber where visualized. IVC:IVC is normal in appearance where visualized. [facility], Radiant Results Inft User - 04/23/2020 5:28 PM CDTEXAM: US ABDOMEN COMPLETEHISTORY: 45 years-old Female with Abnormal results of liver functionstudies Chronic hepatitis C without hepatic coma Received faxed orders forabd complete ultrasound.TECHNIQUE: Complete abdominal ultrasound was perf ormed. Main portal veinwas evaluated with color Doppler imaging. Mat Cutter images wereobtained for the record.COMPARISON: NoneFINDINGS: LIVER: Length: 15.3 cm.Parenchyma: Liver is normal in size and shows normal echotexture.. No focallesion is detected.Portal vein: Hepatopetal flow present in themain portal vein. The mainportal vein measures 0.78 cm in diameter.GALLBLADDER:No cholelithiasis.Normal gallbladder wall thickness, 2 mm.Negative Mejia's sign.BILE DUCTS:No intra- or extrahepatic biliary dilatation..Common Duct diameter: 2 mm.PANCREAS: The visualized portions of the pancreas are unrem arkable.SPLEEN: The spleen is normal in size. The [...] focal lesion is seen.2. Rest of the stud y is also unremarkable.Preliminary Report Dictated by Resident: Adrián Sarkar MD., have reviewed this study and agree with theabove report.[facility] MANISH CAD DIGITAL 2019-07-24 11:41:14 - SCR MAMM BILATERAL MANISH CAD DIGITALBILATERAL DIGITAL SCREENING MAMMOGRAM 3D/2D WITH CAD: 07/21/2019CLINICAL: Asymptomatic. Digital breast tomosynthesis was performed in addition to routine CC and MLOviews. Current mammographic images were evaluated by either a [employer] M-Vu or a Hologic ImageChecker CAD (computer aided detection system). No prior exams were available for comparison. The tissue of both breasts is heterogeneously dense. This may lower the sensitivity of mammography. No suspicious mass, architectural distortion, malignant type calcification, or lymph node abnormality detected. IMPRESSION: NEGATIVEThere is no mammographic evidence of malignancy. Resume annual screening mammography inone year. Avila Falcon/penrad:07/24/2019 11:41:14 Attending Technologist: Stefani Nicholson MM, [facility] MammographyImaging Technologist: Layne Alcantara MM, [facility] Mammographyletter sent: BIRADS 1-2 Normal Mammogram BI-RADS: 1 Negative"
[2022-04-05] MEDS ORDERED: ACETAMINOPHEN 500 MG TAB ONE (17:49)
[2022-04-05] MEDS ORDERED: LIDOCAINE VISCOUS 2% SOLN 15 ML UDC ONE (17:49)
--- NOTE | 2022-04-05 19:05 | ER ---
Nurse's Notes [facility] Name: Massiel Sharma Age: 47 yrs Sex: Female : 1975 Arrival Date: 04/05/2022 Time: 17:07 Bed Waiting Private MD: Diagnosis: Acute upper respiratory infection, unspecified;Unspecified acute conjunctivitis, right eye;Otitis media, unspecified, bilateral Presentation: 04/05 17:16 Chief complaint: Patient states: sore throat that began Wednesday and has gotten worse, aa5 also c/o andrea ear pain. Pt also c/o drainage to right eye that began today. Pt reports negative home covid-19 test. Coronavirus screen: cough unrelated to allergies, sore throat. Ebola Screen: No symptoms or risks identified at this time. Initial Sepsis Screen: Does the patient meet any 2 criteria? No. Patient's initial sepsis screen is negative. Does the patient have a suspected source of infection? No. Patient's initial sepsis screen is negative. Risk Assessment: Do you want to hurt yourself or someone else? Patient reports no desire to harm self or others. Onset of symptoms was March 2022. 17:16 Acuity: KRISSY 4 aa5 17:16 Method Of Arrival: Ambulatory aa5 Triage Assessment: 17:25 General: Appears uncomfortable, Behavior is calm, cooperative. Pain: Complains of pain aa5 in andrea ears. EENT: Reports pain in right ear and left ear sore throat . Respiratory: Airway is patent Respiratory effort is even, unlabored, Respiratory pattern is regular, symmetrical. Derm: Skin is pink, warm \T\ dry. Historical: - Allergies: 17:18 Ketorolac; aa5 17:18 Toradol; aa5 - PMHx: 17:18 Hepatitis; aa5 - PSHx: 17:18 section; aa5 - Immunization history:: Adult Immunizations unknown. - Social history:: Smoking status: Patient denies any tobacco usage or history of. Assessment: 19:15 Reassessment: Patient is alert, oriented x 3, equal unlabored respirations, skin aa5 warm/dry/pink. Vital Signs: 17:16 BP 129 / 82; Pulse 97; Resp 16 S; Temp 97.1(TE); Pulse Ox 98% on R/A; Weight 65.77 kg aa5 (R); Height 5 ft. 0 in. (152.40 cm) (R); 17:16 Body Mass Index 28.32 (65.77 kg, 152.40 cm) aa5 ED Course: 17:07 Patient arrived in ED. as 17:09 Grarison Isaacs PA is PHCP. cp 17:09 Deb Louis MD is Attending Physician. cp 17:16 Arm band placed on. aa5 17:18 Triage completed. aa5 19:15 No provider procedures requiring assistance completed. Patient did not have IV access aa5 during this emergency room visit. Administered Medications: 17:42 Drug: Viscous Lidocaine Liquid (4 %) 5 ml {Note: taken orally for sore throat .} Route: aa5 Mucous Membrane; 19:10 Follow up: Response: No adverse reaction; Pain is decreased aa5 17:42 Drug: Tylenol 1000 mg Route: PO; aa5 19:10 Follow up: Response: No adverse reaction aa5 Medication: 19:15 VIS not applicable for this client. aa5 Outcome: 19:05 Discharge ordered by . cp 19:15 Discharged to home ambulatory. aa5 19:15 Condition: stable 19:15 Discharge instructions given to patient, Instructed on discharge instructions, follow up and referral plans. medication usage, Demonstrated understanding of instructions, follow-up care, medications, Prescriptions given X 4. 19:15 Patient left the ED. aa5 Signatures: Nikia Morton Audri, RN RN aa5 Garrison Isaacs PA PA cp Corrections: (The following items were deleted from the chart) 17:18 17:18 Allergies: tramadol; aa5 aa5
--- NOTE | 2022-04-05 19:05 | EDPHYS ---
Physician Documentation [facility] Name: Massiel Sharma Age: 47 yrs Sex: Female : 1975 Arrival Date: 04/05/2022 Time: 17:07 Bed Waiting Private MD: ED Physician Deb Louis HPI: 04/05 17:30 This 47 yrs old Female presents to ER via Ambulatory with complaints of Cough, cp Sore Throat, Ear Pain, Drainage From Eye. 17:30 The patient presents with sore throat, dysphagia, of both solids and liquids. The cp patient describes throat pain as constant. 17:30 Onset: The symptoms/episode began/occurred 4 day(s) ago. cp 17:30 Severity of symptoms: in the emergency department the symptoms are unchanged, despite cp home interventions. Associated signs and symptoms: Pertinent positives: cough, dysphagia, ear pain, right eye redness and right eye drainage, Pertinent negatives diarrhea, fever, headache, vomiting. Historical: - Allergies: 17:18 Ketorolac; aa5 17:18 Toradol; aa5 - PMHx: 17:18 Hepatitis; aa5 - PSHx: 17:18 section; aa5 - Immunization history:: Adult Immunizations unknown. - Social history:: Smoking status: Patient denies any tobacco usage or history of. ROS: 17:35 Constitutional: Negative for body aches, chills, fever, poor PO intake. cp 17:35 Eyes: Positive for discharge, redness, of the right eye. cp 17:35 ENT: Positive for ear pain, sore throat, Negative for drainage from ear(s), difficulty swallowing, difficulty handling secretions. 17:35 Cardiovascular: Negative for chest pain, palpitations. 17:35 Respiratory: Positive for cough, Negative for shortness of breath, wheezing. 17:35 Abdomen/GI: Negative for abdominal pain, vomiting, diarrhea, constipation. 17:35 Skin: Negative for cellulitis, rash. 17:35 Neuro: Negative for altered mental status, dizziness, headache, weakness. 17:35 All other systems are negative. Exam: 17:40 Constitutional: The patient appears in no acute distress, alert, awake, non-toxic, well cp developed, well nourished. 17:40 Head/Face: Normocephalic, atraumatic. cp 17:40 Eyes: Periorbital structures: appear normal, Pupils: equal, round, and reactive to light and accomodation, Extraocular movements: intact throughout, Conjunctiva: exudate, in the right eye, injected, in the right eye, Corneas: are normal, Lids and lashes: appear normal, bilaterally, Examination of the other eye reveals no obvious gross abnormality. 17:40 ENT: External ear(s): are unremarkable, Ear canal(s): are normal, clear, TM's: bulging, is not appreciated, bilaterally, erythema, that is mild, bilaterally, Nose: is normal, Mouth: Lips: moist, Oral mucosa: moist, Posterior pharynx: Airway: no evidence of obstruction, patent, Tonsils: no enlargement, no exudate, swelling, is not appreciated, erythema, that is moderate, exudate, is not appreciated. 17:40 Neck: ROM/movement: is normal, is supple, no meningismus, no nuchal rigidity. 17:40 Chest/axilla: Inspection: normal. 17:40 Cardiovascular: Rate: normal, Rhythm: regular. 17:40 Respiratory: the patient does not display signs of respiratory distress, Respirations: normal, no use of accessory muscles, no retractions, labored breathing, is not present, Breath sounds: are clear throughout, no decreased breath sounds, no stridor, no wheezing. 17:40 Abdomen/GI: Exam negative for discomfort, distension, guarding, Inspection: abdomen appears normal. Vital Signs: 17:16 BP 129 / 82; Pulse 97; Resp 16 S; Temp 97.1(TE); Pulse Ox 98% on R/A; Weight 65.77 kg aa5 (R); Height 5 ft. 0 in. (152.40 cm) (R); 17:16 Body Mass Index 28.32 (65.77 kg, 152.40 cm) aa5 MDM: 19:05 Patient medically screened. cp 19:05 Data reviewed: vital signs, nurses notes, lab test result(s). cp 19:05 Differential diagnosis: epiglottitis, gingivostomatitis, group A strep tonsillitis, cp laryngitis, peritonsillar abscess pharyngitis, retropharyngeal abcess tonsillitis, tracheobronchitis, uvulitis. Counseling: I had a detailed discussion with the patient and/or guardian regarding: the historical points, exam findings, and any diagnostic results supporting the discharge/admit diagnosis, lab results, to return to the emergency department if symptoms worsen or persist or if there are any questions or concerns that arise at home. Response to treatment: the patient's symptoms have mildly improved after treatment. 04/05 17:24 Order name: Strep cp 04/05 17:24 Order name: COVID-19 SARS RT PCR (Document "Date of Onset" if Symptomatic) cp 04/05 17:24 Order name: Influenza Screen (a \\T\\ B) 04/05 18:15 Order name: Throat Culture EDMS Administered Medications: 17:42 Drug: Viscous Lidocaine Liquid (4 %) 5 ml {Note: taken orally for sore throat .} Route: aa5 Mucous Membrane; 19:10 Follow up: Response: No adverse reaction; Pain is decreased aa5 17:42 Drug: Tylenol 1000 mg Route: PO; aa5 19:10 Follow up: Response: No adverse reaction aa5 Disposition Summary: 04/05/22 19:05 Discharge Ordered Location: Home cp Problem: new cp Symptoms: have improved cp Condition: Stable cp Diagnosis - Acute upper respiratory infection, unspecified cp - Unspecified acute conjunctivitis, right eye cp - Otitis media, unspecified, bilateral cp Followup: cp - With: Private Physician - When: 2 - 3 days - Reason: Worsening of condition Discharge Instructions: - Discharge Summary Sheet cp - Otitis Media, Adult cp - Upper Respiratory Infection, Adult cp - Cough, Adult, [id number] cp Forms: - Medication Reconciliation Form cp - Thank You Letter cp - Antibiotic Education cp - Prescription Opioid Use cp Prescriptions: - Bromfed DM 2-30-10 mg/5 mL Oral syrup - take 10 milliliter by ORAL route every 4 hours; 180 milliliter; Refills: 0, cp Product Selection Permitted - Lidocaine Viscous - take 5 milliliter by ORAL route every 4-6 hours; 1 bottle; Refills: 0, Product cp Selection Permitted - Amoxicillin 875 mg Oral Tablet - take 1 tablet by ORAL route every 12 hours for 10 days; 20 tablet; Refills: 0, cp Product Selection Permitted - Vigamox 0.5 % Ophthalmic Drops - instill 1 drop by OPHTHALMIC route every 8 hours for 7 days; 5 milliliter; cp Refills: 0, Product Selection Permitted Signatures: [employer] Thais Chicas RN RN aa5 Garrison Isaacs PA PA cp Corrections: (The following items were deleted from the chart) 17:18 17:18 Allergies: tramadol; aa5 axel 04/06 17:51 04/05 11:30 ECG was reviewed by the Attending Physician. cp jody 04/06 17:51 04/05 11:30 Rate is 114 beats/min. Rhythm is regular. NH interval is normal. QRS cp interval is normal. QT interval is normal. T waves are Inverted in lead aVR. Interpreted by me. Reviewed by me. cp
[2022-04-05 21:08] VITALS: BP 129/82; TEMP 97.1; O2SAT 98
== END 2022-04-05 19:15 | disposition home or self-care (01) ==
LOC: ER 17:03
DX: J06.9 Acute upper respiratory infection, unspecified (principal); H66.93 Otitis media, unspecified, bilateral; H10.31 Unspecified acute conjunctivitis, right eye; Z20.822 Contact with and (suspected) exposure to COVID-19; Z88.5 Allergy status to narcotic agent; Z88.8 Allergy status to other drugs, medicaments and biological substances
CPT/HCPCS: 87070; 87081; 87804 ×2; U0003; 99283

== ENCOUNTER 2022-10-11 14:02 | Emergency (ER) | payer OTHER ==
--- OUTSIDE RECORDS SUMMARY | 2022-10-11 14:10 | XMS REPORT | Continuity of Care Document ---
:1975 Author Organization [facility] t Address [address] [place] [address] Care Team Providers Name Role Phone Asked, No Pcp Primary Care Physician Unavailable Stacie Soto MD Attending Clinician Ciara Grimes Attending Clinician Unavailable Doctor Unassigned, [place] Attending Clinician Unavailable Lydia Lu Attending Clinician [...] place in place 0-30 ity of 00:00: [address] Branch H/O tubal H/O tubal Disease Active 2014-08 Uni vers ligation ligation 0-30 ity of 00:00: [address] Well woman Well woman Disease Active 2014-08 U nivers exam with exam with 0-30 ity of routine routine 00:00: [place] [facility] 00 Me dical sharron exam sharron exam Branch BMI BMI Disease Active 2014-08 Univers 30.0-30.9, 30.0-30.9, 0-30 it y of adult adult 00:00: [place] [id number] Medical Branch Anxiety Anxiety Disease Active 2014-08 Univers disorder, disorder, 0-30 ity of unspec[place] 00 Medi [facility] disorder disorder Branch type type Allergies, Adverse Reactions, Alerts Allergy Allergy Status Severity Reaction(s) Onset Inactive Treating Comm ents Source Name Type Date Date Clinician Noe - Propensi Active Intraven ty to 6-25 ous adverse 00:00: reaction 00 to drug Demerol Propensi Active - Oral ty to 4-02 adverse 00:00: reaction 00 to drug NO KNOWN Drug Active Univers ALLERGIE Class ity of S [facility] Social History Social Habit Start Date Stop Date Quantity Comments Source Exposure to Not sure [facility] SARS-CoV-2 (event) Medica l Branch Tobacco use and 2015-06-14 2015-06-14 Never used [facility] exposure 00:00:00 00:00:00 Medical Branch Alcohol intake 2015-06-14 2015-06-14 0 /d [facility] 00:00:00 00:00:00 Medical Branch Sex Ass[birth year] At [birth year] [facility] 00:00:00 00:00:00 Smoking Status Start Date Stop Date Source Tobacco smoking consumption Meth [facility] unknown Never smoker [facility] Medications Ordered Filled Start Stop Current Ordering Indication Dosage Frequency Signature Comments Components Source Medication Medication Date Date Medication? Clinician (SIG) Name Name Dose 2021-0 No Unknown 04-22 00:00: 00 Dose 2021-0 No Unknown 04-22 00:00: 00 Dose 2-0 No Unknown 04-22 00:00: 00 Dose 2-0 No Unknown 04-22 00:00: 00 Dose 2-0 No Unknown 8- 00:00: 00 Dose 2022-0 No Unknown 8-16 00:00: 00 Dose 2022-0 No Unknown 8-16 00:00: 00 Dose 2022-0 No Unknown 8-16 00:00: 00 Dose 2022-0 No Unknown 8-16 00:00: 00 Dose 2022-0 No Unknown 8-16 00:00: 00 Dose 2022-0 No Unknown 8-16 00:00: 00 Dose 2022-0 No Unknown 8-16 00:00: 00 Dose 2022-0 No Unknown 2- 00:00: 00 Dose 2022-0 No Unknown 2-22 00:00: 00 Dose 2-0 No Unknown 2-22 00:00: 00 Dose 2-0 No Unknown 2-22 00:00: 00 Dose 2-0 No Unknown 2-22 00:00: 00 Dose 2-0 No Unknown 2-22 00:00: 00 Dose 2-0 No Unknown 2-22 00:00: 00 Dose 2021-0 No Unknown 2-22 00:00: 00 Dose 2-0 No Unknown 2-22 00:00: 00 Dose 2021-0 No Unknown 2-22 00:00: 00 Dose 2021-0 No Unknown 2-22 00:00: 00 Dose 2021-0 No Unknown 2-22 00:00: 00 Dose 2021-0 No Unknown 2-22 00:00: 00 Dose 2021-0 No Unknown 2-22 00:00: 00 Dose 2021-0 No Unknown 2-22 00:00: 00 Dose 2021-0 No Unknown 2-22 00:00: 00 Dose 2021-0 No Unknown 2-22 00:00: 00 Dose 2021-0 No Unknown 2-22 00:00: 00 Dose 2021-0 No Unknown 2-22 00:00: 00 Dose 2021-0 No Unknown 2-22 00:00: 00 Dose 2021-0 No Unknown 2-21 00:00: 00 Dose 2021-0 No Unknown 2-21 00:00: 00 Dose 2021-0 No Unknown 2-21 00:00: 00 Dose 2021-0 No Unknown 2-21 00:00: 00 NaCl 0.9% 2020- No 1000mL at 999 Uni vers (NS) bolus 5-30 05-30 mL/hr, ity of infusion 19:30: 21:07 1,000 mL, Apolinar as 1,000 mL 00 :00 IV Medical Infusion, Branch ONCE, 1 dose, 01/12/21 at 1430, KAREN Dose 2019-0 No Unknown 8-27 00:00: 00 Dose 2019-0 No Unknown 8-27 00:00: 00 Dose 2019-0 No Unknown 8-27 00:00: 00 Dose 2019-0 No Unknown 8-27 00:00: 00 Dose 2019-0 No Unknown 7-25 00:00: 00 Dose 2019-0 No Unknown 7-25 00:00: 00 Dose 2020-0 No Unknown 7-25 00:00: 00 Dose 2020-0 No Unknown 7-25 00:00: 00 Dose 2020-0 No Unknown 7-25 00:00: 00 Dose 2020-0 No Unknown 7-25 00:00: 00 Dose 2020-0 No Unknown 7-25 00:00: 00 Dose 2020-0 No Unknown 7-25 00:00: 00 Flagyl 500 2020-0 No 1mg mg tablet 6- 00:00: 00 Flagyl 500 2020-0 No 1mg mg tablet 6 00:00: 00 Flagyl 500 2020-0 No 1mg mg tablet 6 00:00: 00 Flagyl 500 2020-0 No 1mg mg tablet 6 00:00: 00 Dose 2020-0 No Unknown 3-09 00:00: 00 Dose 2020-0 No Unknown 3-09 00:00: 00 Dose 2020-0 No Unknown 3-09 00:00: 00 Dose 2020-0 No Unknown 3-09 00:00: 00 Dose 2019-0 No Unknown 9-05 00:00: 00 Dose 2019-0 No Unknown 9-05 00:00: 00 Dose 2019-0 No Unknown 9-05 00:00: 00 Dose 2019-0 No Unknown 9-05 00:00: 00 prednisone 2019-0 No 1mg 20 mg 6-04 tablet 00:00: 00 azithromyci 2019-0 No mg n 250 mg 6-04 tablet 00:00: 00 benzonatate 2019-0 No 1mg 200 mg 6-04 capsule 00:00: 00 Bromfed DM 2019-0 No 5mg/5 2 mg-30 6-04 mL mg-10 mg/5 00:00: mL oral 00 syrup prednisone 2019-0 No 1mg 20 mg 6-04 tablet 00:00: 00 azithromyci 2019-0 No mg n 250 mg 6-04 tablet 00:00: 00 benzonatate 2019-0 No 1mg 200 mg 6-04 capsule 00:00: 00 Bromfed DM 2019-0 No 5mg/5 2 mg-30 6-04 mL mg-10 mg/5 00:00: mL oral 00 syrup prednisone 2019-0 No 1mg 20 mg 6-04 tablet 00:00: 00 azithromyci 2019-0 No mg n 250 mg 6-04 tablet 00:00: 00 benzonatate 2019-0 No 1mg 200 mg 6-04 capsule 00:00: 00 Bromfed DM 2019-0 No 5mg/5 2 mg-30 6-04 mL mg-10 mg/5 00:00: mL oral 00 syrup prednisone 2019-0 No 1mg 20 mg 6-04 tablet 00:00: 00 azithromyci 2019-0 No mg n 250 mg 6-04 tablet 00:00: 00 benzonatate 2019-0 No 1mg 200 mg 6-04 capsule 00:00: 00 Bromfed DM 2019-0 No 5mg/5 2 mg-30 6-04 mL mg-10 mg/5 00:00: mL oral 00 syrup metronidazo 2018-0 No 1mg le 500 mg 5-17 tablet 00:00: 00 metronidazo 2018-0 No 1mg le 500 mg 5-17 tablet 00:00: 00 metronidazo 2018-0 No 1mg le 500 mg 5-17 tablet 00:00: 00 metronidazo 2018-0 No 1mg le 500 mg 5-17 tablet 00:00: 00 pantoprazol 2018-0 No 1mg e 40 mg 2-12 tablet,nestor 00:00: yed release 00 metronidazo 2018-0 No 1mg le 500 mg 2-12 tablet 00:00: 00 pantoprazol 2018-0 No 1mg e 40 mg 2-12 tablet,nestor 00:00: yed release 00 metronidazo 2018-0 No 1mg le 500 mg 2-12 tablet 00:00: 00 pantoprazol 2018-0 No 1mg e 40 mg 2-12 tablet,nestor 00:00: yed release 00 metronidazo 2018-0 No 1mg le 500 mg 2-12 tablet 00:00: 00 pantoprazol 2018-0 No 1mg e 40 mg 2-12 tablet,nestor 00:00: yed release 00 metronidazo 2018-0 No 1mg le 500 mg 2-12 tablet 00:00: 00 metformin 2017-0 No 1mg 500 mg 3-06 tablet 00:00: 00 metformin 2017-0 No 1mg 500 mg 3-06 tablet 00:00: 00 metformin 2017-0 No 1mg 500 mg 3-06 tablet 00:00: 00 metformin 2017-0 No 1mg 500 mg 3-06 tablet 00:00: 00 prednisone 2017-0 No mg 10 mg 2-16 tablet 00:00: 00 prednisone 2017-0 No 1mg 20 mg 2-16 tablet 00:00: 00 ibuprofen 2017-0 No 1mg 800 mg 2-16 tablet 00:00: 00 prednisone 2017-0 No mg 10 mg 2-16 tablet 00:00: 00 prednisone 2017-0 No 1mg 20 mg 2-16 tablet 00:00: 00 ibuprofen 2017-0 No 1mg 800 mg 2-16 tablet 00:00: 00 prednisone 2017-0 No mg 10 mg 2-16 tablet 00:00: 00 prednisone 2017-0 No 1mg 20 mg 2-16 tablet 00:00: 00 ibuprofen 2017-0 No 1mg 800 mg 2-16 tablet 00:00: 00 prednisone 2017-0 No mg 10 mg 2-16 tablet 00:00: 00 prednisone 2017-0 No 1mg 20 mg 2-16 tablet 00:00: 00 ibuprofen 2017-0 No 1mg 800 mg 2-16 tablet 00:00: 00 doxycycline 2016-0 No 1mg hyclate 100 5-07 mg tablet 00:00: 00 doxycycline 2016-0 No 1mg hyclate 100 5-07 mg tablet 00:00: 00 doxycycline 2016-0 No 1mg hyclate 100 5-07 mg tablet 00:00: 00 doxycycline 2016-0 No 1mg hyclate 100 5-07 mg tablet 00:00: 00 ibuprofen 2016-0 No 1mg 800 mg 5-03 tablet 00:00: 00 Keflex 500 2016-0 No 2mg mg capsule 5-03 00:00: 00 ibuprofen 2016-0 No 1mg 800 mg 5-03 tablet 00:00: 00 Keflex 500 2016-0 No 2mg mg capsule 5-03 00:00: 00 ibuprofen 2016-0 No 1mg 800 mg 5-03 tablet 00:00: 00 Keflex 500 2016-0 No 2mg mg capsule 5-03 00:00: 00 ibuprofen 2016-0 No 1mg 800 mg 5-03 tablet 00:00: 00 Keflex 500 2016-0 No 2mg mg capsule 5-03 00:00: 00 ProAir HFA 2016-0 No 12mcg/a 90 2-04 ctuatio mcg/actuati 00:00: n on aerosol 00 inhaler Zithromax 2015-0 No 12mg Z-Scotty 250 2-04 mg tablet 00:00: 00 ProAir HFA 0 No 12mcg/a 90 2-04 ctuatio mcg/actuati 00:00: n on aerosol 00 inhaler Zithromax No 12mg Z-Scotty 250 2-04 mg tablet 00:00: 00 ProAir HFA 0 No 12mcg/a 90 2-04 ctuatio mcg/actuati 00:00: n on aerosol 00 inhaler Zithromax No 12mg Z-Scotty 250 2-04 mg tablet 00:00: 00 ProAir HFA No 12mcg/a 90 2-04 ctuatio mcg/actuati 00:00: n on aerosol 00 inhaler Zithromax No 12mg Z-Scotty 250 2-04 mg tablet 00:00: 00 No known 2014-08 No Univers medications 0-30 ity of 11:14: [address] No known 2014-08 No Univers medications 0-30 ity of 11:14: [address] No known No [facility] Univers medications it of [facility] No known No Univers medications [facility] Immunizations Ordered Filled Immunization Date Status Comments [facility] e Immunization Name Name [facility] 2012-11-03 Completed University 00:00:00 [facility] 2012-11-03 Completed [facility] 00:00:00 [facility] TD 2012-11-03 Completed University of 00:00:00 [facility] TDAP 2012-11-03 Completed University 00:00:00 [facility] 2012-11-03 Completed [facility] 00:00:00 [facility] Vital Signs Vital Name Observation Time Observation Value Comments Source Systolic blood 2021-01-12 20:30:00 111 mm[Hg] Univer sity of pressure [facility] Diastolic blood 2021-01-12 20:30:00 76 mm[Hg] Unive rsity of pressure [facility] Heart rate 2021-01-12 20:30:00 88 /min Universi ty of [facility] Respiratory rate 2021-01-12 20:30:00 15 /min Univ ersity [facility] Oxygen saturation in 2021-01-12 20:30:00 100 /min [facility] Arterial blood by [facility] Pulse oximetry Branch Body temperature 2021-01-12 20:05:57 37.44 [place] [facility] Body height 2021-01-12 19:14:00 152.4 cm [facility] Body weight 2021-01-12 19:14:00 69.4 kg [facility] BMI 2021-01-12 19:14:00 29.88 kg/m2 [facility] BP Systolic 2022-07-03 14:00:00 121 mm[Hg] BP Diastolic 2022-07-03 14:00:00 80 mm[Hg] Weight Measured 2022-07-03 14:00:00 162.00 pounds Height Measured 2022-07-03 14:00:00 58.50 inches Body Temperature 2022-07-03 14:00:00 98.20 degrees Heart Rate 2022-07-03 14:00:00 87.00 /min Respiratory Rate 2022-07-03 14:00:00 18.00 /min BP Systolic 2022-06-24 15:14:00 115 mm[Hg] BP Diastolic 2022-06-24 15:14:00 79 mm[Hg] Weight Measured 2022-06-24 15:14:00 161.40 pounds Height Measured 2022-06-24 15:14:00 58.50 inches Body Temperature 2022-06-24 15:14:00 98.30 degrees Heart Rate 2022-06-24 15:14:00 85.00 /min Respiratory Rate 2022-06-24 15:14:00 18.00 /min BP Systolic 2022-04-29 16:20:00 123 mm[Hg] BP Diastolic 2022-04-29 16:20:00 85 mm[Hg] Weight Measured 2022-04-29 16:20:00 159.60 pounds Height Measured 2022-04-29 16:20:00 58.50 inches Body Temperature 2022-04-29 16:20:00 98.30 degrees Heart Rate 2022-04-29 16:20:00 104.00 /min Respiratory Rate 2022-04-29 16:20:00 18.00 /min BP Systolic 2022-04-24 08:57:00 118 mm[Hg] BP Diastolic 2022-04-24 08:57:00 78 mm[Hg] Weight Measured 2022-04-24 08:57:00 161.00 pounds Height Measured 2022-04-24 08:57:00 58.50 inches Body Temperature 2022-04-24 08:57:00 98.30 degrees Heart Rate 2022-04-24 08:57:00 84.00 /min Respiratory Rate 2022-04-24 08:57:00 18.00 /min BP Systolic 2022-02-07 10:15:00 103 mm[Hg] BP Diastolic 2022-02-07 10:15:00 72 mm[Hg] Weight Measured 2022-02-07 10:15:00 155.00 pounds Height Measured 2022-02-07 10:15:00 58.50 inches Body Temperature 2022-02-07 10:15:00 98.40 degrees Heart Rate 2022-02-07 10:15:00 85.00 /min Respiratory Rate 2022-02-07 10:15:00 BP Systolic 2021-11-15 09:42:00 112 mm[Hg] BP Diastolic 2021-11-15 09:42:00 74 mm[Hg] Weight Measured 2021-11-15 09:42:00 148.80 pounds Height Measured 2021-11-15 09:42:00 58.50 inches Body Temperature 2021-11-15 09:42:00 98.30 degrees Heart Rate 2021-11-15 09:42:00 84.00 /min Respiratory Rate 2021-11-15 09:42:00 BP Systolic 2021-10-02 09:39:00 122 mm[Hg] BP Diastolic 2021-10-02 09:39:00 81 mm[Hg] Weight Measured 2021-10-02 09:39:00 144.80 pounds Height Measured 2021-10-02 09:39:00 58.50 inches Body Temperature 2021-10-02 09:39:00 98.10 degrees Heart Rate 2021-10-02 09:39:00 84.00 /min Respiratory Rate 2021-10-02 09:39:00 BP Systolic 2020-04-06 11:08:00 113 mm[Hg] BP Diastolic 2020-04-06 11:08:00 79 mm[Hg] Weight Measured 2020-04-06 11:08:00 150.00 pounds Height Measured 2020-04-06 11:08:00 58.50 inches Body Temperature 2020-04-06 11:08:00 98.50 degrees Heart Rate 2020-04-06 11:08:00 73.00 /min Respiratory Rate 2020-04-06 11:08:00 BP Systolic 2020-03-30 09:53:00 113 mm[Hg] BP Diastolic 2020-03-30 09:53:00 75 mm[Hg] Weight Measured 2020-03-30 09:53:00 151.00 pounds Height Measured 2020-03-30 09:53:00 58.50 inches Body Temperature 2020-03-30 09:53:00 98.90 degrees Heart Rate 2020-03-30 09:53:00 76.00 /min Respiratory Rate 2020-03-30 09:53:00 BP Systolic 2020-01-13 10:24:00 117 mm[Hg] BP Diastolic 2020-01-13 10:24:00 79 mm[Hg] Weight Measured 2020-01-13 10:24:00 153.20 pounds Height Measured 2020-01-13 10:24:00 58.50 inches Body Temperature 2020-01-13 10:24:00 98.20 degrees Heart Rate 2020-01-13 10:24:00 82.00 /min Respiratory Rate 2020-01-13 10:24:00 BP Systolic 2019-10-23 12:18:00 117 mm[Hg] BP Diastolic 2019-10-23 12:18:00 72 mm[Hg] Weight Measured 2019-10-23 12:18:00 154.00 pounds Height Measured 2019-10-23 12:18:00 58.50 inches Body Temperature 2019-10-23 12:18:00 Heart Rate 2019-10-23 12:18:00 Respiratory Rate 2019-10-23 12:18:00 BP Systolic 2019-05-20 10:50:00 118 mm[Hg] BP Diastolic 2019-05-20 10:50:00 75 mm[Hg] Weight Measured 2019-05-20 10:50:00 154.60 pounds Height Measured 2019-05-20 10:50:00 58.50 inches Body Temperature 2019-05-20 10:50:00 98.30 degrees Heart Rate 2019-05-20 10:50:00 76.00 /min Respiratory Rate 2019-05-20 10:50:00 16.00 /min BP Systolic 2019-02-11 09:11:00 120 mm[Hg] BP Diastolic 2019-02-11 09:11:00 73 mm[Hg] Weight Measured 2019-02-11 09:11:00 142.60 pounds Height Measured 2019-02-11 09:11:00 58.50 inches Body Temperature 2019-02-11 09:11:00 98.60 degrees Heart Rate 2019-02-11 09:11:00 80.00 /min Respiratory Rate 2019-02-11 09:11:00 16.00 /min Procedures Procedure Date / Time Performing Clinician Source Performed US BREAST RIGHT LIMITED 2022-03-04 14:14:42 [facility] MAMMO BREAST DIAGNOSTIC 2022-03-04 14:04:13 [facility] TOMOSYNTHESIS BILATERAL EXTERNAL PROVIDER 2021-12-04 05:01:00 Doctor Unassigned, [facility] Name [facility] [place] POCT TEST 2021-01-12 19:51:00 Kali Gupta [facility] TROPONIN I 2021-01-12 19:48:00 Kali Gupta [facility] BASIC METABOLIC PANEL 2021-01-12 19:48:00 Kali Gupta [facility] (NA, K, CL, CO2, Medical Branch GLUCOSE, BUN, CREATININE, CA) URINE DRUG (IMMUNOASSAY) 2021-01-12 19:48:00 Kali Gupta [facility] COMPREHENSIVE DRUG Medical [facility] SCREEN CBC WITH DIFF 2021-01-12 19:48:00 Kali Gupta [facility] URINALYSIS 2021-01-12 19:48:00 Kali Gupta [facility] NOTICE OF PRIVACY 2021-01-12 19:07:43 Doctor Unassigned, No [facility]ACTICES Name Medical Branch CONSENT/REFUSAL FOR 2021-01-12 19:07:05 Doctor Unassigned, No [facility]AT[facility] Name [facility] US ABDOMEN COMPLETE 2020-04-23 21:01:25 Ariana Em [facility] ASSIGNMENT OF BENEFITS 2020-04-23 20:14:53 Doctor Unassigned, No [facility] Plan of Care Planned Activity Planned Date Details Comments Source Future Scheduled 2022-09-29 COVID-19 VACCINE (#1) [facility] Test 13:26:51 [code = COVID-19 VACCINE (#1)] Future Scheduled 2022-09-29 [facility] 13:26:51 (procedure) [code = 390878476] Future Scheduled 2022-09-29 Screening for [facility] Test 13:26:51 malignant neoplasm of cervix (procedure) [code = 206577822] Future Scheduled 2022-09-29 INFLUENZA VACCINE [facility] Test 13:26:51 [code = INFLUENZA VACCINE] Future Scheduled 2022-09-29 [facility] 13:26:51 [code = COLONOSCOPY SCREENING] Future Scheduled 2022-09-29 BREAST CANCER [facility] Test 13:26:51 SCREENING [code = BREAST CANCER SCREENING] Future Scheduled 2022-07-28 COVID-19 VACCINE (#1) [facility] Test 11:30:14 [code = COVID-19 VACCINE (#1)] Future Scheduled 2022-07-28 Hepatitis C screening [facility] Test 11:30:14 (procedure) [code = 688413221] Future Scheduled 2022-07-28 INFLUENZA VACCINE [facility] Test 11:30:14 [code = INFLUENZA VACCINE] Future Scheduled 2022-07-28 [facility]COPY [facility]CREENING [facility] Test 11:30:14 [code = COLONOSCOPY SCREENING] Future Scheduled 2022-07-28 BREAST CANCER [facility] Test 11:30:14 SCREENING [code = BREAST CANCER SCREENING] Future Scheduled 2022-07-28 COVID-19 VACCINE (#1) [facility] Test 11:30:14 [code = COVID-19 VACCINE (#1)] Future Scheduled 2022-07-28 [facility] 11:30:14 (procedure) [code = 467741285] Future Scheduled 2022-07-28 INFLUENZA VACCINE [facility] Test 11:30:14 [code = INFLUENZA VACCINE] Future Scheduled 2022-07-28 [facility]COPY [facility]CREENING [facility] Test 11:30:14 [code = COLONOSCOPY SCREENING] Future Scheduled 2022-07-28 BREAST CANCER [facility] Test 11:30:14 SCREENING [code = BREAST CANCER SCREENING] Future Scheduled 2022-06-24 HEPATITIS B VACCINES [facility] Test 15:03:47 (1 of 3 - 3-dose series) [code = HEPATITIS B VACCINES (1 of 3 - 3-dose series)] Future Scheduled 2022-06-24 COVID-19 VACCINE (#1) [facility] Test 15:03:47 [code = COVID-19 VACCINE (#1)] Future Scheduled 2022-06-24 Hepatitis C screening [facility] Test 15:03:47 (procedure) [code = 930553509] Future Scheduled 2022-06-24 Screening for [facility] Test 15:03:47 malignant neoplasm of cervix (procedure) [code = 759340526] Future Scheduled 2022-06-24 INFLUENZA VACCINE [facility] Test 15:03:47 [code = INFLUENZA VACCINE] Future Scheduled 2022-06-24 COLONOSCOPY SCREENING [facility] Test 15:03:47 [code = COLONOSCOPY SCREENING] Future Scheduled 2022-06-24 BREAST CANCER [facility] Test 15:03:47 SCREENING [code = BREAST CANCER SCREENING] Future Scheduled 2022-06-24 HEPATITIS B VACCINES Met [facility] Test 15:03:47 (1 of 3 - 3-dose series) [code = HEPATITIS B VACCINES (1 of 3 - 3-dose series)] Future Scheduled 2022-06-24 COVID-19 VACCINE (#1) [facility] Test 15:03:47 [code = COVID-19 VACCINE (#1)] Future Scheduled 2022-06-24 Hepatitis C screening [facility] Test 15:03:47 (procedure) [code = 168337768] Future Scheduled 2022-06-24 Screening for [facility] Test 15:03:47 malignant neoplasm of cervix (procedure) [code = 903357707] Future Scheduled 2022-06-24 INFLUENZA VACCINE [facility] Test 15:03:47 [code = INFLUENZA VACCINE] Future Scheduled 2022-06-24 COLONOSCOPY SCREENING [facility] Test 15:03:47 [code = COLONOSCOPY SCREENING] Future Scheduled 2022-06-24 BREAST CANCER [facility] Test 15:03:47 SCREENING [code = BREAST CANCER SCREENING] Future Scheduled 2022-04-18 HEPATITIS B VACCINES Met [facility] Test 10:34:34 (1 of 3 - 3-dose series) [code = HEPATITIS B VACCINES (1 of 3 - 3-dose series)] Future Scheduled 2022-04-18 COVID-19 VACCINE (#1) [facility] Test 10:34:34 [code = COVID-19 VACCINE (#1)] Future Scheduled 2022-04-18 Hepatitis C screening [facility] Test 10:34:34 (procedure) [code = 301311743] Future Scheduled 2022-04-18 Screening for [facility] Test 10:34:34 malignant neoplasm of cervix (procedure) [code = 031959054] Future Scheduled 2022-04-18 INFLUENZA VACCINE [facility] Test 10:34:34 [code = INFLUENZA VACCINE] Future Scheduled 2022-04-18 COLONOSCOPY SCREENING [facility] Test 10:34:34 [code = COLONOSCOPY SCREENING] Future Scheduled 2022-04-18 BREAST CANCER [facility] Test 10:34:34 SCREENING [code = BREAST CANCER SCREENING] Future Scheduled 2022-04-18 HEPATITIS B VACCINES Met [facility] Test 10:34:34 (1 of 3 - 3-dose series) [code = HEPATITIS B VACCINES (1 of 3 - 3-dose series)] Future Scheduled 2022-04-18 COVID-19 VACCINE (#1) [facility] Test 10:34:34 [code = COVID-19 VACCINE (#1)] Future Scheduled 2022-04-18 Hepatitis C screening [facility] Test 10:34:34 (procedure) [code = 911262061] Future Scheduled 2022-04-18 Screening for [facility] Test 10:34:34 malignant neoplasm of cervix (procedure) [code = 309467127] Future Scheduled 2022-04-18 INFLUENZA VACCINE [facility] Test 10:34:34 [code = INFLUENZA VACCINE] Future Scheduled 2022-04-18 COLONOSCOPY SCREENING [facility] Test 10:34:34 [code = COLONOSCOPY SCREENING] Future Scheduled 2022-04-18 BREAST CANCER [facility] Test 10:34:34 SCREENING [code = BREAST CANCER SCREENING] Future Scheduled 2022-03-14 COVID-19 VACCINE (#1) [facility] Test 02:38:03 [code = COVID-19 VACCINE (#1)] Future Scheduled 2022-03-14 Hepatitis C screening [facility] Test 02:38:03 (procedure) [code = 903083410] Future Scheduled 2022-03-14 Screening for [facility] Test 02:38:03 malignant neoplasm of cervix (procedure) [code = 362387552] Future Scheduled 2022-03-14 INFLUENZA VACCINE [facility] Test 02:38:03 [code = INFLUENZA VACCINE] Goal Plan of Care Note [code = 22432-2] Goal Plan of Care Note [code = 47678-3] Goal Plan of Care Note [code = 61862-0] Goal Plan of Care Note [code = 54749-5] Goal Plan of Care Note [code = 84209-2] Goal Plan of Care Note [code = 91508-3] Goal Plan of Care Note [code = 34447-4] Goal Plan of Care Note [code = 24243-1] Goal Plan of Care Note [code = 70153-2] Goal Plan of Care Note [code = 75790-8] Goal Plan of Care Note [code = 33682-6] Goal Plan of Care Note [code = 23578-2] Goal Plan of Care Note [code = 71139-3] Goal Plan of Care Note [code = 40369-1] Goal Plan of Care Note [code = 74601-6] Goal Plan of Care Note [code = 93913-1] Goal Plan of Care Note [code = 88004-8] Goal Plan of Care Note [code = 53572-8] Goal Plan of Care Note [code = 62138-1] Goal Plan of Care Note [code = 39448-1] Goal Plan of Care Note [code = 57768-3] Goal Plan of Care Note [code = 36914-9] Goal Plan of Care Note [code = 57904-3] Goal Plan of Care Note [code = 24007-9] Goal Plan of Care Note [code = 04697-3] Goal Plan of Care Note [code = 65304-4] Goal Plan of Care Note [code = 92502-9] Goal Plan of Care Note [code = 50383-3] Goal Plan of Care Note [code = 75296-6] Goal Plan of Care Note [code = 32379-9] Goal Plan of Care Note [code = 56463-1] Goal Plan of Care Note [code = 28441-5] Goal Plan of Care Note [code = 00413-1] Goal Plan of Care Note [code = 08375-6] Goal Plan of Care Note [code = 67976-5] Goal Plan of Care Note [code = 99030-8] Goal Plan of Care Note [code = 06199-9] Goal Plan of Care Note [code = 74959-0] Goal Plan of Care Note [code = 01751-4] Goal Plan of Care Note [code = 09704-6] Goal Plan of Care Note [code = 17368-7] Goal Plan of Care Note [code = 00336-4] Goal Plan of Care Note [code = 98914-0] Goal Plan of Care Note [code = 98905-9] Goal Plan of Care Note [code = 95417-7] Goal Plan of Care Note [code = 12700-8] Goal Plan of Care Note [code = 90229-4] Goal Plan of Care Note [code = 40509-2] Goal Plan of Care Note [code = 89935-7] Goal Plan of Care Note [code = 46894-9] Goal Plan of Care Note [code = 55808-2] Goal Plan of Care Note [code = 31415-1] Goal Plan of Care Note [code = 01957-7] Goal Plan of Care Note [code = 66772-5] Goal Plan of Care Note [code = 13952-0] Goal Plan of Care Note [code = 62996-0] Goal Plan of Care Note [code = 91592-9] Goal Plan of Care Note [code = 55569-4] Goal Plan of Care Note [code = 50485-6] Goal Plan of Care Note [code = 08489-3] Goal Plan of Care Note [code = 50470-8] Goal Plan of Care Note [code = 74918-5] Goal Plan of Care Note [code = 18499-6] Goal Plan of Care Note [code = 90601-0] Goal Plan of Care Note [code = 75993-5] Goal Plan of Care Note [code = 75974-1] Goal Plan of Care Note [code = 31475-5] Goal Plan of Care Note [code = 88397-5] Goal Plan of Care Note [code = 19285-6] Goal Plan of Care Note [code = 50662-6] Goal Plan of Care Note [code = 28463-4] Goal Plan of Care Note [code = 25453-1] Goal Plan of Care Note [code = 37252-3] Goal Plan of Care Note [code = 26487-4] Goal Plan of Care Note [code = 43018-7] Goal Plan of Care Note [code = 99766-3] Goal Plan of Care Note [code = 31326-9] Goal Plan of Care Note [code = 34460-5] Goal Plan of Care Note [code = 19738-4] Goal Plan of Care Note [code = 45995-8] Goal Plan of Care Note [code = 29879-1] Goal Plan of Care Note [code = 18641-0] Goal Plan of Care Note [code = 96368-9] Goal Plan of Care Note [code = 13588-9] Goal Plan of Care Note [code = 78886-0] Goal Plan of Care Note [code = 82697-2] Goal Plan of Care Note [code = 59466-7] Goal Plan of Care Note [code = 76823-5] Goal Plan of Care Note [code = 98153-2] Goal Plan of Care Note [code = 27273-7] Goal Plan of Care Note [code = 07185-8] Goal Plan of Care Note [code = 66870-7] Goal Plan of Care Note [code = 85445-0] Goal Plan of Care Note [code = 30013-3] Goal Plan of Care Note [code = 95834-7] Goal Plan of Care Note [code = 58588-9] Goal Plan of Care Note [code = 34166-8] Goal Plan of Care Note [code = 64731-0] Goal Plan of Care Note [code = 44179-6] Goal Plan of Care Note [code = 83964-1] Goal Plan of Care Note [code = 70703-3] Goal Plan of Care Note [code = 06262-4] Goal Plan of Care Note [code = 88988-6] Goal Plan of Care Note [code = 55248-9] Goal Plan of Care Note [code = 52450-1] Goal Plan of Care Note [code = 28445-4] Goal Plan of Care Note [code = 27600-5] Goal Plan of Care Note [code = 95172-1] Goal Plan of Care Note [code = 52654-4] Goal Plan of Care Note [code = 07024-5] Goal Plan of Care Note [code = 80931-3] Goal Plan of Care Note [code = 27769-6] Goal Plan of Care Note [code = 72732-4] Goal Plan of Care Note [code = 70318-2] Goal Plan of Care Note [code = 65201-3] Goal Plan of Care Note [code = 32872-7] Goal Plan of Care Note [code = 32693-9] Goal Plan of Care Note [code = 73424-1] Goal Plan of Care Note [code = 98129-9] Goal Plan of Care Note [code = 32048-8] Goal Plan of Care Note [code = 39579-5] Goal Plan of Care Note [code = 67971-1] Goal Plan of Care Note [code = 00867-9] Goal Plan of Care Note [code = 90380-3] Goal Plan of Care Note [code = 22013-5] Goal Plan of Care Note [code = 35190-5] Goal Plan of Care Note [code = 48751-7] Goal Plan of Care Note [code = 54804-7] Goal Plan of Care Note [code = 15503-3] Goal Plan of Care Note [code = 23675-7] Goal Plan of Care Note [code = 32256-7] Goal Plan of Care Note [code = 14333-0] Goal Plan of Care Note [code = 39551-6] Goal Plan of Care Note [code = 14332-6] Goal Plan of Care Note [code = 55958-7] Goal Plan of Care Note [code = 96077-6] Goal Plan of Care Note [code = 57677-5] Goal Plan of Care Note [code = 12539-1] Goal Plan of Care Note [code = 64069-2] Goal Plan of Care Note [code = 59600-1] Goal Plan of Care Note [code = 07967-7] Goal Plan of Care Note [code = 02830-0] Goal Plan of Care Note [code = 50827-0] Goal Plan of Care Note [code = 52353-8] Goal Plan of Care Note [code = 43932-5] Goal Plan of Care Note [code = 43237-5] Goal Plan of Care Note [code = 48573-6] Goal Plan of Care Note [code = 29312-8] Goal Plan of Care Note [code = 67709-6] Goal Plan of Care Note [code = 47233-6] Goal Plan of Care Note [code = 69778-5] Goal Plan of Care Note [code = 04255-0] Goal Plan of Care Note [code = 32346-5] Goal Plan of Care Note [code = 78582-7] Goal Plan of Care Note [code = 30944-8] Goal Plan of Care Note [code = 10742-8] Goal Plan of Care Note [code = 29809-6] Goal Plan of Care Note [code = 30364-0] Goal Plan of Care Note [code = 56718-7] Goal Plan of Care Note [code = 69483-7] Goal Plan of Care Note [code = 84334-3] Goal Plan of Care Note [code = 44845-5] Goal Plan of Care Note [code = 91475-7] Goal Plan of Care Note [code = 33976-7] Goal Plan of Care Note [code = 70781-2] Goal Plan of Care Note [code = 59604-2] Goal Plan of Care Note [code = 67941-8] Goal Plan of Care Note [code = 21610-6] Goal Plan of Care Note [code = 87902-9] Goal Plan of Care Note [code = 54846-7] Goal Plan of Care Note [code = 56493-6] Goal Plan of Care Note [code = 22034-8] Goal Plan of Care Note [code = 62188-4] Goal Plan of Care Note [code = 03617-5] Goal Plan of Care Note [code = 67328-4] Goal Plan of Care Note [code = 95561-2] Goal Plan of Care Note [code = 10652-7] Goal Plan of Care Note [code = 65440-6] Goal Plan of Care Note [code = 66020-7] Goal Plan of Care Note [code = 35722-3] Goal Plan of Care Note [code = 10640-7] Goal Plan of Care Note [code = 26322-9] Goal Plan of Care Note [code = 83178-8] Goal Plan of Care Note [code = 31407-9] Goal Plan of Care Note [code = 55862-5] Goal Plan of Care Note [code = 58035-1] Goal Plan of Care Note [code = 03661-1] Goal Plan of Care Note [code = 65468-1] Goal Plan of Care Note [code = 41540-7] Goal Plan of Care Note [code = 07293-8] Goal Plan of Care Note [code = 93905-5] Goal Plan of Care Note [code = 43330-8] Goal Plan of Care Note [code = 91952-0] Goal Plan of Care Note [code = 20072-0] Goal Plan of Care Note [code = 90046-2] Goal Plan of Care Note [code = 00399-3] Goal Plan of Care Note [code = 03797-2] Goal Plan of Care Note [code = 65224-2] Goal Plan of Care Note [code = 68794-4] Goal Plan of Care Note [code = 24110-4] Encounters Start End Encounter Admission Attending Care Care Encounter Source Date/Time Date/Time Type Type Clinicians Facility Department ID 2021-06-15 Emergency [facility] [id number] Univers 22:10:58 it of [facility] 2022-07-30 2022-07-30 Outpatient SFA SFA 14487-1 022 Win 15:14:17 15:14:17 1215 F Janusz 2022-07-03 2022-07-03 Outpatient SFA SFA 61878-8 022 Win 13:47:27 13:47:27 1118 F Janusz 2022-07-03 2022-07-03 Outpatient 6l958l58- [id number] 2a 290g90-j 00:00:00 00:00:00 Visit cebb-4dc4 ebb-4dc4-a -b6dk-730 4ef-387e9b r1lf52939 s36706 2022-06-24 2022-06-24 Outpatient SFA SFA 93424-5 022 Win 15:03:38 15:03:38 1109 F Janusz 2022-06-24 2022-06-24 Outpatient docw6014- [id number] bf xk9700-6 00:00:00 00:00:00 Visit 8o7r-619k s4g-318s-9 -9575-36b 575-56l300 900b7d4v3 c9e9f8 2022-04-29 2022-04-29 Outpatient 66mwv1q6- [id number] 25 nsy6s1-8 00:00:00 00:00:00 Visit 0959-48a6 959-48a6-b -f697-206 558-665abf ihcgkfc81 ffab76 2022-04-24 2022-04-24 Outpatient 41307k6d- [id number] 60 852f3o-4 00:00:00 00:00:00 Visit 93b5-67e2 1q0-93g9-y -rn41-t0n j52-e7o20g 65c53a48q 46b49c 2022-03-04 2022-03-04 [facility], 1.2.840.1 [id number] [id number] Methodi 08:30:00 23:59:00 Encounter Stacie Ann 55251.1.[address] 3.430.2.7 Hospit a .3.373952 l .8 2022-03-04 2022-03-04 [facility], 1.2.840.1 [id number] [id number] Methodi 08:30:00 23:59:00 Encounter Stacie Ginny 53996.1.[address] 3.430.2.7 Hospit a .3.483278 l .8 2022-03-04 2022-03-04 [facility], 1.2.840.1 [id number] Methodi 08:00:00 08:29:00 Encounter Stacie Ginny 79368.1.[address] 3.430.2.7 Hospit a .3.775470 l .8 2022-03-04 2022-03-04 [facility], 1.2.840.1 [id number] [id number] Methodi 08:00:00 08:29:00 Encounter Stacie Gross 12751.1.[address] 3.430.2.7 Hospit a .3.029873 l .8 2022-03-04 2022-03-04 [facility] Cornelio, 1.2.840.1 [id number] Methodi 00:00:00 00:00:00 Ciara A 61041.1.1 333 s t 3.430.2.7 Hospit a .3.043478 l .8 2022-03-04 2022-03-04 Travel 1.2.840.1 1.2.473.010 8179 [id number] Methodi 00:00:00 00:00:[address] 3.430.2.7 0.2.7.3.698 Ho spita .3.105515 084.8 l .8 2022-03-04 2022-03-04 Telephone Grimes, 1.2.840.1 2099 [id number] Methodi 00:00:00 00:00:00 Ciara A 13528.1.1 333 s t 3.430.2.7 Hospit a .3.596642 l .8 2022-03-04 2022-03-04 Travel 1.2.840.1 1.2.901.185 9824 889095 Methodi 00:00:00 00:00:[address] 3.430.2.7 0.2.7.3.698 Ho spita .3.301048 084.8 l .8 2022-02-18 2022-02-18 Orders Cornelio, 1.2.840.1 [id number] [id number] 0349 Methodi 00:00:00 00:00:00 Only Ciara A 34944.1.1 831 s t 3.430.2.7 Hospit a .3.887449 l .8 2022-02-18 2022-02-18 Orders Grimes, 1.2.840.1 [id number] 4818 Methodi 00:00:00 00:00:00 Only Ciara A 91299.1.1 831 s t 3.430.2.7 Hospit a .3.745827 l .8 2022-01-29 2022-01-29 Orders Cornelio, 1.2.840.1 [id number] 8317 Methodi 00:00:00 00:00:00 Only Ciara Jacome 69577.1.1 791 s t 3.430.2.7 Hospit a .3.869479 l .8 2022-01-29 2022-01-29 Orders Cornelio 1.2.840.1 [id number] 9743 Methodi 00:00:00 00:00:00 Only Ciara Jacome 38354.1.1 791 s t 3.430.2.7 Hospit a .3.130272 l .8 2021-12-04 2021-12-04 Orders Doctor GARCIA 1.2.840.114 [id number] 25 00:00:00 00:00:00 Only Unassigned, GABRIELLA 350.1.13.10 ity of [facility] 4.2.7.2.686 Apolinar as [phone] [facility] 009 Branch 2021-11-20 2021-11-20 Letter RADHA Lu 1.2.840.114 925 [id number] Univers 00:00:00 00:00:00 (Out) Lydia QUIROZ 350.1.13.10 i ty [address]686 Apolinar as [phone] [facility] 043 Branch 2021-01-12 2021-01-12 [facility] 1.2.840.114 846 [id number] Univers 14:17:00 16:10:00 Kali Mack 350.1.13.10 i ty of [place] 4.2.7.2.686 [facility] [id number] [facility] 084 Branch 2020-04-23 2020-04-23 [facility] 1.2.840.114 7 [id number] Univers 15:00:00 23:59:00 Alexi Mack 350.1.13.10 ity of [place] [address] [place] [address] [id number] [facility] 806 Branch 2020-04-23 2020-04-23 [facility] 492 [id number] Univers 00:00:00 00:00:00 ity of [facility] 2020-04-23 2020-04-23 Orders Doctor RADHA 1.2.840.114 [id number] 06 00:00:00 00:00:00 Only Unassigned, GABRIELLA 350.1.13.10 ity of [facility] 4.2.7.2.686 Apolinar as [phone] [address] Results Test Description Test Time Test Comments Results Result Comments Source CBC W/AUTO DIFF WITH PLATELETS 2022-05-01 08:22:53 Test Item Value Reference Range Interpretation Comme nts WBC (test code = 1001) 11.2 K/UL 3.5-11.0 H RBC (test code = 1002) 4.55 M/UL 3.80-5.40 HEMOGLOBIN (test code = 14.1 G/DL 11.5-15.5 1003) HEMATOCRIT (test code = 40.9 % 34.0-45.0 1004) MCV (test code = 1005) 89.9 fL 80.0-99.0 MCH (test code = 1006) 31.0 PG 25.0-33.0 MCHC (test code = 1007) 34.5 G/DL 31.0-36.0 RDW (test code = 1038) 12.5 % 11.5-15.0 NEUTROPHILS (test code = 64.1 % 1008) LYMPHOCYTES (test code = 23.4 % 1010) MONOCYTES (test code = 1011) 10.3 % EOSINOPHILS (test code = 1.4 % 1012) BASOPHILS (test code = 1013) 0.4 % IMMATURE GRANULOCYTES (test 0.4 % code = 1036) NUCLEATED RBCS (test code = 0.0 /100 WBC'S See_Comment [Automated message] The 1065) system which ge nerated this result transmit ines reference range: 0.0. The reference range was not u sed to interpret this result as normal/abnormal . PLATELET COUNT (test code = 345 K/UL 509-683 9920) ABSOLUTE NEUTROPHILS (test 7.14 K/UL 1.50-7.50 code = 1066) ABSOLUTE LYMPHOCYTES (test 2.61 K/UL 1.00-4.00 code = 1067) ABSOLUTE MONOCYTES (test 1.15 K/UL 0.20-1.00 H code = 1068) ABSOLUTE EOSINOPHILS (test 0.16 K/UL 0.00-0.50 code = 1040) ABSOLUTE BASOPHILS (test 0.05 K/UL 0.00-0.20 code = 1069) ABS IMMATURE GRANULOCYTES 0.04 K/UL 0.00-0.10 (test code = 1020) ABS NUCLEATED RBCS (test 0.00 K/UL 0.00-0.11 UN LESS OTHERWISE INDICATED, code = 43813) ALL TESTING PE RFORMED ATCLINICAL PATH [facility], [facility]. [address] [address] LABORAT[address] DIRE CTOR: TITO CHENEY M.D. CLIA NUMBER [id number] [facility] [place]. [id number] CBC W/AUTO [id number] 00:00:00 Test Item Value Reference Range Interpretation Comments WBC (test code = 1001) 11.2 K/UL RBC (test code = 1002) 4.55 M/UL HEMOGLOBIN (test code = 1003) 14.1 G/DL HEMATOCRIT (test code = 1004) 40.9 % MCV (test code = 1005) 89.9 fL MCH (test code = 1006) 31.0 PG MCHC (test code = 1007) 34.5 G/DL RDW (test code = 1038) 12.5 % NEUTROPHILS (test code = 1008) 64.1 % LYMPHOCYTES (test code = 1010) 23.4 % MONOCYTES (test code = 1011) 10.3 % EOSINOPHILS (test code = 1012) 1.4 % BASOPHILS (test code = 1013) 0.4 % IMMATURE GRANULOCYTES (test 0.4 % code = 1036) NUCLEATED RBCS (test code = 0.0 /100WBC'S 1065) PLATELET COUNT (test code = 345 K/UL 1015) ABSOLUTE NEUTROPHILS (test code 7.14 K/UL = 1066) ABSOLUTE LYMPHOCYTES (test code 2.61 K/UL = 1067) ABSOLUTE MONOCYTES (test code = 1.15 K/UL 1068) ABSOLUTE EOSINOPHILS (test code 0.16 K/UL = 1040) ABSOLUTE BASOPHILS (test code = 0.05 K/UL 1069) ABS IMMATURE GRANULOCYTES (test 0.04 K/UL code = 1020) ABS NUCLEATED RBCS (test code = 0.00 K/UL 73329) CBC W/AUTO [id number] 00:00:00 Test Item Value Reference Range Interpretation Comments WBC (test code = 1001) 11.2 K/UL RBC (test code = 1002) 4.55 M/UL HEMOGLOBIN (test code = 1003) 14.1 G/DL HEMATOCRIT (test code = 1004) 40.9 % MCV (test code = 1005) 89.9 fL MCH (test code = 1006) 31.0 PG MCHC (test code = 1007) 34.5 G/DL RDW (test code = 1038) 12.5 % NEUTROPHILS (test code = 1008) 64.1 % LYMPHOCYTES (test code = 1010) 23.4 % MONOCYTES (test code = 1011) 10.3 % EOSINOPHILS (test code = 1012) 1.4 % BASOPHILS (test code = 1013) 0.4 % IMMATURE GRANULOCYTES (test 0.4 % code = 1036) NUCLEATED RBCS (test code = 0.0 /100WBC'S 1065) PLATELET COUNT (test code = 345 K/UL 1015) ABSOLUTE NEUTROPHILS (test code 7.14 K/UL = 1066) ABSOLUTE LYMPHOCYTES (test code 2.61 K/UL = 1067) ABSOLUTE MONOCYTES (test code = 1.15 K/UL 1068) ABSOLUTE EOSINOPHILS (test code 0.16 K/UL = 1040) ABSOLUTE BASOPHILS (test code = 0.05 K/UL 1069) ABS IMMATURE GRANULOCYTES (test 0.04 K/UL code = 1020) ABS NUCLEATED RBCS (test code = 0.00 K/UL 86033) CBC W/AUTO [id number] 00:00:00 Test Item Value Reference Range Interpretation Comments WBC (test code = 1001) 11.2 K/UL RBC (test code = 1002) 4.55 M/UL HEMOGLOBIN (test code = 1003) 14.1 G/DL HEMATOCRIT (test code = 1004) 40.9 % MCV (test code = 1005) 89.9 fL MCH (test code = 1006) 31.0 PG MCHC (test code = 1007) 34.5 G/DL RDW (test code = 1038) 12.5 % NEUTROPHILS (test code = 1008) 64.1 % LYMPHOCYTES (test code = 1010) 23.4 % MONOCYTES (test code = 1011) 10.3 % EOSINOPHILS (test code = 1012) 1.4 % BASOPHILS (test code = 1013) 0.4 % IMMATURE GRANULOCYTES (test 0.4 % code = 1036) NUCLEATED RBCS (test code = 0.0 /100WBC'S 1065) PLATELET COUNT (test code = 345 K/UL 1015) ABSOLUTE NEUTROPHILS (test code 7.14 K/UL = 1066) ABSOLUTE LYMPHOCYTES (test code 2.61 K/UL = 1067) ABSOLUTE MONOCYTES (test code = 1.15 K/UL 1068) ABSOLUTE EOSINOPHILS (test code 0.16 K/UL = 1040) ABSOLUTE BASOPHILS (test code = 0.05 K/UL 1069) ABS IMMATURE GRANULOCYTES (test 0.04 K/UL code = 1020) ABS NUCLEATED RBCS (test code = 0.00 K/UL 51140) CBC W/AUTO [id number] 00:00:00 Test Item Value Reference Range Interpretation Comments WBC (test code = 1001) 11.2 K/UL RBC (test code = 1002) 4.55 M/UL HEMOGLOBIN (test code = 1003) 14.1 G/DL HEMATOCRIT (test code = 1004) 40.9 % MCV (test code = 1005) 89.9 fL MCH (test code = 1006) 31.0 PG MCHC (test code = 1007) 34.5 G/DL RDW (test code = 1038) 12.5 % NEUTROPHILS (test code = 1008) 64.1 % LYMPHOCYTES (test code = 1010) 23.4 % MONOCYTES (test code = 1011) 10.3 % EOSINOPHILS (test code = 1012) 1.4 % BASOPHILS (test code = 1013) 0.4 % IMMATURE GRANULOCYTES (test 0.4 % code = 1036) NUCLEATED RBCS (test code = 0.0 /100WBC'S 1065) PLATELET COUNT (test code = 345 K/UL 1015) ABSOLUTE NEUTROPHILS (test code 7.14 K/UL = 1066) ABSOLUTE LYMPHOCYTES (test code 2.61 K/UL = 1067) ABSOLUTE MONOCYTES (test code = 1.15 K/UL 1068) ABSOLUTE EOSINOPHILS (test code 0.16 K/UL = 1040) ABSOLUTE BASOPHILS (test code = 0.05 K/UL 1069) ABS IMMATURE GRANULOCYTES (test 0.04 K/UL code = 1020) ABS NUCLEATED RBCS (test code = 0.00 K/UL 68579) CBC W/AUTO [id number] 00:00:00 Test Item Value Reference Range Interpretation Comments WBC (test code = 1001) 11.2 K/UL RBC (test code = 1002) 4.55 M/UL HEMOGLOBIN (test code = 1003) 14.1 G/DL HEMATOCRIT (test code = 1004) 40.9 % MCV (test code = 1005) 89.9 fL MCH (test code = 1006) 31.0 PG MCHC (test code = 1007) 34.5 G/DL RDW (test code = 1038) 12.5 % NEUTROPHILS (test code = 1008) 64.1 % LYMPHOCYTES (test code = 1010) 23.4 % MONOCYTES (test code = 1011) 10.3 % EOSINOPHILS (test code = 1012) 1.4 % BASOPHILS (test code = 1013) 0.4 % IMMATURE GRANULOCYTES (test 0.4 % code = 1036) NUCLEATED RBCS (test code = 0.0 /100WBC'S 1065) PLATELET COUNT (test code = 345 K/UL 1015) ABSOLUTE NEUTROPHILS (test code 7.14 K/UL = 1066) ABSOLUTE LYMPHOCYTES (test code 2.61 K/UL = 1067) ABSOLUTE MONOCYTES (test code = 1.15 K/UL 1068) ABSOLUTE EOSINOPHILS (test code 0.16 K/UL = 1040) ABSOLUTE BASOPHILS (test code = 0.05 K/UL 1069) ABS IMMATURE GRANULOCYTES (test 0.04 K/UL code = 1020) ABS NUCLEATED RBCS (test code = 0.00 K/UL 22968) CBC W/AUTO [id number] 00:00:00 Test Item Value Reference Range Interpretation Comments WBC (test code = 1001) 11.2 K/UL RBC (test code = 1002) 4.55 M/UL HEMOGLOBIN (test code = 1003) 14.1 G/DL HEMATOCRIT (test code = 1004) 40.9 % MCV (test code = 1005) 89.9 fL MCH (test code = 1006) 31.0 PG MCHC (test code = 1007) 34.5 G/DL RDW (test code = 1038) 12.5 % NEUTROPHILS (test code = 1008) 64.1 % LYMPHOCYTES (test code = 1010) 23.4 % MONOCYTES (test code = 1011) 10.3 % EOSINOPHILS (test code = 1012) 1.4 % BASOPHILS (test code = 1013) 0.4 % IMMATURE GRANULOCYTES (test 0.4 % code = 1036) NUCLEATED RBCS (test code = 0.0 /100WBC'S 1065) PLATELET COUNT (test code = 345 K/UL 1015) ABSOLUTE NEUTROPHILS (test code 7.14 K/UL = 1066) ABSOLUTE LYMPHOCYTES (test code 2.61 K/UL = 1067) ABSOLUTE MONOCYTES (test code = 1.15 K/UL 1068) ABSOLUTE EOSINOPHILS (test code 0.16 K/UL = 1040) ABSOLUTE BASOPHILS (test code = 0.05 K/UL 1069) ABS IMMATURE GRANULOCYTES (test 0.04 K/UL code = 1020) ABS NUCLEATED RBCS (test code = 0.00 K/UL 86847) CBC W/AUTO [id number] 00:00:00 Test Item Value Reference Range Interpretation Comments WBC (test code = 1001) 11.2 K/UL RBC (test code = 1002) 4.55 M/UL HEMOGLOBIN (test code = 1003) 14.1 G/DL HEMATOCRIT (test code = 1004) 40.9 % MCV (test code = 1005) 89.9 fL MCH (test code = 1006) 31.0 PG MCHC (test code = 1007) 34.5 G/DL RDW (test code = 1038) 12.5 % NEUTROPHILS (test code = 1008) 64.1 % LYMPHOCYTES (test code = 1010) 23.4 % MONOCYTES (test code = 1011) 10.3 % EOSINOPHILS (test code = 1012) 1.4 % BASOPHILS (test code = 1013) 0.4 % IMMATURE GRANULOCYTES (test 0.4 % code = 1036) NUCLEATED RBCS (test code = 0.0 /100WBC'S 1065) PLATELET COUNT (test code = 345 K/UL 1015) ABSOLUTE NEUTROPHILS (test code 7.14 K/UL = 1066) ABSOLUTE LYMPHOCYTES (test code 2.61 K/UL = 1067) ABSOLUTE MONOCYTES (test code = 1.15 K/UL 1068) ABSOLUTE EOSINOPHILS (test code 0.16 K/UL = 1040) ABSOLUTE BASOPHILS (test code = 0.05 K/UL 1069) ABS IMMATURE GRANULOCYTES (test 0.04 K/UL code = 1020) ABS NUCLEATED RBCS (test code = 0.00 K/UL 73533) CBC W/AUTO [id number] 00:00:00 Test Item Value Reference Range Interpretation Comments WBC (test code = 1001) 11.2 K/UL RBC (test code = 1002) 4.55 M/UL HEMOGLOBIN (test code = 1003) 14.1 G/DL HEMATOCRIT (test code = 1004) 40.9 % MCV (test code = 1005) 89.9 fL MCH (test code = 1006) 31.0 PG MCHC (test code = 1007) 34.5 G/DL RDW (test code = 1038) 12.5 % NEUTROPHILS (test code = 1008) 64.1 % LYMPHOCYTES (test code = 1010) 23.4 % MONOCYTES (test code = 1011) 10.3 % EOSINOPHILS (test code = 1012) 1.4 % BASOPHILS (test code = 1013) 0.4 % IMMATURE GRANULOCYTES (test 0.4 % code = 1036) NUCLEATED RBCS (test code = 0.0 /100WBC'S 1065) PLATELET COUNT (test code = 345 K/UL 1015) ABSOLUTE NEUTROPHILS (test code 7.14 K/UL = 1066) ABSOLUTE LYMPHOCYTES (test code 2.61 K/UL = 1067) ABSOLUTE MONOCYTES (test code = 1.15 K/UL 1068) ABSOLUTE EOSINOPHILS (test code 0.16 K/UL = 1040) ABSOLUTE BASOPHILS (test code = 0.05 K/UL 1069) ABS IMMATURE GRANULOCYTES (test 0.04 K/UL code = 1020) ABS NUCLEATED RBCS (test code = 0.00 K/UL 13300) CBC W/AUTO [id number] 00:00:00 Test Item Value Reference Range Interpretation Comments WBC (test code = 1001) 11.2 K/UL RBC (test code = 1002) 4.55 M/UL HEMOGLOBIN (test code = 1003) 14.1 G/DL HEMATOCRIT (test code = 1004) 40.9 % MCV (test code = 1005) 89.9 fL MCH (test code = 1006) 31.0 PG MCHC (test code = 1007) 34.5 G/DL RDW (test code = 1038) 12.5 % NEUTROPHILS (test code = 1008) 64.1 % LYMPHOCYTES (test code = 1010) 23.4 % MONOCYTES (test code = 1011) 10.3 % EOSINOPHILS (test code = 1012) 1.4 % BASOPHILS (test code = 1013) 0.4 % IMMATURE GRANULOCYTES (test 0.4 % code = 1036) NUCLEATED RBCS (test code = 0.0 /100WBC'S 1065) PLATELET COUNT (test code = 345 K/UL 1015) ABSOLUTE NEUTROPHILS (test code 7.14 K/UL = 1066) ABSOLUTE LYMPHOCYTES (test code 2.61 K/UL = 1067) ABSOLUTE MONOCYTES (test code = 1.15 K/UL 1068) ABSOLUTE EOSINOPHILS (test code 0.16 K/UL = 1040) ABSOLUTE BASOPHILS (test code = 0.05 K/UL 1069) ABS IMMATURE GRANULOCYTES (test 0.04 K/UL code = 1020) ABS NUCLEATED RBCS (test code = 0.00 K/UL 37800) CT/NG, NAAT, [id number] 21:31:48 Test Item Value Reference Range Interpretation Comments GONORRHEA, NAAT NEGATIVE NEGATIVE IMPORTA NT NOTICE: SEE (test code = [place] [address]) [email or web address] Note: Assay methodology is nucleic acid amplification b y fashion marketer m ediated amplification ( TMA) utilizing the A ptima Combo 2 Assay. CHLAMYDIA, NAAT NEGATIVE NEGATIVE IMPORTA NT NOTICE: SEE (test code = [place] [address]) [email or web address] Note: Assay methodology is nucleic acid amplification b y fashion marketer m ediated amplification ( TMA) utilizing the A ptima Combo 2 Assay. PAP TEST, THINPREP, [id number] 16:53:35 Test Item Value Reference Range Interpretation Comments SOURCE: (test Cervical/Endo code = 8001) cervical SLIDES: (test 1 code = 8011) LMP: (test code = 09/23/2021 8021) SPECIMEN (NOTE) Satisfactory f or ADEQUACY: (test evaluation. Endocervical code = 20598) cells/transfor mation zone component not identified. INTERPRETATION: NILM/NO (test code = EPITH. --------- 14543) ABNORMALITY;S -------- EE BELOW NEGATIVE FO R INTRAEPITHELIAL LESION OR MALIGNANCY ( NILM) --------- --------- --------- - OTHER COMMENTS: (NOTE) Shift in radha ra (test code = suggestive of b acterial 8081) vaginosis. COAL SHOOTER: Toby (test code = POLO Atwood( 8101) CP) IAC LOCATION: (test (NOTE) Specimens pr ocessed and code = 07006) [facility] at [facility] [address] [place] [address], , CLIA: [id number] CPT: (test code = (NOTE) 52963 UNLE SS OTHERWISE 8140) INDICATED, COMP UTER [...] or consolidated pr ior Pap history is orlando moreau as applicable. HPV HIGH RISK WITH GENOTYPE, [id number] 16:49:43 Test Item Value Reference Range Interpretation Comments HPV HIGH RISK INTERP NEGATIVE NEGATIVE (test code = 71844) HPV 16 (test code = NEGATIVE 87884) HPV 18 (test code = NEGATIVE 85707) HPV, HR, OTHER NEGATIVE Testing meth odology is GENOTYPES (test code real-ti me PCR utilizing = 42864) hydrolysis prob es with the [employer] 4800 system. The vitaliy t individually de tects genotypes 16 an d 18, as well as the oth er 12 high risk types (31,33,35,39,45 ,51,52,56 ,58,59,66,68). The expected result is negative. A ne gative result does not rule out the presence of HPV not included in the genotype set, a low leve l of infection or sp ecimen sampling error. UNLESS OTHERWISE INDIC ATED, ALL TESTING PERFORM ED [facility], [facility]. [address] [place] [address] LABORATORY DIRE CTOR: TITO PETE M.D. CLIA NUMBER [id number] CAP ACCREDITATI ON NO. VAGINAL PATHOGENS DNA [id number] 13:52:37 Test Item Value Reference Range Interpretation Comments KATHY SPECIES (test code = ) NEGATIVE NEGATIVE G. VAGINALIS (test code = ) POSITIVE NEGATIVE A T. VAGINALIS (test code = ) NEGATIVE NEGATIVE [id number] 03:52:07 Test Item Value Reference Range Interpretation Comments RPR RESULT (test NON-REACTIVE NON-REACTIVE code = 3501) RPR TITER (test NOT INDIC. NOT INDIC. UNLESS OTHE RWISE code = 3500) TITER INDICATED, ALL TESTING PERFORMED [facility] [address] [place], [place] [address] LABORATORY DIRE CTOR: TITO PETE M.D. CLIA NUMBER [id number] CAP ACCREDITATI ON NO. HIV 1/2 4TH GEN, RFLX [id number] 03:45:56 Test Item Value Reference Range Interpretation Comments HIV 1/2 4TH GEN, RFLX CONF (test NON-REACTIVE NON-REACTIVE code = 3514) HEPATITIS PANEL, [id number] 03:45:56 Test Item Value Reference Range Interpretation Comments HEPATITIS A IgM (test NON-REACTIVE NON-REACTIVE code = 88347) HEPATITIS B CORE IgM NON-REACTIVE NON-REACTIVE (test code = 4644) HEPATITIS B SURF AG NON-REACTIVE NON-REACTIVE (test code = 2739) HEPATITIS C ANTIBODY REACTIVE NON-REACTIVE A (test code = 4675) INTERPRETATION (NOTE) Hepatitis A HEPATITIS A: (test serology shows no code = 2552) evidence of acu te hepatitis A. INTERPRETATION (NOTE) Hepatitis B HEPATITIS B: (test serology shows no code = 37433) evidence of ac monie hepatitis B and no indication of exposure to hepatitis B vir us in the previous si xto eight months. INTERPRETATION (NOTE) Hepatitis C HEPATITIS C: (test serology is code = 26806) consistent wit h exposure to hepatitis Cviru s. The CDC recomme nds performing a supplemental confirmatory te ston initial positiv e hepatitis C ant ibody tests. HCV PCR quantitativecan be used to confirm these results o n a new sample (See MMWR, 2003;52 R R-3). [id number] 00:00:00 Test Item Value Reference Range Interpretation Comments RPR RESULT (test code = NON-REACTIVE 3501) RPR TITER (test code = 3500) NOT INDIC. TITER VAGINAL PATHOGENS DNA [id number] 00:00:00 Test Item Value Reference Range Interpretation Comments KATHY SPECIES (test code = ) NEGATIVE G. VAGINALIS (test code = ) POSITIVE T. VAGINALIS (test code = ) NEGATIVE PAP TEST, THINPREP, [id number] 00:00:00 Test Item Value Reference Range Interpretation Comments SOURCE: (test code = Cervical/Endocervical 8001) SLIDES: (test code = 1 8011) LMP: (test code = 8021) 09/23/2021 SPECIMEN ADEQUACY: (test (NOTE) code = 95224) INTERPRETATION: (test NILM/NO EPITH. code = 40620) ABNORMALITY;SEE BELOW OTHER COMMENTS: (test (NOTE) code = 8081) COAL SHOOTER: (test Malek code = 8101) POLO Atwood(ASCP) IAC LOCATION: (test code = (NOTE) 16542) CPT: (test code = 8140) (NOTE) PAP TEST, THINPREP, [id number] 00:00:00 Test Item Value Reference Range Interpretation Comments SOURCE: (test code = Cervical/Endocervical 8001) SLIDES: (test code = 1 8011) LMP: (test code = 8021) 09/23/2021 SPECIMEN ADEQUACY: (test (NOTE) code = 60129) INTERPRETATION: (test NILM/NO EPITH. code = 08706) ABNORMALITY;SEE BELOW OTHER COMMENTS: (test (NOTE) code = 8081) COAL SHOOTER: (test Malek code = 8101) POLO Atwood(ASCP) IAC LOCATION: (test code = (NOTE) 18761) CPT: (test code = 8140) (NOTE) VAGINAL PATHOGENS DNA [id number] 00:00:00 Test Item Value Reference Range Interpretation Comments KATHY SPECIES (test code = ) NEGATIVE G. VAGINALIS (test code = ) POSITIVE T. VAGINALIS (test code = ) NEGATIVE GC AND CHLAMYDIA, AMPLIFIED, [id number] 00:00:00 Test Item Value Reference Range Interpretation Comments GONORRHEA, NAAT (test code = 00757) NEGATIVE CHLAMYDIA, NAAT (test code = 50502) NEGATIVE GC AND CHLAMYDIA, AMPLIFIED, [id number] 00:00:00 Test Item Value Reference Range Interpretation Comments GONORRHEA, NAAT (test code = 40313) NEGATIVE CHLAMYDIA, NAAT (test code = 27749) NEGATIVE HPV HIGH RISK WITH GENOTYPE, [id number] 00:00:00 Test Item Value Reference Range Interpretation Comments HPV HIGH RISK INTERP (test code = NEGATIVE 04182) HPV 16 (test code = 08063) NEGATIVE HPV 18 (test code = 01464) NEGATIVE HPV, HR, OTHER GENOTYPES (test code NEGATIVE = 82822) HPV HIGH RISK WITH GENOTYPE, [id number] 00:00:00 Test Item Value Reference Range Interpretation Comments HPV HIGH RISK INTERP (test code = NEGATIVE 09304) HPV 16 (test code = 59300) NEGATIVE HPV 18 (test code = 81443) NEGATIVE HPV, HR, OTHER GENOTYPES (test code NEGATIVE = 79561) HIV AB/AG COMBO RFLX [id number] 00:00:00 Test Item Value Reference Range Interpretation Comments HIV 1/2 4TH GEN, RFLX CONF (test NON-REACTIVE code = 3514) HIV AB/AG COMBO RFLX [id number] 00:00:00 Test Item Value Reference Range Interpretation Comments HIV 1/2 4TH GEN, RFLX CONF (test NON-REACTIVE code = 3514) ACUTE HEPATITIS [id number] 00:00:00 Test Item Value Reference Range Interpretation Comments HEPATITIS A IgM (test code = NON-REACTIVE 72320) HEPATITIS B CORE IgM (test code NON-REACTIVE = 6344) HEPATITIS B SURF AG (test code = NON-REACTIVE 5539) HEPATITIS C ANTIBODY (test code REACTIVE = 4675) INTERPRETATION HEPATITIS A: (NOTE) (test code = 2552) INTERPRETATION HEPATITIS B: (NOTE) (test code = 99218) INTERPRETATION HEPATITIS C: (NOTE) (test code = 48292) ACUTE HEPATITIS [id number] 00:00:00 Test Item Value Reference Range Interpretation Comments HEPATITIS A IgM (test code = NON-REACTIVE 19761) HEPATITIS B CORE IgM (test code NON-REACTIVE = 4644) HEPATITIS B SURF AG (test code = NON-REACTIVE 2739) HEPATITIS C ANTIBODY (test code REACTIVE = 4675) INTERPRETATION HEPATITIS A: (NOTE) (test code = 2552) INTERPRETATION HEPATITIS B: (NOTE) (test code = 68332) INTERPRETATION HEPATITIS C: (NOTE) (test code = 94074) [id number] 00:00:00 Test Item Value Reference Range Interpretation Comments RPR RESULT (test code = NON-REACTIVE 3501) RPR TITER (test code = 3500) NOT INDIC. TITER [id number] 00:00:00 Test Item Value Reference Range Interpretation Comments RPR RESULT (test code = NON-REACTIVE 3501) RPR TITER (test code = 3500) NOT INDIC. TITER [id number] 00:00:00 Test Item Value Reference Range Interpretation Comments RPR RESULT (test code = NON-REACTIVE 3501) RPR TITER (test code = 3500) NOT INDIC. TITER VAGINAL PATHOGENS DNA [id number] 00:00:00 Test Item Value Reference Range Interpretation Comments KATHY SPECIES (test code = ) NEGATIVE G. VAGINALIS (test code = 74446) POSITIVE T. VAGINALIS (test code = ) NEGATIVE PAP TEST, THINPREP, [id number] 00:00:00 Test Item Value Reference Range Interpretation Comments SOURCE: (test code = Cervical/Endocervical 8001) SLIDES: (test code = 1 8011) LMP: (test code = 8021) 09/23/2021 SPECIMEN ADEQUACY: (test (NOTE) code = 56023) INTERPRETATION: (test NILM/NO EPITH. code = 68156) ABNORMALITY;SEE BELOW OTHER COMMENTS: (test (NOTE) code = 8081) COAL SHOOTER: (test Malek code = 8101) POLO Atwood(ASCP) IAC LOCATION: (test code = (NOTE) 68751) CPT: (test code = 8140) (NOTE) PAP TEST, THINPREP, [id number] 00:00:00 Test Item Value Reference Range Interpretation Comments SOURCE: (test code = Cervical/Endocervical 8001) SLIDES: (test code = 1 8011) LMP: (test code = 8021) 09/23/2021 SPECIMEN ADEQUACY: (test (NOTE) code = 90893) INTERPRETATION: (test NILM/NO EPITH. code = 78471) ABNORMALITY;SEE BELOW OTHER COMMENTS: (test (NOTE) code = 8081) COAL SHOOTER: (test Malek code = 8101) POLO Atwood(ASCP) IAC LOCATION: (test code = (NOTE) 72194) CPT: (test code = 8140) (NOTE) VAGINAL PATHOGENS DNA [id number] 00:00:00 Test Item Value Reference Range Interpretation Comments KATHY SPECIES (test code = 10529) NEGATIVE G. VAGINALIS (test code = 10784) POSITIVE T. VAGINALIS (test code = 92785) NEGATIVE VAGINAL PATHOGENS DNA [id number] 00:00:00 Test Item Value Reference Range Interpretation Comments KATHY SPECIES (test code = 40549) NEGATIVE G. VAGINALIS (test code = 22446) POSITIVE T. VAGINALIS (test code = 86649) NEGATIVE PAP TEST, THINPREP, [id number] 00:00:00 Test Item Value Reference Range Interpretation Comments SOURCE: (test code = Cervical/Endocervical 8001) SLIDES: (test code = 1 8011) LMP: (test code = 8021) 09/23/2021 SPECIMEN ADEQUACY: (test (NOTE) code = 86805) INTERPRETATION: (test NILM/NO EPITH. code = 62187) ABNORMALITY;SEE BELOW OTHER COMMENTS: (test (NOTE) code = 8081) COAL SHOOTER: (test Malek code = 8101) POLO Atwood(ASCP) IAC LOCATION: (test code = (NOTE) 68694) CPT: (test code = 8140) (NOTE) GC AND CHLAMYDIA, AMPLIFIED, [id number] 00:00:00 Test Item Value Reference Range Interpretation Comments GONORRHEA, NAAT (test code = 19381) NEGATIVE CHLAMYDIA, NAAT (test code = 81105) NEGATIVE GC AND CHLAMYDIA, AMPLIFIED, [id number] 00:00:00 Test Item Value Reference Range Interpretation Comments GONORRHEA, NAAT (test code = 62429) NEGATIVE CHLAMYDIA, NAAT (test code = 28092) NEGATIVE HPV HIGH RISK WITH GENOTYPE, [id number] 00:00:00 Test Item Value Reference Range Interpretation Comments HPV HIGH RISK INTERP (test code = NEGATIVE 02654) HPV 16 (test code = 58677) NEGATIVE HPV 18 (test code = 75084) NEGATIVE HPV, HR, OTHER GENOTYPES (test code NEGATIVE = 63641) HPV HIGH RISK WITH GENOTYPE, [id number] 00:00:00 Test Item Value Reference Range Interpretation Comments HPV HIGH RISK INTERP (test code = NEGATIVE 07902) HPV 16 (test code = 57733) NEGATIVE HPV 18 (test code = 48319) NEGATIVE HPV, HR, OTHER GENOTYPES (test code NEGATIVE = 32129) HIV AB/AG COMBO RFLX [id number] 00:00:00 Test Item Value Reference Range Interpretation Comments HIV 1/2 4TH GEN, RFLX CONF (test NON-REACTIVE code = 3514) HIV AB/AG COMBO RFLX [id number] 00:00:00 Test Item Value Reference Range Interpretation Comments HIV 1/2 4TH GEN, RFLX CONF (test NON-REACTIVE code = 3514) ACUTE HEPATITIS [id number] 00:00:00 Test Item Value Reference Range Interpretation Comments HEPATITIS A IgM (test code = NON-REACTIVE 44955) HEPATITIS B CORE IgM (test code NON-REACTIVE = 4644) HEPATITIS B SURF AG (test code = NON-REACTIVE 2739) HEPATITIS C ANTIBODY (test code REACTIVE = 4675) INTERPRETATION HEPATITIS A: (NOTE) (test code = 2552) INTERPRETATION HEPATITIS B: (NOTE) (test code = 28210) INTERPRETATION HEPATITIS C: (NOTE) (test code = 41357) ACUTE HEPATITIS [id number] 00:00:00 Test Item Value Reference Range Interpretation Comments HEPATITIS A IgM (test code = NON-REACTIVE 55752) HEPATITIS B CORE IgM (test code NON-REACTIVE = 4644) HEPATITIS B SURF AG (test code = NON-REACTIVE 2739) HEPATITIS C ANTIBODY (test code REACTIVE = 4675) INTERPRETATION HEPATITIS A: (NOTE) (test code = 2552) INTERPRETATION HEPATITIS B: (NOTE) (test code = 00421) INTERPRETATION HEPATITIS C: (NOTE) (test code = 09986) [id number] 00:00:00 Test Item Value Reference Range Interpretation Comments RPR RESULT (test code = NON-REACTIVE 3501) RPR TITER (test code = 3500) NOT INDIC. TITER [id number] 00:00:00 Test Item Value Reference Range Interpretation Comments RPR RESULT (test code = NON-REACTIVE 3501) RPR TITER (test code = 3500) NOT INDIC. TITER [id number] 00:00:00 Test Item Value Reference Range Interpretation Comments RPR RESULT (test code = NON-REACTIVE 3501) RPR TITER (test code = 3500) NOT INDIC. TITER PAP TEST, THINPREP, [id number] 00:00:00 Test Item Value Reference Range Interpretation Comments SOURCE: (test code = Cervical/Endocervical 8001) SLIDES: (test code = 1 8011) LMP: (test code = 8021) 09/23/2021 SPECIMEN ADEQUACY: (test (NOTE) code = 17883) INTERPRETATION: (test NILM/NO EPITH. code = 98659) ABNORMALITY;SEE BELOW OTHER COMMENTS: (test (NOTE) code = 8081) COAL SHOOTER: (test Malek code = 8101) POLO Atwood(ASCP) IAC LOCATION: (test code = (NOTE) 11909) CPT: (test code = 8140) (NOTE) VAGINAL PATHOGENS DNA [id number] 00:00:00 Test Item Value Reference Range Interpretation Comments KATHY SPECIES (test code = 59618) NEGATIVE G. VAGINALIS (test code = 00574) POSITIVE T. VAGINALIS (test code = 70011) NEGATIVE GC AND CHLAMYDIA, AMPLIFIED, [id number] 00:00:00 Test Item Value Reference Range Interpretation Comments GONORRHEA, NAAT (test code = 94884) NEGATIVE CHLAMYDIA, NAAT (test code = 79133) NEGATIVE PAP TEST, THINPREP, [id number] 00:00:00 Test Item Value Reference Range Interpretation Comments SOURCE: (test code = Cervical/Endocervical 8001) SLIDES: (test code = 1 8011) LMP: (test code = 8021) 09/23/2021 SPECIMEN ADEQUACY: (test (NOTE) code = 73095) INTERPRETATION: (test NILM/NO EPITH. code = 98915) ABNORMALITY;SEE BELOW OTHER COMMENTS: (test (NOTE) code = 8081) COAL SHOOTER: (test Malek code = 8101) POLO Atwood(ASCP) IAC LOCATION: (test code = (NOTE) 76880) CPT: (test code = 8140) (NOTE) PAP TEST, THINPREP, [id number] 00:00:00 Test Item Value Reference Range Interpretation Comments SOURCE: (test code = Cervical/Endocervical 8001) SLIDES: (test code = 1 8011) LMP: (test code = 8021) 09/23/2021 SPECIMEN ADEQUACY: (test (NOTE) code = 21593) INTERPRETATION: (test NILM/NO EPITH. code = 69096) ABNORMALITY;SEE BELOW OTHER COMMENTS: (test (NOTE) code = 8081) COAL SHOOTER: (test Malek code = 8101) POLO Atwood(ASCP) IAC LOCATION: (test code = (NOTE) 76742) CPT: (test code = 8140) (NOTE) HPV HIGH RISK WITH GENOTYPE, [id number] 00:00:00 Test Item Value Reference Range Interpretation Comments HPV HIGH RISK INTERP (test code = NEGATIVE 18384) HPV 16 (test code = 99997) NEGATIVE HPV 18 (test code = 05345) NEGATIVE HPV, HR, OTHER GENOTYPES (test code NEGATIVE = 31720) VAGINAL PATHOGENS DNA [id number] 00:00:00 Test Item Value Reference Range Interpretation Comments KATHY SPECIES (test code = ) NEGATIVE G. VAGINALIS (test code = 50375) POSITIVE T. VAGINALIS (test code = 76406) NEGATIVE VAGINAL PATHOGENS DNA [id number] 00:00:00 Test Item Value Reference Range Interpretation Comments KATHY SPECIES (test code = ) NEGATIVE G. VAGINALIS (test code = 88686) POSITIVE T. VAGINALIS (test code = 88700) NEGATIVE GC AND CHLAMYDIA, AMPLIFIED, [id number] 00:00:00 Test Item Value Reference Range Interpretation Comments GONORRHEA, NAAT (test code = 03569) NEGATIVE CHLAMYDIA, NAAT (test code = 65472) NEGATIVE HPV HIGH RISK WITH GENOTYPE, [id number] 00:00:00 Test Item Value Reference Range Interpretation Comments HPV HIGH RISK INTERP (test code = NEGATIVE 49247) HPV 16 (test code = 05212) NEGATIVE HPV 18 (test code = 33940) NEGATIVE HPV, HR, OTHER GENOTYPES (test code NEGATIVE = 55300) HPV HIGH RISK WITH GENOTYPE, [id number] 00:00:00 Test Item Value Reference Range Interpretation Comments HPV HIGH RISK INTERP (test code = NEGATIVE 62241) HPV 16 (test code = 87848) NEGATIVE HPV 18 (test code = 52413) NEGATIVE HPV, HR, OTHER GENOTYPES (test code NEGATIVE = 47857) GC AND CHLAMYDIA, AMPLIFIED, [id number] 00:00:00 Test Item Value Reference Range Interpretation Comments GONORRHEA, NAAT (test code = 09102) NEGATIVE CHLAMYDIA, NAAT (test code = 73637) NEGATIVE GC AND CHLAMYDIA, AMPLIFIED, [id number] 00:00:00 Test Item Value Reference Range Interpretation Comments GONORRHEA, NAAT (test code = 92347) NEGATIVE CHLAMYDIA, NAAT (test code = 17080) NEGATIVE HIV AB/AG COMBO RFLX [id number] 00:00:00 Test Item Value Reference Range Interpretation Comments HIV 1/2 4TH GEN, RFLX CONF (test NON-REACTIVE code = 3514) HIV AB/AG COMBO RFLX [id number] 00:00:00 Test Item Value Reference Range Interpretation Comments HIV 1/2 4TH GEN, RFLX CONF (test NON-REACTIVE code = 3514) HPV HIGH RISK WITH GENOTYPE, [id number] 00:00:00 Test Item Value Reference Range Interpretation Comments HPV HIGH RISK INTERP (test code = NEGATIVE 34891) HPV 16 (test code = 17140) NEGATIVE HPV 18 (test code = 73170) NEGATIVE HPV, HR, OTHER GENOTYPES (test code NEGATIVE = 21423) ACUTE HEPATITIS [id number] 00:00:00 Test Item Value Reference Range Interpretation Comments HEPATITIS A IgM (test code = NON-REACTIVE 71216) HEPATITIS B CORE IgM (test code NON-REACTIVE = 4644) HEPATITIS B SURF AG (test code = NON-REACTIVE 2739) HEPATITIS C ANTIBODY (test code REACTIVE = 0175) INTERPRETATION HEPATITIS A: (NOTE) (test code = 2552) INTERPRETATION HEPATITIS B: (NOTE) (test code = 36894) INTERPRETATION HEPATITIS C: (NOTE) (test code = 07538) ACUTE HEPATITIS [id number] 00:00:00 Test Item Value Reference Range Interpretation Comments HEPATITIS A IgM (test code = NON-REACTIVE 51542) HEPATITIS B CORE IgM (test code NON-REACTIVE = 4644) HEPATITIS B SURF AG (test code = NON-REACTIVE 2739) HEPATITIS C ANTIBODY (test code REACTIVE = 4675) INTERPRETATION HEPATITIS A: (NOTE) (test code = 2552) INTERPRETATION HEPATITIS B: (NOTE) (test code = 17738) INTERPRETATION HEPATITIS C: (NOTE) (test code = 92805) [id number] 00:00:00 Test Item Value Reference Range Interpretation Comments RPR RESULT (test code = NON-REACTIVE 3501) RPR TITER (test code = 3500) NOT INDIC. TITER [id number] 00:00:00 Test Item Value Reference Range Interpretation Comments RPR RESULT (test code = NON-REACTIVE 3501) RPR TITER (test code = 3500) NOT INDIC. TITER [id number] 00:00:00 Test Item Value Reference Range Interpretation Comments RPR RESULT (test code = NON-REACTIVE 3501) RPR TITER (test code = 3500) NOT INDIC. TITER HIV AB/AG COMBO RFLX [id number] 00:00:00 Test Item Value Reference Range Interpretation Comments HIV 1/2 4TH GEN, RFLX CONF (test NON-REACTIVE code = 3514) HIV AB/AG COMBO RFLX [id number] 00:00:00 Test Item Value Reference Range Interpretation Comments HIV 1/2 4TH GEN, RFLX CONF (test NON-REACTIVE code = 3514) ACUTE HEPATITIS [id number] 00:00:00 Test Item Value Reference Range Interpretation Comments HEPATITIS A IgM (test code = NON-REACTIVE 27375) HEPATITIS B CORE IgM (test code NON-REACTIVE = 4644) HEPATITIS B SURF AG (test code = NON-REACTIVE 2739) HEPATITIS C ANTIBODY (test code REACTIVE = 4675) INTERPRETATION HEPATITIS A: (NOTE) (test code = 2552) INTERPRETATION HEPATITIS B: (NOTE) (test code = 21363) INTERPRETATION HEPATITIS C: (NOTE) (test code = 39458) ACUTE HEPATITIS [id number] 00:00:00 Test Item Value Reference Range Interpretation Comments HEPATITIS A IgM (test code = NON-REACTIVE 55328) HEPATITIS B CORE IgM (test code NON-REACTIVE = 4644) HEPATITIS B SURF AG (test code = NON-REACTIVE 5329) HEPATITIS C ANTIBODY (test code REACTIVE = 4642) INTERPRETATION HEPATITIS A: (NOTE) (test code = 2552) INTERPRETATION HEPATITIS B: (NOTE) (test code = 61022) INTERPRETATION HEPATITIS C: (NOTE) (test code = 05690) [id number] 00:00:00 Test Item Value Reference Range Interpretation Comments RPR RESULT (test code = NON-REACTIVE 3501) RPR TITER (test code = 3500) NOT INDIC. TITER [id number] 00:00:00 Test Item Value Reference Range Interpretation Comments RPR RESULT (test code = NON-REACTIVE 3501) RPR TITER (test code = 3500) NOT INDIC. TITER Troponin [id number] 20:29:39 Test Item Value Reference Range Interpretation Comments TROPONIN I (test 0.000 ng/mL See_Comment [Automated code = [id number]) message] The system which generated this result [...] ? Lab Interpretation Normal (test code = 08096-5) [facility] [id number] [facility]:29:14 Test Item Value Reference Range Interpretation Comments AMPHET (test code = Negative Negative 4552346064) MILAGROS U (test code = Negative Negative 1796922016) BENZO U (test code = Presumptive Positive Negative A 4240880994) Cocaine Metabolite (test Negative Negative code = 3485425120) METHADONE (test code = Negative Negative 9010816233) OPIATES (test code = Negative Negative 8214960237) PCP (test code = Negative Negative 0268845503) THC (test code = Presumptive Positive Negative A 4445138193) ADRIANA (test code = ADRIANA) Urine Drug [...] testing). Lab Interpretation (test Abnormal code = 80888-8) [facility] (NA, K, CL, CO2, GLUCOSE, BUN, CREATININE, CA)2021-01-12 20:18:17 Test Item Value Reference Range Interpretation Comments NA (test code = 138 mmol/L 135-145 8109856341) K (test code = 3.8 mmol/L 3.5-5.0 2322278635) CL (test code = 103 mmol/L 98-108 9906829567) CO2 TOTAL (test code = 27 mmol/L 23-31 0294253450) AGAP (test code = 2-16 2717085395) BUN (test code = 9 mg/dL 7-23 9975084038) GLUCOSE (test code = 100 mg/dL 70-110 0383492359) CREATININE (test code = 0.48 mg/dL 0.50-1.04 L 6024421618) CALCIUM (test code = 9.1 mg/dL 8.6-10.6 9978859709) eGFR (test code = mL/min/1.73m2 6523440704) ADRIANA (test code = ADRIANA) Association of [...] tests). Lab Interpretation Abnormal (test code = 18194-1) [facility] Test Item Value Reference Range Interpretation Comments APPEARANCE (test code = Clear Clear 3848050380) COLOR (test code = Yellow Yellow 6001886773) PH (test code = 4.8-8.0 4707834200) SP GRAVITY (test code = 1.003-1.030 0567385330) GLU U QUAL (test code = Normal Normal 7127606743) BLOOD (test code = Negative Negative 3593409278) KETONES (test code = Negative Negative 5697489191) PROTEIN (test code = Negative Negative 2887-8) UROBILIN (test code = Normal Normal 9116684233) BILIRUBIN (test code = Negative Negative 5408023446) NITRITE (test code = Negative Negative 5815894773) LEUK SUSAN (test code = Negative Negative 0382702413) RBC/HPF (test code = See_Comment [Autom ated message] 7624116607) The system [employer] generated this result transmitted ref erence range: 0 - 3 HP F. The reference range was not used to int erpret this result as normal/abnormal . WBC/HPF (test code = See_Comment [Autom ated message] 0196722525) The system [employer] generated this result transmitted ref erence range: 0 - 5 HP F. The reference range was not used to int erpret this result as normal/abnormal . BACTERIA (test code = Negative Negative 5521661047) Lab Interpretation (test Normal code = 12351-8) [facility] with [id number] 19:58:59 Test Item Value Reference Range Interpretation Comments WBC (test code = See_Comment [Automated 7990-2) message] The sy stem which generated this result transmitted reference range : 4.30 - 11.10 10*3/?L. The reference range was not used to interpret this result as normal/abnormal . RBC (test code = See_Comment [Automated 559-8) message] The sy stem which generated this [...] RDW-SD (test code = 40.3 fL 39.0-49.9 58369-5) RDW-CV (test code = 12.0 % 12.0-15.5 788-0) PLT (test code = See_Comment [Automated 777-3) message] The sy stem which generated this result transmitted reference range : 166 - 358 10*3/ ?L. The reference r [place] was not used to interpret this result as normal/abnormal . MPV (test code = 10.3 fL 9.5-12.9 78576-2) NRBC/100 WBC (test See_Comment [Automat ed code = 5087215162) message] The system which generated this result transmitted reference range : 0.0 - 10.0 /100 WBCs. The refer ence range was not u sed to interpret th is result as normal/abnormal . NRBC x10^3 (test code <0.01 See_Comment [Auto mated = [id number]) message] The s ystem which generated this result transmitted reference range : 10*3/?L. The reference range was not used to interpret this result as normal/abnormal . GRAN MAT (NEUT) % 65.8 % (test code = 770-8) IMM GRAN % (test code 0.30 % = [id number]) LYMPH % (test code = 22.3 % 736-9) MONO % (test code = 10.2 % 5905-5) EOS % (test code = 0.9 % 713-8) BASO % (test code = 0.5 % 706-2) GRAN MAT x10^3(ANC) 6.11 10*3/uL 1.88-7.09 (test code = [id number]) IMM GRAN x10^3 (test 0.03 10*3/uL 0.00-0.06 code = [id number]) LYMPH x10^3 (test code 2.07 10*3/uL 1.32-3.29 = 731-0) MONO x10^3 (test code 0.95 10*3/uL 0.33-0.92 H = 742-7) EOS x10^3 (test code = 0.08 10*3/uL 0.03-0.39 711-2) BASO x10^3 (test code 0.05 10*3/uL 0.01-0.07 = 704-7) Lab Interpretation Abnormal (test code = 32462-8) [id number] 19:51:00 Test Item Value Reference Range Interpretation Comments POCT PREG (test code = 1605) negative On board controls acceptable with present C Line (test code = 3574) POCT PREG LOT # (test code = [id number]) POCT PREG TEST DATE (test 07/15/2022 code = 3576) Lab Interpretation (test code = Normal 09564-3) [id number] Test Item Value Reference Range Interpretation Comments T. PALLIDUM - PA (test code = NON-REACTIVE 42123) T. PALLIDUM [id number] 00:00:00 Test Item Value Reference Range Interpretation Comments T. PALLIDUM - PA (test code = NON-REACTIVE 35769) T. PALLIDUM [id number] 00:00:00 Test Item Value Reference Range Interpretation Comments T. PALLIDUM - PA (test code = NON-REACTIVE 28417) T. PALLIDUM [id number] 00:00:00 Test Item Value Reference Range Interpretation Comments T. PALLIDUM - PA (test code = NON-REACTIVE 43770) T. PALLIDUM [id number] 00:00:00 Test Item Value Reference Range Interpretation Comments T. PALLIDUM - PA (test code = NON-REACTIVE 21971) T. PALLIDUM [id number] 00:00:00 Test Item Value Reference Range Interpretation Comments T. PALLIDUM - PA (test code = NON-REACTIVE 92004) T. PALLIDUM [id number] 00:00:00 Test Item Value Reference Range Interpretation Comments T. PALLIDUM - PA (test code = NON-REACTIVE 15142) T. PALLIDUM [id number] 00:00:00 Test Item Value Reference Range Interpretation Comments T. PALLIDUM - PA (test code = NON-REACTIVE 47162) US ABDOMEN [id number] 22:27:45 1. ?Normal size liver with normal echotexture.. No focal lesion is seen.2. ?Rest of the study is also unremarkable. Preliminary Report Dictated by Resident: Adrián Guzman MD., have reviewed this study and agree with theabove report.EXAM: US ABDOMEN COMPLETE HISTORY: 45 years-old Female with Abnormal results of liver functionstudies Chronic hepatitis C without hepatic coma Re ceived faxed orders forabd complete ultrasound. TECHNIQUE: Complete abdominal ultrasound was performed. Main portal veinwas evaluated with color Doppler imaging. [employer] Intern images wereobtained for the record. COMPARISON: None FINDINGS: LIVER: Length: 15.3 cm.Parenchyma: Liver is normal in size andshows normal echotexture.. No focallesion is detected.Portal vein: [...] portal veinwas evaluated with color Doppler imaging. [employer] Intern images wereobtained for the record.COMPARISON: NoneFINDINGS: LIVER: [...] reviewed this study and agree with theabove report.[facility] [id number] 00:00:00 Test Item Value Reference Range Interpretation Comments T. PALLIDUM - PA (test code = NON-REACTIVE 85612) T. PALLIDUM [id number] 00:00:00 Test Item Value Reference Range Interpretation Comments T. PALLIDUM - PA (test code = NON-REACTIVE 57861) T. PALLIDUM [id number] 00:00:00 Test Item Value Reference Range Interpretation Comments T. PALLIDUM - PA (test code = NON-REACTIVE 06549) T. PALLIDUM [id number] 00:00:00 Test Item Value Reference Range Interpretation Comments T. PALLIDUM - PA (test code = NON-REACTIVE 68395) T. PALLIDUM [id number] 00:00:00 Test Item Value Reference Range Interpretation Comments T. PALLIDUM - PA (test code = NON-REACTIVE 06057) T. PALLIDUM [id number] 00:00:00 Test Item Value Reference Range Interpretation Comments T. PALLIDUM - PA (test code = NON-REACTIVE 81523) T. PALLIDUM [id number] 00:00:00 Test Item Value Reference Range Interpretation Comments T. PALLIDUM - PA (test code = NON-REACTIVE 26850) T. PALLIDUM [id number] 00:00:00 Test Item Value Reference Range Interpretation Comments T. PALLIDUM - PA (test code = NON-REACTIVE 34859) HIV AB/AG COMBO RFLX [id number] 00:00:00 Test Item Value Reference Range Interpretation Comments HIV 1/2 4TH GEN, RFLX CONF (test NON-REACTIVE code = 3514) VAGINAL PATHOGENS DNA [id number] 00:00:00 Test Item Value Reference Range Interpretation Comments KATHY SPECIES (test code = ) NEGATIVE G. VAGINALIS (test code = 08543) POSITIVE T. VAGINALIS (test code = ) NEGATIVE HIV AB/AG COMBO RFLX [id number] 00:00:00 Test Item Value Reference Range Interpretation Comments HIV 1/2 4TH GEN, RFLX CONF (test NON-REACTIVE code = 3514) VAGINAL PATHOGENS DNA [id number] 00:00:00 Test Item Value Reference Range Interpretation Comments KATHY SPECIES (test code = ) NEGATIVE G. VAGINALIS (test code = 65782) POSITIVE T. VAGINALIS (test code = ) NEGATIVE [id number] 00:00:00 Test Item Value Reference Range Interpretation Comments RPR RESULT (test code = 3501) REACTIVE RPR TITER (test code = 3500) 1:1 TITER [id number] 00:00:00 Test Item Value Reference Range Interpretation Comments RPR RESULT (test code = 3501) REACTIVE RPR TITER (test code = 3500) 1:1 TITER [id number] 00:00:00 Test Item Value Reference Range Interpretation Comments RPR RESULT (test code = 3501) REACTIVE RPR TITER (test code = 3500) 1:1 TITER CHLAMYDIA, AMPLIFIED, [id number] 00:00:00 Test Item Value Reference Range Interpretation Comments CHLAMYDIA, TMA (test code = 04800) NEGATIVE CHLAMYDIA, AMPLIFIED, [id number] 00:00:00 Test Item Value Reference Range Interpretation Comments CHLAMYDIA, TMA (test code = 42284) NEGATIVE GC, AMPLIFIED, [id number] 00:00:00 Test Item Value Reference Range Interpretation Comments GONORRHEA, TMA (test code = 53448) NEGATIVE GC, AMPLIFIED, [id number] 00:00:00 Test Item Value Reference Range Interpretation Comments GONORRHEA, TMA (test code = 95972) NEGATIVE HIV AB/AG COMBO RFLX [id number] 00:00:00 Test Item Value Reference Range Interpretation Comments HIV 1/2 4TH GEN, RFLX CONF (test NON-REACTIVE code = 3514) VAGINAL PATHOGENS DNA [id number] 00:00:00 Test Item Value Reference Range Interpretation Comments KATHY SPECIES (test code = ) NEGATIVE G. VAGINALIS (test code = 47442) POSITIVE T. VAGINALIS (test code = 12446) NEGATIVE HIV AB/AG COMBO RFLX [id number] 00:00:00 Test Item Value Reference Range Interpretation Comments HIV 1/2 4TH GEN, RFLX CONF (test NON-REACTIVE code = 3514) HIV AB/AG COMBO RFLX [id number] 00:00:00 Test Item Value Reference Range Interpretation Comments HIV 1/2 4TH GEN, RFLX CONF (test NON-REACTIVE code = 3514) VAGINAL PATHOGENS DNA [id number] 00:00:00 Test Item Value Reference Range Interpretation Comments KATHY SPECIES (test code = ) NEGATIVE G. VAGINALIS (test code = 85120) POSITIVE T. VAGINALIS (test code = 94278) NEGATIVE HIV AB/AG COMBO RFLX [id number] 00:00:00 Test Item Value Reference Range Interpretation Comments HIV 1/2 4TH GEN, RFLX CONF (test NON-REACTIVE code = 4) VAGINAL PATHOGENS DNA [id number] 00:00:00 Test Item Value Reference Range Interpretation Comments KATHY SPECIES (test code = ) NEGATIVE G. VAGINALIS (test code = 59433) POSITIVE T. VAGINALIS (test code = 11167) NEGATIVE [id number] 00:00:00 Test Item Value Reference Range Interpretation Comments RPR RESULT (test code = 3501) REACTIVE RPR TITER (test code = 3500) 1:1 TITER [id number] 00:00:00 Test Item Value Reference Range Interpretation Comments RPR RESULT (test code = 3501) REACTIVE RPR TITER (test code = 3500) 1:1 TITER [id number] 00:00:00 Test Item Value Reference Range Interpretation Comments RPR RESULT (test code = 3501) REACTIVE RPR TITER (test code = 3500) 1:1 TITER VAGINAL PATHOGENS DNA [id number] 00:00:00 Test Item Value Reference Range Interpretation Comments KATHY SPECIES (test code = ) NEGATIVE G. VAGINALIS (test code = 89664) POSITIVE T. VAGINALIS (test code = 95378) NEGATIVE CHLAMYDIA, AMPLIFIED, [id number] 00:00:00 Test Item Value Reference Range Interpretation Comments CHLAMYDIA, TMA (test code = 54191) NEGATIVE CHLAMYDIA, AMPLIFIED, [id number] 00:00:00 Test Item Value Reference Range Interpretation Comments CHLAMYDIA, TMA (test code = 42750) NEGATIVE GC, AMPLIFIED, [id number] 00:00:00 Test Item Value Reference Range Interpretation Comments GONORRHEA, TMA (test code = 47160) NEGATIVE GC, AMPLIFIED, [id number] 00:00:00 Test Item Value Reference Range Interpretation Comments GONORRHEA, TMA (test code = 15650) NEGATIVE HIV AB/AG COMBO RFLX [id number] 00:00:00 Test Item Value Reference Range Interpretation Comments HIV 1/2 4TH GEN, RFLX CONF (test NON-REACTIVE code = 3514) VAGINAL PATHOGENS DNA [id number] 00:00:00 Test Item Value Reference Range Interpretation Comments KATHY SPECIES (test code = ) NEGATIVE G. VAGINALIS (test code = 05311) POSITIVE T. VAGINALIS (test code = 62358) NEGATIVE HIV AB/AG COMBO RFLX [id number] 00:00:00 Test Item Value Reference Range Interpretation Comments HIV 1/2 4TH GEN, RFLX CONF (test NON-REACTIVE code = 3514) [id number] 00:00:00 Test Item Value Reference Range Interpretation Comments RPR RESULT (test code = 3501) REACTIVE RPR TITER (test code = 3500) 1:1 TITER VAGINAL PATHOGENS DNA [id number] 00:00:00 Test Item Value Reference Range Interpretation Comments KATHY SPECIES (test code = ) NEGATIVE G. VAGINALIS (test code = 00661) POSITIVE T. VAGINALIS (test code = 86468) NEGATIVE [id number] 00:00:00 Test Item Value Reference Range Interpretation Comments RPR RESULT (test code = 3501) REACTIVE RPR TITER (test code = 3500) 1:1 TITER [id number] 00:00:00 Test Item Value Reference Range Interpretation Comments RPR RESULT (test code = 3501) REACTIVE RPR TITER (test code = 3500) 1:1 TITER [id number] 00:00:00 Test Item Value Reference Range Interpretation Comments RPR RESULT (test code = 3501) REACTIVE RPR TITER (test code = 3500) 1:1 TITER CHLAMYDIA, AMPLIFIED, [id number] 00:00:00 Test Item Value Reference Range Interpretation Comments CHLAMYDIA, TMA (test code = 21173) NEGATIVE CHLAMYDIA, AMPLIFIED, [id number] 00:00:00 Test Item Value Reference Range Interpretation Comments CHLAMYDIA, TMA (test code = 75364) NEGATIVE GC, AMPLIFIED, [id number] 00:00:00 Test Item Value Reference Range Interpretation Comments GONORRHEA, TMA (test code = 58236) NEGATIVE GC, AMPLIFIED, [id number] 00:00:00 Test Item Value Reference Range Interpretation Comments GONORRHEA, TMA (test code = 43766) NEGATIVE [id number] 00:00:00 Test Item Value Reference Range Interpretation Comments RPR RESULT (test code = 3501) REACTIVE RPR TITER (test code = 3500) 1:1 TITER [id number] 00:00:00 Test Item Value Reference Range Interpretation Comments RPR RESULT (test code = 3501) REACTIVE RPR TITER (test code = 3500) 1:1 TITER CHLAMYDIA, AMPLIFIED, [id number] 00:00:00 Test Item Value Reference Range Interpretation Comments CHLAMYDIA, TMA (test code = 07759) NEGATIVE CHLAMYDIA, AMPLIFIED, [id number] 00:00:00 Test Item Value Reference Range Interpretation Comments CHLAMYDIA, TMA (test code = 73726) NEGATIVE GC, AMPLIFIED, [id number] 00:00:00 Test Item Value Reference Range Interpretation Comments GONORRHEA, TMA (test code = 44629) NEGATIVE GC, AMPLIFIED, [id number] 00:00:00 Test Item Value Reference Range Interpretation Comments GONORRHEA, TMA (test code = 29275) NEGATIVE [id number] 00:00:00 Test Item Value Reference Range Interpretation Comments TSH, THIRD GENERATION (test code 1.440 UIU/ML = 2821) [id number] 00:00:00 Test Item Value Reference Range Interpretation Comments TSH, THIRD GENERATION (test code 1.440 UIU/ML = 2821) [id number] 00:00:00 Test Item Value Reference Range Interpretation Comments TSH, THIRD GENERATION (test code 1.440 UIU/ML = 2821) [id number] 00:00:00 Test Item Value Reference Range Interpretation Comments TSH, THIRD GENERATION (test code 1.440 UIU/ML = 2821) [id number] 00:00:00 Test Item Value Reference Range Interpretation Comments TSH, THIRD GENERATION (test code 1.440 UIU/ML = 2821) [id number] 00:00:00 Test Item Value Reference Range Interpretation Comments TSH, THIRD GENERATION (test code 1.440 UIU/ML = 2821) [id number] 00:00:00 Test Item Value Reference Range Interpretation Comments TSH, THIRD GENERATION (test code 1.440 UIU/ML = 2821) [id number] 00:00:00 Test Item Value Reference Range Interpretation Comments TSH, THIRD GENERATION (test code 1.440 UIU/ML = 2821) [id number] 00:00:00 Test Item Value Reference Range Interpretation Comments TSH, THIRD GENERATION (test code 1.440 UIU/ML = 2821) [id number] 00:00:00 Test Item Value Reference Range Interpretation Comments TSH, THIRD GENERATION (test code 1.440 UIU/ML = 2821) [id number] 00:00:00 Test Item Value Reference Range Interpretation Comments TSH, THIRD GENERATION (test code 1.440 UIU/ML = 2821) [id number] 00:00:00 Test Item Value Reference Range Interpretation Comments TSH, THIRD GENERATION (test code 1.440 UIU/ML = 2821) CBC W/AUTO [id number] 00:00:00 Test Item Value Reference Range Interpretation Comments WBC (test code = 1001) 8.4 K/UL RBC (test code = 1002) 4.58 M/UL HEMOGLOBIN (test code = 1003) 14.2 G/DL HEMATOCRIT (test code = 1004) 42.7 % MCV (test code = 1005) 93.2 fL MCH (test code = 1006) 31.0 PG MCHC (test code = 1007) 33.3 G/DL RDW (test code = 1038) 12.1 % NEUTROPHILS (test code = 1008) 63.3 % LYMPHOCYTES (test code = 1010) 27.0 % MONOCYTES (test code = 1011) 6.8 % EOSINOPHILS (test code = 1012) 2.3 % BASOPHILS (test code = 1013) 0.6 % PLATELET COUNT (test code = 1015) 363 K/UL CBC W/AUTO [id number] 00:00:00 Test Item Value Reference Range Interpretation Comments WBC (test code = 1001) 8.4 K/UL RBC (test code = 1002) 4.58 M/UL HEMOGLOBIN (test code = 1003) 14.2 G/DL HEMATOCRIT (test code = 1004) 42.7 % MCV (test code = 1005) 93.2 fL MCH (test code = 1006) 31.0 PG MCHC (test code = 1007) 33.3 G/DL RDW (test code = 1038) 12.1 % NEUTROPHILS (test code = 1008) 63.3 % LYMPHOCYTES (test code = 1010) 27.0 % MONOCYTES (test code = 1011) 6.8 % EOSINOPHILS (test code = 1012) 2.3 % BASOPHILS (test code = 1013) 0.6 % PLATELET COUNT (test code = 1015) 363 K/UL CBC W/AUTO [id number] 00:00:00 Test Item Value Reference Range Interpretation Comments WBC (test code = 1001) 8.4 K/UL RBC (test code = 1002) 4.58 M/UL HEMOGLOBIN (test code = 1003) 14.2 G/DL HEMATOCRIT (test code = 1004) 42.7 % MCV (test code = 1005) 93.2 fL MCH (test code = 1006) 31.0 PG MCHC (test code = 1007) 33.3 G/DL RDW (test code = 1038) 12.1 % NEUTROPHILS (test code = 1008) 63.3 % LYMPHOCYTES (test code = 1010) 27.0 % MONOCYTES (test code = 1011) 6.8 % EOSINOPHILS (test code = 1012) 2.3 % BASOPHILS (test code = 1013) 0.6 % PLATELET COUNT (test code = 1015) 363 K/UL HEMOGLOBIN [id number] 00:00:00 Test Item Value Reference Range Interpretation Comments HEMOGLOBIN A1c (test code = 73654) 5.5 % HEMOGLOBIN [id number] 00:00:00 Test Item Value Reference Range Interpretation Comments HEMOGLOBIN A1c (test code = 26331) 5.5 % HEMOGLOBIN [id number] 00:00:00 Test Item Value Reference Range Interpretation Comments HEMOGLOBIN A1c (test code = 15136) 5.5 % COMPREHENSIVE METABOLIC [id number] 00:00:00 Test Item Value Reference Range Interpretation Comments GLUCOSE (test code = 2217) 92 MG/DL BUN (test code = 2208) 16 MG/DL CREATININE (test code = 2214) 0.70 MG/DL eGFR AMER. (test code 123 ML/MIN/1.73 = 08079) eGFR NON- AMER. (test 106 ML/MIN/1.73 code = 52339) CALC BUN/CREAT (test code = 23 RATIO 2235) SODIUM (test code = 2231) 136 MEQ/L POTASSIUM (test code = 2228) 4.6 MEQ/L CHLORIDE (test code = 2215) 101 MEQ/L CARBON DIOXIDE (test code = 24 MEQ/L 2206) CALCIUM (test code = 2209) 9.7 MG/DL PROTEIN, TOTAL (test code = 8.4 G/DL 2228) ALBUMIN (test code = 2201) 4.8 G/DL CALC GLOBULIN (test code = 3.6 G/DL 2240) CALC A/G RATIO (test code = 1.3 RATIO 2234) BILIRUBIN, TOTAL (test code = 0.9 MG/DL 2206) ALKALINE PHOSPHATASE (test 73 U/L code = 2204) AST (test code = 2218) 16 U/L ALT (test code = 2219) 16 U/L COMPREHENSIVE METABOLIC [id number] 00:00:00 Test Item Value Reference Range Interpretation Comments GLUCOSE (test code = 2217) 92 MG/DL BUN (test code = 2208) 16 MG/DL CREATININE (test code = 2214) 0.70 MG/DL eGFR AMER. (test code 123 ML/MIN/1.73 = 97602) eGFR NON- AMER. (test 106 ML/MIN/1.73 code = 65937) CALC BUN/CREAT (test code = 23 RATIO 2235) SODIUM (test code = 2231) 136 MEQ/L POTASSIUM (test code = 2228) 4.6 MEQ/L CHLORIDE (test code = 2215) 101 MEQ/L CARBON DIOXIDE (test code = 24 MEQ/L 2205) CALCIUM (test code = 2209) 9.7 MG/DL PROTEIN, TOTAL (test code = 8.4 G/DL 2228) ALBUMIN (test code = 2201) 4.8 G/DL CALC GLOBULIN (test code = 3.6 G/DL 2239) CALC A/G RATIO (test code = 1.3 RATIO 2233) BILIRUBIN, TOTAL (test code = 0.9 MG/DL 2206) ALKALINE PHOSPHATASE (test 73 U/L code = 2204) AST (test code = 2218) 16 U/L ALT (test code = 2219) 16 U/L LIPID [id number] 00:00:00 Test Item Value Reference Range Interpretation Comments CHOLESTEROL (test code = 2210) 177 MG/DL TRIGLYCERIDES (test code = 2232) 94 MG/DL HDL CHOLESTEROL (test code = 2220) 47 MG/DL CALC LDL CHOL (test code = 2237) 110 MG/DL RISK RATIO LDL/HDL (test code = 2.34 RATIO 2238) LIPID [id number] 00:00:00 Test Item Value Reference Range Interpretation Comments CHOLESTEROL (test code = 2210) 177 MG/DL TRIGLYCERIDES (test code = 2232) 94 MG/DL HDL CHOLESTEROL (test code = 2220) 47 MG/DL CALC LDL CHOL (test code = 2237) 110 MG/DL RISK RATIO LDL/HDL (test code = 2.34 RATIO 2238) CBC W/AUTO [id number] 00:00:00 Test Item Value Reference Range Interpretation Comments WBC (test code = 1001) 8.4 K/UL RBC (test code = 1002) 4.58 M/UL HEMOGLOBIN (test code = 1003) 14.2 G/DL HEMATOCRIT (test code = 1004) 42.7 % MCV (test code = 1005) 93.2 fL MCH (test code = 1006) 31.0 PG MCHC (test code = 1007) 33.3 G/DL RDW (test code = 1038) 12.1 % NEUTROPHILS (test code = 1008) 63.3 % LYMPHOCYTES (test code = 1010) 27.0 % MONOCYTES (test code = 1011) 6.8 % EOSINOPHILS (test code = 1012) 2.3 % BASOPHILS (test code = 1013) 0.6 % PLATELET COUNT (test code = 1015) 363 K/UL CBC W/AUTO [id number] 00:00:00 Test Item Value Reference Range Interpretation Comments WBC (test code = 1001) 8.4 K/UL RBC (test code = 1002) 4.58 M/UL HEMOGLOBIN (test code = 1003) 14.2 G/DL HEMATOCRIT (test code = 1004) 42.7 % MCV (test code = 1005) 93.2 fL MCH (test code = 1006) 31.0 PG MCHC (test code = 1007) 33.3 G/DL RDW (test code = 1038) 12.1 % NEUTROPHILS (test code = 1008) 63.3 % LYMPHOCYTES (test code = 1010) 27.0 % MONOCYTES (test code = 1011) 6.8 % EOSINOPHILS (test code = 1012) 2.3 % BASOPHILS (test code = 1013) 0.6 % PLATELET COUNT (test code = 1015) 363 K/UL CBC W/AUTO [id number] 00:00:00 Test Item Value Reference Range Interpretation Comments WBC (test code = 1001) 8.4 K/UL RBC (test code = 1002) 4.58 M/UL HEMOGLOBIN (test code = 1003) 14.2 G/DL HEMATOCRIT (test code = 1004) 42.7 % MCV (test code = 1005) 93.2 fL MCH (test code = 1006) 31.0 PG MCHC (test code = 1007) 33.3 G/DL RDW (test code = 1038) 12.1 % NEUTROPHILS (test code = 1008) 63.3 % LYMPHOCYTES (test code = 1010) 27.0 % MONOCYTES (test code = 1011) 6.8 % EOSINOPHILS (test code = 1012) 2.3 % BASOPHILS (test code = 1013) 0.6 % PLATELET COUNT (test code = 1015) 363 K/UL HEMOGLOBIN [id number] 00:00:00 Test Item Value Reference Range Interpretation Comments HEMOGLOBIN A1c (test code = 07896) 5.5 % HEMOGLOBIN [id number] 00:00:00 Test Item Value Reference Range Interpretation Comments HEMOGLOBIN A1c (test code = 75070) 5.5 % HEMOGLOBIN [id number] 00:00:00 Test Item Value Reference Range Interpretation Comments HEMOGLOBIN A1c (test code = 50529) 5.5 % COMPREHENSIVE METABOLIC [id number] 00:00:00 Test Item Value Reference Range Interpretation Comments GLUCOSE (test code = 2217) 92 MG/DL BUN (test code = 2208) 16 MG/DL CREATININE (test code = 2214) 0.70 MG/DL eGFR AMER. (test code 123 ML/MIN/1.73 = 50450) eGFR NON- AMER. (test 106 ML/MIN/1.73 code = 40214) CALC BUN/CREAT (test code = 23 RATIO 2235) SODIUM (test code = 2231) 136 MEQ/L POTASSIUM (test code = 2228) 4.6 MEQ/L CHLORIDE (test code = 2215) 101 MEQ/L CARBON DIOXIDE (test code = 24 MEQ/L 2206) CALCIUM (test code = 2209) 9.7 MG/DL PROTEIN, TOTAL (test code = 8.4 G/DL 2228) ALBUMIN (test code = 2201) 4.8 G/DL CALC GLOBULIN (test code = 3.6 G/DL 2240) CALC A/G RATIO (test code = 1.3 RATIO 2234) BILIRUBIN, TOTAL (test code = 0.9 MG/DL 2206) ALKALINE PHOSPHATASE (test 73 U/L code = 2204) AST (test code = 2218) 16 U/L ALT (test code = 2219) 16 U/L COMPREHENSIVE METABOLIC [id number] 00:00:00 Test Item Value Reference Range Interpretation Comments GLUCOSE (test code = 2217) 92 MG/DL BUN (test code = 2208) 16 MG/DL CREATININE (test code = 2214) 0.70 MG/DL eGFR AMER. (test code 123 ML/MIN/1.73 = 79001) eGFR NON- AMER. (test 106 ML/MIN/1.73 code = 73167) CALC BUN/CREAT (test code = 23 RATIO 2235) SODIUM (test code = 2231) 136 MEQ/L POTASSIUM (test code = 2228) 4.6 MEQ/L CHLORIDE (test code = 2215) 101 MEQ/L CARBON DIOXIDE (test code = 24 MEQ/L 2205) CALCIUM (test code = 2209) 9.7 MG/DL PROTEIN, TOTAL (test code = 8.4 G/DL 2228) ALBUMIN (test code = 2201) 4.8 G/DL CALC GLOBULIN (test code = 3.6 G/DL 224) CALC A/G RATIO (test code = 1.3 RATIO 2234) BILIRUBIN, TOTAL (test code = 0.9 MG/DL 2206) ALKALINE PHOSPHATASE (test 73 U/L code = 2204) AST (test code = 2218) 16 U/L ALT (test code = 2219) 16 U/L LIPID [id number] 00:00:00 Test Item Value Reference Range Interpretation Comments CHOLESTEROL (test code = 2210) 177 MG/DL TRIGLYCERIDES (test code = 2232) 94 MG/DL HDL CHOLESTEROL (test code = 2220) 47 MG/DL CALC LDL CHOL (test code = 2237) 110 MG/DL RISK RATIO LDL/HDL (test code = 2.34 RATIO 2238) LIPID [id number] 00:00:00 Test Item Value Reference Range Interpretation Comments CHOLESTEROL (test code = 2210) 177 MG/DL TRIGLYCERIDES (test code = 2232) 94 MG/DL HDL CHOLESTEROL (test code = 2220) 47 MG/DL CALC LDL CHOL (test code = 2237) 110 MG/DL RISK RATIO LDL/HDL (test code = 2.34 RATIO 2238) CBC W/AUTO [id number] 00:00:00 Test Item Value Reference Range Interpretation Comments WBC (test code = 1001) 8.4 K/UL RBC (test code = 1002) 4.58 M/UL HEMOGLOBIN (test code = 1003) 14.2 G/DL HEMATOCRIT (test code = 1004) 42.7 % MCV (test code = 1005) 93.2 fL MCH (test code = 1006) 31.0 PG MCHC (test code = 1007) 33.3 G/DL RDW (test code = 1038) 12.1 % NEUTROPHILS (test code = 1008) 63.3 % LYMPHOCYTES (test code = 1010) 27.0 % MONOCYTES (test code = 1011) 6.8 % EOSINOPHILS (test code = 1012) 2.3 % BASOPHILS (test code = 1013) 0.6 % PLATELET COUNT (test code = 1015) 363 K/UL CBC W/AUTO [id number] 00:00:00 Test Item Value Reference Range Interpretation Comments WBC (test code = 1001) 8.4 K/UL RBC (test code = 1002) 4.58 M/UL HEMOGLOBIN (test code = 1003) 14.2 G/DL HEMATOCRIT (test code = 1004) 42.7 % MCV (test code = 1005) 93.2 fL MCH (test code = 1006) 31.0 PG MCHC (test code = 1007) 33.3 G/DL RDW (test code = 1038) 12.1 % NEUTROPHILS (test code = 1008) 63.3 % LYMPHOCYTES (test code = 1010) 27.0 % MONOCYTES (test code = 1011) 6.8 % EOSINOPHILS (test code = 1012) 2.3 % BASOPHILS (test code = 1013) 0.6 % PLATELET COUNT (test code = 1015) 363 K/UL CBC W/AUTO [id number] 00:00:00 Test Item Value Reference Range Interpretation Comments WBC (test code = 1001) 8.4 K/UL RBC (test code = 1002) 4.58 M/UL HEMOGLOBIN (test code = 1003) 14.2 G/DL HEMATOCRIT (test code = 1004) 42.7 % MCV (test code = 1005) 93.2 fL MCH (test code = 1006) 31.0 PG MCHC (test code = 1007) 33.3 G/DL RDW (test code = 1038) 12.1 % NEUTROPHILS (test code = 1008) 63.3 % LYMPHOCYTES (test code = 1010) 27.0 % MONOCYTES (test code = 1011) 6.8 % EOSINOPHILS (test code = 1012) 2.3 % BASOPHILS (test code = 1013) 0.6 % PLATELET COUNT (test code = 1015) 363 K/UL HEMOGLOBIN [id number] 00:00:00 Test Item Value Reference Range Interpretation Comments HEMOGLOBIN A1c (test code = 99149) 5.5 % HEMOGLOBIN [id number] 00:00:00 Test Item Value Reference Range Interpretation Comments HEMOGLOBIN A1c (test code = 37309) 5.5 % HEMOGLOBIN [id number] 00:00:00 Test Item Value Reference Range Interpretation Comments HEMOGLOBIN A1c (test code = 97692) 5.5 % COMPREHENSIVE METABOLIC [id number] 00:00:00 Test Item Value Reference Range Interpretation Comments GLUCOSE (test code = 2217) 92 MG/DL BUN (test code = 2208) 16 MG/DL CREATININE (test code = 2214) 0.70 MG/DL eGFR AMER. (test code 123 ML/MIN/1.73 = 38716) eGFR NON- AMER. (test 106 ML/MIN/1.73 code = 90226) CALC BUN/CREAT (test code = 23 RATIO 2235) SODIUM (test code = 2231) 136 MEQ/L POTASSIUM (test code = 2228) 4.6 MEQ/L CHLORIDE (test code = 2215) 101 MEQ/L CARBON DIOXIDE (test code = 24 MEQ/L 6) CALCIUM (test code = 2209) 9.7 MG/DL PROTEIN, TOTAL (test code = 8.4 G/DL 2228) ALBUMIN (test code = 2201) 4.8 G/DL CALC GLOBULIN (test code = 3.6 G/DL 2240) CALC A/G RATIO (test code = 1.3 RATIO 2234) BILIRUBIN, TOTAL (test code = 0.9 MG/DL 2206) ALKALINE PHOSPHATASE (test 73 U/L code = 2204) AST (test code = 2218) 16 U/L ALT (test code = 2219) 16 U/L COMPREHENSIVE METABOLIC [id number] 00:00:00 Test Item Value Reference Range Interpretation Comments GLUCOSE (test code = 2217) 92 MG/DL BUN (test code = 2208) 16 MG/DL CREATININE (test code = 2214) 0.70 MG/DL eGFR AMER. (test code 123 ML/MIN/1.73 = 65663) eGFR NON- AMER. (test 106 ML/MIN/1.73 code = 65442) CALC BUN/CREAT (test code = 23 RATIO 2235) SODIUM (test code = 2231) 136 MEQ/L POTASSIUM (test code = 2228) 4.6 MEQ/L CHLORIDE (test code = 2215) 101 MEQ/L CARBON DIOXIDE (test code = 24 MEQ/L 2205) CALCIUM (test code = 2209) 9.7 MG/DL PROTEIN, TOTAL (test code = 8.4 G/DL 2228) ALBUMIN (test code = 2201) 4.8 G/DL CALC GLOBULIN (test code = 3.6 G/DL 0) CALC A/G RATIO (test code = 1.3 RATIO 2234) BILIRUBIN, TOTAL (test code = 0.9 MG/DL 2206) ALKALINE PHOSPHATASE (test 73 U/L code = 2204) AST (test code = 2218) 16 U/L ALT (test code = 2219) 16 U/L LIPID [id number] 00:00:00 Test Item Value Reference Range Interpretation Comments CHOLESTEROL (test code = 2210) 177 MG/DL TRIGLYCERIDES (test code = 2232) 94 MG/DL HDL CHOLESTEROL (test code = 2220) 47 MG/DL CALC LDL CHOL (test code = 2237) 110 MG/DL RISK RATIO LDL/HDL (test code = 2.34 RATIO 2238) LIPID [id number] 00:00:00 Test Item Value Reference Range Interpretation Comments CHOLESTEROL (test code = 2210) 177 MG/DL TRIGLYCERIDES (test code = 2232) 94 MG/DL HDL CHOLESTEROL (test code = 2220) 47 MG/DL CALC LDL CHOL (test code = 2237) 110 MG/DL RISK RATIO LDL/HDL (test code = 2.34 RATIO 2238) CBC W/AUTO [id number] 00:00:00 Test Item Value Reference Range Interpretation Comments WBC (test code = 1001) 8.4 K/UL RBC (test code = 1002) 4.58 M/UL HEMOGLOBIN (test code = 1003) 14.2 G/DL HEMATOCRIT (test code = 1004) 42.7 % MCV (test code = 1005) 93.2 fL MCH (test code = 1006) 31.0 PG MCHC (test code = 1007) 33.3 G/DL RDW (test code = 1038) 12.1 % NEUTROPHILS (test code = 1008) 63.3 % LYMPHOCYTES (test code = 1010) 27.0 % MONOCYTES (test code = 1011) 6.8 % EOSINOPHILS (test code = 1012) 2.3 % BASOPHILS (test code = 1013) 0.6 % PLATELET COUNT (test code = 1015) 363 K/UL CBC W/AUTO [id number] 00:00:00 Test Item Value Reference Range Interpretation Comments WBC (test code = 1001) 8.4 K/UL RBC (test code = 1002) 4.58 M/UL HEMOGLOBIN (test code = 1003) 14.2 G/DL HEMATOCRIT (test code = 1004) 42.7 % MCV (test code = 1005) 93.2 fL MCH (test code = 1006) 31.0 PG MCHC (test code = 1007) 33.3 G/DL RDW (test code = 1038) 12.1 % NEUTROPHILS (test code = 1008) 63.3 % LYMPHOCYTES (test code = 1010) 27.0 % MONOCYTES (test code = 1011) 6.8 % EOSINOPHILS (test code = 1012) 2.3 % BASOPHILS (test code = 1013) 0.6 % PLATELET COUNT (test code = 1015) 363 K/UL CBC W/AUTO [id number] 00:00:00 Test Item Value Reference Range Interpretation Comments WBC (test code = 1001) 8.4 K/UL RBC (test code = 1002) 4.58 M/UL HEMOGLOBIN (test code = 1003) 14.2 G/DL HEMATOCRIT (test code = 1004) 42.7 % MCV (test code = 1005) 93.2 fL MCH (test code = 1006) 31.0 PG MCHC (test code = 1007) 33.3 G/DL RDW (test code = 1038) 12.1 % NEUTROPHILS (test code = 1008) 63.3 % LYMPHOCYTES (test code = 1010) 27.0 % MONOCYTES (test code = 1011) 6.8 % EOSINOPHILS (test code = 1012) 2.3 % BASOPHILS (test code = 1013) 0.6 % PLATELET COUNT (test code = 1015) 363 K/UL HEMOGLOBIN [id number] 00:00:00 Test Item Value Reference Range Interpretation Comments HEMOGLOBIN A1c (test code = 44360) 5.5 % HEMOGLOBIN [id number] 00:00:00 Test Item Value Reference Range Interpretation Comments HEMOGLOBIN A1c (test code = 24042) 5.5 % HEMOGLOBIN [id number] 00:00:00 Test Item Value Reference Range Interpretation Comments HEMOGLOBIN A1c (test code = 53197) 5.5 % COMPREHENSIVE METABOLIC [id number] 00:00:00 Test Item Value Reference Range Interpretation Comments GLUCOSE (test code = 2217) 92 MG/DL BUN (test code = 2208) 16 MG/DL CREATININE (test code = 2214) 0.70 MG/DL eGFR AMER. (test code 123 ML/MIN/1.73 = 83277) eGFR NON- AMER. (test 106 ML/MIN/1.73 code = 26089) CALC BUN/CREAT (test code = 23 RATIO 2235) SODIUM (test code = 2231) 136 MEQ/L POTASSIUM (test code = 2228) 4.6 MEQ/L CHLORIDE (test code = 2215) 101 MEQ/L CARBON DIOXIDE (test code = 24 MEQ/L 220) CALCIUM (test code = 2209) 9.7 MG/DL PROTEIN, TOTAL (test code = 8.4 G/DL 2228) ALBUMIN (test code = 2201) 4.8 G/DL CALC GLOBULIN (test code = 3.6 G/DL 2240) CALC A/G RATIO (test code = 1.3 RATIO 2234) BILIRUBIN, TOTAL (test code = 0.9 MG/DL 2206) ALKALINE PHOSPHATASE (test 73 U/L code = 2204) AST (test code = 2218) 16 U/L ALT (test code = 2219) 16 U/L COMPREHENSIVE METABOLIC [id number] 00:00:00 Test Item Value Reference Range Interpretation Comments GLUCOSE (test code = 2217) 92 MG/DL BUN (test code = 2208) 16 MG/DL CREATININE (test code = 2214) 0.70 MG/DL eGFR AMER. (test code 123 ML/MIN/1.73 = 53363) eGFR NON- AMER. (test 106 ML/MIN/1.73 code = 88728) CALC BUN/CREAT (test code = 23 RATIO 2235) SODIUM (test code = 2231) 136 MEQ/L POTASSIUM (test code = 2228) 4.6 MEQ/L CHLORIDE (test code = 2215) 101 MEQ/L CARBON DIOXIDE (test code = 24 MEQ/L 220) CALCIUM (test code = 2209) 9.7 MG/DL PROTEIN, TOTAL (test code = 8.4 G/DL 2229) ALBUMIN (test code = 2201) 4.8 G/DL CALC GLOBULIN (test code = 3.6 G/DL 2240) CALC A/G RATIO (test code = 1.3 RATIO 2234) BILIRUBIN, TOTAL (test code = 0.9 MG/DL 2207) ALKALINE PHOSPHATASE (test 73 U/L code = 2204) AST (test code = 2218) 16 U/L ALT (test code = 2219) 16 U/L LIPID [id number] 00:00:00 Test Item Value Reference Range Interpretation Comments CHOLESTEROL (test code = 2210) 177 MG/DL TRIGLYCERIDES (test code = 2232) 94 MG/DL HDL CHOLESTEROL (test code = 2220) 47 MG/DL CALC LDL CHOL (test code = 2237) 110 MG/DL RISK RATIO LDL/HDL (test code = 2.34 RATIO 2238) LIPID [id number] 00:00:00 Test Item Value Reference Range Interpretation Comments CHOLESTEROL (test code = 2210) 177 MG/DL TRIGLYCERIDES (test code = 2232) 94 MG/DL HDL CHOLESTEROL (test code = 2220) 47 MG/DL CALC LDL CHOL (test code = 2237) 110 MG/DL RISK RATIO LDL/HDL (test code = 2.34 RATIO 2238) VAGINAL PATHOGENS DNA [id number] 00:00:00 Test Item Value Reference Range Interpretation Comments KATHY SPECIES (test code = 17631) NEGATIVE G. VAGINALIS (test code = 97316) POSITIVE T. VAGINALIS (test code = 81420) NEGATIVE VAGINAL PATHOGENS DNA [id number] 00:00:00 Test Item Value Reference Range Interpretation Comments KATHY SPECIES (test code = 87861) NEGATIVE G. VAGINALIS (test code = 42962) POSITIVE T. VAGINALIS (test code = 59569) NEGATIVE VAGINAL PATHOGENS DNA [id number] 00:00:00 Test Item Value Reference Range Interpretation Comments KATHY SPECIES (test code = 77810) NEGATIVE G. VAGINALIS (test code = 62497) POSITIVE T. VAGINALIS (test code = 74683) NEGATIVE VAGINAL PATHOGENS DNA [id number] 00:00:00 Test Item Value Reference Range Interpretation Comments KATHY SPECIES (test code = 86885) NEGATIVE G. VAGINALIS (test code = 86140) POSITIVE T. VAGINALIS (test code = ) NEGATIVE VAGINAL PATHOGENS DNA [id number] 00:00:00 Test Item Value Reference Range Interpretation Comments KATHY SPECIES (test code = 98018) NEGATIVE G. VAGINALIS (test code = 40411) POSITIVE T. VAGINALIS (test code = 88110) NEGATIVE VAGINAL PATHOGENS DNA [id number] 00:00:00 Test Item Value Reference Range Interpretation Comments KATHY SPECIES (test code = 87358) NEGATIVE G. VAGINALIS (test code = 79481) POSITIVE T. VAGINALIS (test code = 71774) NEGATIVE VAGINAL PATHOGENS DNA [id number] 00:00:00 Test Item Value Reference Range Interpretation Comments KATHY SPECIES (test code = 51428) NEGATIVE G. VAGINALIS (test code = 20663) POSITIVE T. VAGINALIS (test code = 27261) NEGATIVE VAGINAL PATHOGENS DNA [id number] 00:00:00 Test Item Value Reference Range Interpretation Comments KATHY SPECIES (test code = 42653) NEGATIVE G. VAGINALIS (test code = 34157) POSITIVE T. VAGINALIS (test code = 50038) NEGATIVE SCR MAMM BILATERAL MANISH CAD [id number] 11:41:14 - SCR MAMM BILATERAL MANISH CAD DIGITALBILATERAL DIGITAL SCREENING MAMMOGRAM 3D/2D WITH CAD: 07/21/2019 CLINICAL: Asymptomatic. Digital breast tomosynthesis was performed in addition to routine CC and MLOviews. Current mammographic images were evaluated by either a [employer] M-Vu or a [employer] ImageChecker CAD (computer aided detection system). No [...] 11:41:14 Attending Technologist: Stefani Nicholson MM, [facility] MammographyImaging Technologist: Layne Alcantara MM, [facility] Mammographyletter sent: BIRADS 1-2 Normal Mammogram BI-RADS: 1 Negative HCV RNA, PCR [id number] 00:00:00 Test Item Value Reference Range Interpretation Comments HCV RNA, PCR QUANT (test code 2996847 IU/ML = 4571) HCV VIRAL LOG (test code = 6.009 LOGIU/ML 45419) HCV RNA, PCR [id number] 00:00:00 Test Item Value Reference Range Interpretation Comments HCV RNA, PCR QUANT (test code 1402553 IU/ML = 4571) HCV VIRAL LOG (test code = 6.009 LOGIU/ML 22983) HCV RNA, PCR [id number] 00:00:00 Test Item Value Reference Range Interpretation Comments HCV RNA, PCR QUANT (test code 3318965 IU/ML = 4571) HCV VIRAL LOG (test code = 6.009 LOGIU/ML 78738) HCV RNA, PCR [id number] 00:00:00 Test Item Value Reference Range Interpretation Comments HCV RNA, PCR QUANT (test code 3329237 IU/ML = 4571) HCV VIRAL LOG (test code = 6.009 LOGIU/ML 06434) HCV RNA, PCR [id number] 00:00:00 Test Item Value Reference Range Interpretation Comments HCV RNA, PCR QUANT (test code 6797956 IU/ML = 4571) HCV VIRAL LOG (test code = 6.009 LOGIU/ML 96798) HCV RNA, PCR [id number] 00:00:00 Test Item Value Reference Range Interpretation Comments HCV RNA, PCR QUANT (test code 7833172 IU/ML = 4571) HCV VIRAL LOG (test code = 6.009 LOGIU/ML 04252) HCV RNA, PCR [id number] 00:00:00 Test Item Value Reference Range Interpretation Comments HCV RNA, PCR QUANT (test code 8070526 IU/ML = 4571) HCV VIRAL LOG (test code = 6.009 LOGIU/ML 41156) HCV RNA, PCR [id number] 00:00:00 Test Item Value Reference Range Interpretation Comments HCV RNA, PCR QUANT (test code 7765966 IU/ML = 4571) HCV VIRAL LOG (test code = 6.009 LOGIU/ML 98564) HCV RNA, PCR [id number] 00:00:00 Test Item Value Reference Range Interpretation Comments HCV RNA, PCR QUANT (test code 8903582 IU/ML = 4571) HCV VIRAL LOG (test code = 6.009 LOGIU/ML 04463) HCV RNA, PCR [id number] 00:00:00 Test Item Value Reference Range Interpretation Comments HCV RNA, PCR QUANT (test code 9253055 IU/ML = 4571) HCV VIRAL LOG (test code = 6.009 LOGIU/ML 47604) HCV RNA, PCR [id number] 00:00:00 Test Item Value Reference Range Interpretation Comments HCV RNA, PCR QUANT (test code 2288839 IU/ML = 4571) HCV VIRAL LOG (test code = 6.009 LOGIU/ML 94654) HCV RNA, PCR [id number] 00:00:00 Test Item Value Reference Range Interpretation Comments HCV RNA, PCR QUANT (test code 0178460 IU/ML = 4571) HCV VIRAL LOG (test code = 6.009 LOGIU/ML 51565) [id number] 00:00:00 Test Item Value Reference Range Interpretation Comments RPR RESULT (test code = NON-REACTIVE 3501) RPR TITER (test code = 3500) NOT INDIC. TITER [id number] 00:00:00 Test Item Value Reference Range Interpretation Comments RPR RESULT (test code = NON-REACTIVE 3501) RPR TITER (test code = 3500) NOT INDIC. TITER [id number] 00:00:00 Test Item Value Reference Range Interpretation Comments RPR RESULT (test code = NON-REACTIVE 3501) RPR TITER (test code = 3500) NOT INDIC. TITER [id number] 00:00:00 Test Item Value Reference Range Interpretation Comments RPR RESULT (test code = NON-REACTIVE 3501) RPR TITER (test code = 3500) NOT INDIC. TITER [id number] 00:00:00 Test Item Value Reference Range Interpretation Comments RPR RESULT (test code = NON-REACTIVE 3501) RPR TITER (test code = 3500) NOT INDIC. TITER [id number] 00:00:00 Test Item Value Reference Range Interpretation Comments RPR RESULT (test code = NON-REACTIVE 3501) RPR TITER (test code = 3500) NOT INDIC. TITER [id number] 00:00:00 Test Item Value Reference Range Interpretation Comments RPR RESULT (test code = NON-REACTIVE 3501) RPR TITER (test code = 3500) NOT INDIC. TITER [id number] 00:00:00 Test Item Value Reference Range Interpretation Comments RPR RESULT (test code = NON-REACTIVE 3501) RPR TITER (test code = 3500) NOT INDIC. TITER [id number] 00:00:00 Test Item Value Reference Range Interpretation Comments RPR RESULT (test code = NON-REACTIVE 3501) RPR TITER (test code = 3500) NOT INDIC. TITER [id number] 00:00:00 Test Item Value Reference Range Interpretation Comments RPR RESULT (test code = NON-REACTIVE 3501) RPR TITER (test code = 3500) NOT INDIC. TITER [id number] 00:00:00 Test Item Value Reference Range Interpretation Comments RPR RESULT (test code = NON-REACTIVE 3501) RPR TITER (test code = 3500) NOT INDIC. TITER [id number] 00:00:00 Test Item Value Reference Range Interpretation Comments RPR RESULT (test code = NON-REACTIVE 3501) RPR TITER (test code = 3500) NOT INDIC. TITER ACUTE HEPATITIS [id number] 00:00:00 Test Item Value Reference Range Interpretation Comments HEPATITIS A IgM (test code = NON-REACTIVE 14986) HEPATITIS B CORE IgM (test code NON-REACTIVE = 4644) HEPATITIS B SURF AG (test code = NON-REACTIVE 2739) HEPATITIS C ANTIBODY (test code REACTIVE = 4675) HCV INDEX (test code = 87501) 12.45 INTERPRETATION HEPATITIS A: (NOTE) (test code = 2552) INTERPRETATION HEPATITIS B: (NOTE) (test code = 87698) INTERPRETATION HEPATITIS C: (NOTE) (test code = 51908) HIV AB/AG COMBO RFLX [id number] 00:00:00 Test Item Value Reference Range Interpretation Comments HIV 1/2 4TH GEN, RFLX CONF (test NON-REACTIVE code = 3514) HIV AB/AG COMBO RFLX [id number] 00:00:00 Test Item Value Reference Range Interpretation Comments HIV 1/2 4TH GEN, RFLX CONF (test NON-REACTIVE code = 3514) CHLAMYDIA, AMPLIFIED, [id number] 00:00:00 Test Item Value Reference Range Interpretation Comments CHLAMYDIA, TMA (test code = 34662) NEGATIVE CHLAMYDIA, AMPLIFIED, [id number] 00:00:00 Test Item Value Reference Range Interpretation Comments CHLAMYDIA, TMA (test code = 80846) NEGATIVE GC, AMPLIFIED, [id number] 00:00:00 Test Item Value Reference Range Interpretation Comments GONORRHEA, TMA (test code = 44435) NEGATIVE GC, AMPLIFIED, [id number] 00:00:00 Test Item Value Reference Range Interpretation Comments GONORRHEA, TMA (test code = 25554) NEGATIVE [id number] 00:00:00 Test Item Value Reference Range Interpretation Comments TSH, THIRD GENERATION (test code 1.710 UIU/ML = 2821) [id number] 00:00:00 Test Item Value Reference Range Interpretation Comments TSH, THIRD GENERATION (test code 1.710 UIU/ML = 2821) [id number] 00:00:00 Test Item Value Reference Range Interpretation Comments TSH, THIRD GENERATION (test code 1.710 UIU/ML = 2821) ACUTE HEPATITIS [id number] 00:00:00 Test Item Value Reference Range Interpretation Comments HEPATITIS A IgM (test code = NON-REACTIVE 60098) HEPATITIS B CORE IgM (test code NON-REACTIVE = 4644) HEPATITIS B SURF AG (test code = NON-REACTIVE 2739) HEPATITIS C ANTIBODY (test code REACTIVE = 4675) HCV INDEX (test code = 02859) 12.45 INTERPRETATION HEPATITIS A: (NOTE) (test code = 2552) INTERPRETATION HEPATITIS B: (NOTE) (test code = 67049) INTERPRETATION HEPATITIS C: (NOTE) (test code = 68312) ACUTE HEPATITIS [id number] 00:00:00 Test Item Value Reference Range Interpretation Comments HEPATITIS A IgM (test code = NON-REACTIVE 19388) HEPATITIS B CORE IgM (test code NON-REACTIVE = 4644) HEPATITIS B SURF AG (test code = NON-REACTIVE 2739) HEPATITIS C ANTIBODY (test code REACTIVE = 4675) HCV INDEX (test code = 28609) 12.45 INTERPRETATION HEPATITIS A: (NOTE) (test code = 2552) INTERPRETATION HEPATITIS B: (NOTE) (test code = 27578) INTERPRETATION HEPATITIS C: (NOTE) (test code = 89407) HIV AB/AG COMBO RFLX [id number] 00:00:00 Test Item Value Reference Range Interpretation Comments HIV 1/2 4TH GEN, RFLX CONF (test NON-REACTIVE code = 3514) HIV AB/AG COMBO RFLX [id number] 00:00:00 Test Item Value Reference Range Interpretation Comments HIV 1/2 4TH GEN, RFLX CONF (test NON-REACTIVE code = 3514) CHLAMYDIA, AMPLIFIED, [id number] 00:00:00 Test Item Value Reference Range Interpretation Comments CHLAMYDIA, TMA (test code = 64247) NEGATIVE CHLAMYDIA, AMPLIFIED, [id number] 00:00:00 Test Item Value Reference Range Interpretation Comments CHLAMYDIA, TMA (test code = 36976) NEGATIVE GC, AMPLIFIED, [id number] 00:00:00 Test Item Value Reference Range Interpretation Comments GONORRHEA, TMA (test code = 13383) NEGATIVE GC, AMPLIFIED, [id number] 00:00:00 Test Item Value Reference Range Interpretation Comments GONORRHEA, TMA (test code = 43247) NEGATIVE [id number] 00:00:00 Test Item Value Reference Range Interpretation Comments TSH, THIRD GENERATION (test code 1.710 UIU/ML = 2821) [id number] 00:00:00 Test Item Value Reference Range Interpretation Comments TSH, THIRD GENERATION (test code 1.710 UIU/ML = 2821) [id number] 00:00:00 Test Item Value Reference Range Interpretation Comments TSH, THIRD GENERATION (test code 1.710 UIU/ML = 2821) ACUTE HEPATITIS [id number] 00:00:00 Test Item Value Reference Range Interpretation Comments HEPATITIS A IgM (test code = NON-REACTIVE 76013) HEPATITIS B CORE IgM (test code NON-REACTIVE = 4644) HEPATITIS B SURF AG (test code = NON-REACTIVE 9) HEPATITIS C ANTIBODY (test code REACTIVE = 4675) HCV INDEX (test code = 57443) 12.45 INTERPRETATION HEPATITIS A: (NOTE) (test code = 2552) INTERPRETATION HEPATITIS B: (NOTE) (test code = 28951) INTERPRETATION HEPATITIS C: (NOTE) (test code = 46426) ACUTE HEPATITIS [id number] 00:00:00 Test Item Value Reference Range Interpretation Comments HEPATITIS A IgM (test code = NON-REACTIVE 68218) HEPATITIS B CORE IgM (test code NON-REACTIVE = 4644) HEPATITIS B SURF AG (test code = NON-REACTIVE 2739) HEPATITIS C ANTIBODY (test code REACTIVE = 4675) HCV INDEX (test code = 02173) 12.45 INTERPRETATION HEPATITIS A: (NOTE) (test code = 2552) INTERPRETATION HEPATITIS B: (NOTE) (test code = 06954) INTERPRETATION HEPATITIS C: (NOTE) (test code = 47134) HIV AB/AG COMBO RFLX [id number] 00:00:00 Test Item Value Reference Range Interpretation Comments HIV 1/2 4TH GEN, RFLX CONF (test NON-REACTIVE code = 3514) HIV AB/AG COMBO RFLX [id number] 00:00:00 Test Item Value Reference Range Interpretation Comments HIV 1/2 4TH GEN, RFLX CONF (test NON-REACTIVE code = 3514) CHLAMYDIA, AMPLIFIED, [id number] 00:00:00 Test Item Value Reference Range Interpretation Comments CHLAMYDIA, TMA (test code = 75488) NEGATIVE CHLAMYDIA, AMPLIFIED, [id number] 00:00:00 Test Item Value Reference Range Interpretation Comments CHLAMYDIA, TMA (test code = 30920) NEGATIVE GC, AMPLIFIED, [id number] 00:00:00 Test Item Value Reference Range Interpretation Comments GONORRHEA, TMA (test code = 44768) NEGATIVE GC, AMPLIFIED, [id number] 00:00:00 Test Item Value Reference Range Interpretation Comments GONORRHEA, TMA (test code = 23342) NEGATIVE [id number] 00:00:00 Test Item Value Reference Range Interpretation Comments TSH, THIRD GENERATION (test code 1.710 UIU/ML = 2821) [id number] 00:00:00 Test Item Value Reference Range Interpretation Comments TSH, THIRD GENERATION (test code 1.710 UIU/ML = 2821) [id number] 00:00:00 Test Item Value Reference Range Interpretation Comments TSH, THIRD GENERATION (test code 1.710 UIU/ML = 2821) ACUTE HEPATITIS [id number] 00:00:00 Test Item Value Reference Range Interpretation Comments HEPATITIS A IgM (test code = NON-REACTIVE 41975) HEPATITIS B CORE IgM (test code NON-REACTIVE = 4644) HEPATITIS B SURF AG (test code = NON-REACTIVE 2739) HEPATITIS C ANTIBODY (test code REACTIVE = 4675) HCV INDEX (test code = 01982) 12.45 INTERPRETATION HEPATITIS A: (NOTE) (test code = 2552) INTERPRETATION HEPATITIS B: (NOTE) (test code = 32358) INTERPRETATION HEPATITIS C: (NOTE) (test code = 02134) ACUTE HEPATITIS [id number] 00:00:00 Test Item Value Reference Range Interpretation Comments HEPATITIS A IgM (test code = NON-REACTIVE 16741) HEPATITIS B CORE IgM (test code NON-REACTIVE = 4644) HEPATITIS B SURF AG (test code = NON-REACTIVE 2739) HEPATITIS C ANTIBODY (test code REACTIVE = 4675) HCV INDEX (test code = 09848) 45 INTERPRETATION HEPATITIS A: (NOTE) (test code = 2552) INTERPRETATION HEPATITIS B: (NOTE) (test code = 92817) INTERPRETATION HEPATITIS C: (NOTE) (test code = 81857) HIV AB/AG COMBO RFLX [id number] 00:00:00 Test Item Value Reference Range Interpretation Comments HIV 1/2 4TH GEN, RFLX CONF (test NON-REACTIVE code = 3514) HIV AB/AG COMBO RFLX [id number] 00:00:00 Test Item Value Reference Range Interpretation Comments HIV 1/2 4TH GEN, RFLX CONF (test NON-REACTIVE code = 3514) CHLAMYDIA, AMPLIFIED, [id number] 00:00:00 Test Item Value Reference Range Interpretation Comments CHLAMYDIA, TMA (test code = 75392) NEGATIVE CHLAMYDIA, AMPLIFIED, [id number] 00:00:00 Test Item Value Reference Range Interpretation Comments CHLAMYDIA, TMA (test code = 93351) NEGATIVE GC, AMPLIFIED, [id number] 00:00:00 Test Item Value Reference Range Interpretation Comments GONORRHEA, TMA (test code = 35972) NEGATIVE GC, AMPLIFIED, [id number] 00:00:00 Test Item Value Reference Range Interpretation Comments GONORRHEA, TMA (test code = 50285) NEGATIVE [id number] 00:00:00 Test Item Value Reference Range Interpretation Comments TSH, THIRD GENERATION (test code 1.710 UIU/ML = 2821) [id number] 00:00:00 Test Item Value Reference Range Interpretation Comments TSH, THIRD GENERATION (test code 1.710 UIU/ML = 2821) [id number] 00:00:00 Test Item Value Reference Range Interpretation Comments TSH, THIRD GENERATION (test code 1.710 UIU/ML = 2821) ACUTE HEPATITIS [id number] 00:00:00 Test Item Value Reference Range Interpretation Comments HEPATITIS A IgM (test code = NON-REACTIVE 76779) HEPATITIS B CORE IgM (test code NON-REACTIVE = 4644) HEPATITIS B SURF AG (test code = NON-REACTIVE 2739) HEPATITIS C ANTIBODY (test code REACTIVE = 4675) HCV INDEX (test code = 37230) 12.45 INTERPRETATION HEPATITIS A: (NOTE) (test code = 2552) INTERPRETATION HEPATITIS B: (NOTE) (test code = 77042) INTERPRETATION HEPATITIS C: (NOTE) (test code = 75727) LIPID [id number] 00:00:00 Test Item Value Reference Range Interpretation Comments CHOLESTEROL (test code = 2210) 139 MG/DL TRIGLYCERIDES (test code = 2232) 99 MG/DL HDL CHOLESTEROL (test code = 2220) 44 MG/DL CALC LDL CHOL (test code = 2237) 75 MG/DL RISK RATIO LDL/HDL (test code = 1.71 RATIO 2238) LIPID [id number] 00:00:00 Test Item Value Reference Range Interpretation Comments CHOLESTEROL (test code = 2210) 139 MG/DL TRIGLYCERIDES (test code = 2232) 99 MG/DL HDL CHOLESTEROL (test code = 2220) 44 MG/DL CALC LDL CHOL (test code = 2237) 75 MG/DL RISK RATIO LDL/HDL (test code = 1.71 RATIO 2238) HEMOGLOBIN [id number] 00:00:00 Test Item Value Reference Range Interpretation Comments HEMOGLOBIN A1c (test code = 60746) 5.7 % HEMOGLOBIN [id number] 00:00:00 Test Item Value Reference Range Interpretation Comments HEMOGLOBIN A1c (test code = 07256) 5.7 % HEMOGLOBIN [id number] 00:00:00 Test Item Value Reference Range Interpretation Comments HEMOGLOBIN A1c (test code = 88632) 5.7 % COMPREHENSIVE METABOLIC [id number] 00:00:00 Test Item Value Reference Range Interpretation Comments GLUCOSE (test code = 2217) 98 MG/DL BUN (test code = 2208) 13 MG/DL CREATININE (test code = 2214) 0.67 MG/DL eGFR AMER. (test code 127 ML/MIN/1.73 = 66241) eGFR NON- AMER. (test 109 ML/MIN/1.73 code = 28559) CALC BUN/CREAT (test code = 19 RATIO 2235) SODIUM (test code = 2231) 140 MEQ/L POTASSIUM (test code = 2228) 4.5 MEQ/L CHLORIDE (test code = 2215) 105 MEQ/L CARBON DIOXIDE (test code = 21 MEQ/L 2206) CALCIUM (test code = 2209) 9.7 MG/DL PROTEIN, TOTAL (test code = 7.6 G/DL 222) ALBUMIN (test code = 2201) 4.2 G/DL CALC GLOBULIN (test code = 3.4 G/DL 2240) CALC A/G RATIO (test code = 1.2 RATIO 2234) BILIRUBIN, TOTAL (test code = 0.7 MG/DL 2206) ALKALINE PHOSPHATASE (test 73 U/L code = 220) AST (test code = 2218) 24 U/L ALT (test code = 2219) 51 U/L COMPREHENSIVE METABOLIC [id number] 00:00:00 Test Item Value Reference Range Interpretation Comments GLUCOSE (test code = 2217) 98 MG/DL BUN (test code = 2208) 13 MG/DL CREATININE (test code = 2214) 0.67 MG/DL eGFR AMER. (test code 127 ML/MIN/1.73 = 79721) eGFR NON- AMER. (test 109 ML/MIN/1.73 code = 20995) CALC BUN/CREAT (test code = 19 RATIO 2235) SODIUM (test code = 2231) 140 MEQ/L POTASSIUM (test code = 2228) 4.5 MEQ/L CHLORIDE (test code = 2215) 105 MEQ/L CARBON DIOXIDE (test code = 21 MEQ/L 2206) CALCIUM (test code = 2209) 9.7 MG/DL PROTEIN, TOTAL (test code = 7.6 G/DL 222) ALBUMIN (test code = 2201) 4.2 G/DL CALC GLOBULIN (test code = 3.4 G/DL 2240) CALC A/G RATIO (test code = 1.2 RATIO 2234) BILIRUBIN, TOTAL (test code = 0.7 MG/DL 2206) ALKALINE PHOSPHATASE (test 73 U/L code = 2204) AST (test code = 2218) 24 U/L ALT (test code = 2219) 51 U/L LIPID [id number] 00:00:00 Test Item Value Reference Range Interpretation Comments CHOLESTEROL (test code = 2210) 139 MG/DL TRIGLYCERIDES (test code = 2232) 99 MG/DL HDL CHOLESTEROL (test code = 2220) 44 MG/DL CALC LDL CHOL (test code = 2237) 75 MG/DL RISK RATIO LDL/HDL (test code = 1.71 RATIO 2238) LIPID [id number] 00:00:00 Test Item Value Reference Range Interpretation Comments CHOLESTEROL (test code = 2210) 139 MG/DL TRIGLYCERIDES (test code = 2232) 99 MG/DL HDL CHOLESTEROL (test code = 2220) 44 MG/DL CALC LDL CHOL (test code = 2237) 75 MG/DL RISK RATIO LDL/HDL (test code = 1.71 RATIO 2238) LIPID [id number] 00:00:00 Test Item Value Reference Range Interpretation Comments CHOLESTEROL (test code = 2210) 139 MG/DL TRIGLYCERIDES (test code = 2232) 99 MG/DL HDL CHOLESTEROL (test code = 2220) 44 MG/DL CALC LDL CHOL (test code = 2237) 75 MG/DL RISK RATIO LDL/HDL (test code = 1.71 RATIO 2238) HEMOGLOBIN [id number] 00:00:00 Test Item Value Reference Range Interpretation Comments HEMOGLOBIN A1c (test code = 19591) 5.7 % HEMOGLOBIN [id number] 00:00:00 Test Item Value Reference Range Interpretation Comments HEMOGLOBIN A1c (test code = 46655) 5.7 % HEMOGLOBIN [id number] 00:00:00 Test Item Value Reference Range Interpretation Comments HEMOGLOBIN A1c (test code = 33246) 5.7 % COMPREHENSIVE METABOLIC [id number] 00:00:00 Test Item Value Reference Range Interpretation Comments GLUCOSE (test code = 2217) 98 MG/DL BUN (test code = 2208) 13 MG/DL CREATININE (test code = 2214) 0.67 MG/DL eGFR AMER. (test code 127 ML/MIN/1.73 = 83183) eGFR NON- AMER. (test 109 ML/MIN/1.73 code = 08991) CALC BUN/CREAT (test code = 19 RATIO 2235) SODIUM (test code = 2231) 140 MEQ/L POTASSIUM (test code = 2228) 4.5 MEQ/L CHLORIDE (test code = 2215) 105 MEQ/L CARBON DIOXIDE (test code = 21 MEQ/L 220) CALCIUM (test code = 2209) 9.7 MG/DL PROTEIN, TOTAL (test code = 7.6 G/DL 2228) ALBUMIN (test code = 2201) 4.2 G/DL CALC GLOBULIN (test code = 3.4 G/DL 2240) CALC A/G RATIO (test code = 1.2 RATIO 2234) BILIRUBIN, TOTAL (test code = 0.7 MG/DL 2206) ALKALINE PHOSPHATASE (test 73 U/L code = 2204) AST (test code = 2218) 24 U/L ALT (test code = 2219) 51 U/L COMPREHENSIVE METABOLIC [id number] 00:00:00 Test Item Value Reference Range Interpretation Comments GLUCOSE (test code = 2217) 98 MG/DL BUN (test code = 2208) 13 MG/DL CREATININE (test code = 2214) 0.67 MG/DL eGFR AMER. (test code 127 ML/MIN/1.73 = 24459) eGFR NON- AMER. (test 109 ML/MIN/1.73 code = 04306) CALC BUN/CREAT (test code = 19 RATIO 2235) SODIUM (test code = 2231) 140 MEQ/L POTASSIUM (test code = 2228) 4.5 MEQ/L CHLORIDE (test code = 2215) 105 MEQ/L CARBON DIOXIDE (test code = 21 MEQ/L 2205) CALCIUM (test code = 2209) 9.7 MG/DL PROTEIN, TOTAL (test code = 7.6 G/DL 2228) ALBUMIN (test code = 2201) 4.2 G/DL CALC GLOBULIN (test code = 3.4 G/DL 2240) CALC A/G RATIO (test code = 1.2 RATIO 2234) BILIRUBIN, TOTAL (test code = 0.7 MG/DL 2206) ALKALINE PHOSPHATASE (test 73 U/L code = 2204) AST (test code = 2218) 24 U/L ALT (test code = 2219) 51 U/L LIPID [id number] 00:00:00 Test Item Value Reference Range Interpretation Comments CHOLESTEROL (test code = 2210) 139 MG/DL TRIGLYCERIDES (test code = 2232) 99 MG/DL HDL CHOLESTEROL (test code = 2220) 44 MG/DL CALC LDL CHOL (test code = 2237) 75 MG/DL RISK RATIO LDL/HDL (test code = 1.71 RATIO 2238) HEMOGLOBIN [id number] 00:00:00 Test Item Value Reference Range Interpretation Comments HEMOGLOBIN A1c (test code = 59636) 5.7 % LIPID [id number] 00:00:00 Test Item Value Reference Range Interpretation Comments CHOLESTEROL (test code = 2210) 139 MG/DL TRIGLYCERIDES (test code = 2232) 99 MG/DL HDL CHOLESTEROL (test code = 2220) 44 MG/DL CALC LDL CHOL (test code = 2237) 75 MG/DL RISK RATIO LDL/HDL (test code = 1.71 RATIO 2238) LIPID [id number] 00:00:00 Test Item Value Reference Range Interpretation Comments CHOLESTEROL (test code = 2210) 139 MG/DL TRIGLYCERIDES (test code = 2232) 99 MG/DL HDL CHOLESTEROL (test code = 2220) 44 MG/DL CALC LDL CHOL (test code = 2237) 75 MG/DL RISK RATIO LDL/HDL (test code = 1.71 RATIO 2238) HEMOGLOBIN [id number] 00:00:00 Test Item Value Reference Range Interpretation Comments HEMOGLOBIN A1c (test code = 00029) 5.7 % HEMOGLOBIN [id number] 00:00:00 Test Item Value Reference Range Interpretation Comments HEMOGLOBIN A1c (test code = 82604) 5.7 % HEMOGLOBIN [id number] 00:00:00 Test Item Value Reference Range Interpretation Comments HEMOGLOBIN A1c (test code = 47877) 5.7 % COMPREHENSIVE METABOLIC [id number] 00:00:00 Test Item Value Reference Range Interpretation Comments GLUCOSE (test code = 2217) 98 MG/DL BUN (test code = 2208) 13 MG/DL CREATININE (test code = 2214) 0.67 MG/DL eGFR AMER. (test code 127 ML/MIN/1.73 = 49934) eGFR NON- AMER. (test 109 ML/MIN/1.73 code = 86945) CALC BUN/CREAT (test code = 19 RATIO 2235) SODIUM (test code = 2231) 140 MEQ/L POTASSIUM (test code = 2228) 4.5 MEQ/L CHLORIDE (test code = 2215) 105 MEQ/L CARBON DIOXIDE (test code = 21 MEQ/L 2205) CALCIUM (test code = 2209) 9.7 MG/DL PROTEIN, TOTAL (test code = 7.6 G/DL 2228) ALBUMIN (test code = 2201) 4.2 G/DL CALC GLOBULIN (test code = 3.4 G/DL 2240) CALC A/G RATIO (test code = 1.2 RATIO 2234) BILIRUBIN, TOTAL (test code = 0.7 MG/DL 2206) ALKALINE PHOSPHATASE (test 73 U/L code = 2204) AST (test code = 2218) 24 U/L ALT (test code = 2219) 51 U/L COMPREHENSIVE METABOLIC [id number] 00:00:00 Test Item Value Reference Range Interpretation Comments GLUCOSE (test code = 2217) 98 MG/DL BUN (test code = 2208) 13 MG/DL CREATININE (test code = 2214) 0.67 MG/DL eGFR AMER. (test code 127 ML/MIN/1.73 = 60112) eGFR NON- AMER. (test 109 ML/MIN/1.73 code = 45458) CALC BUN/CREAT (test code = 19 RATIO 2235) SODIUM (test code = 2231) 140 MEQ/L POTASSIUM (test code = 2228) 4.5 MEQ/L CHLORIDE (test code = 2215) 105 MEQ/L CARBON DIOXIDE (test code = 21 MEQ/L 2205) CALCIUM (test code = 2209) 9.7 MG/DL PROTEIN, TOTAL (test code = 7.6 G/DL 2228) ALBUMIN (test code = 2201) 4.2 G/DL CALC GLOBULIN (test code = 3.4 G/DL 2240) CALC A/G RATIO (test code = 1.2 RATIO 2234) BILIRUBIN, TOTAL (test code = 0.7 MG/DL 2206) ALKALINE PHOSPHATASE (test 73 U/L code = 2204) AST (test code = 2218) 24 U/L ALT (test code = 2219) 51 U/L HEMOGLOBIN [id number] 00:00:00 Test Item Value Reference Range Interpretation Comments HEMOGLOBIN A1c (test code = 03754) 5.7 % HEMOGLOBIN [id number] 00:00:00 Test Item Value Reference Range Interpretation Comments HEMOGLOBIN A1c (test code = 80174) 5.7 % COMPREHENSIVE METABOLIC [id number] 00:00:00 Test Item Value Reference Range Interpretation Comments GLUCOSE (test code = 2217) 98 MG/DL BUN (test code = 2208) 13 MG/DL CREATININE (test code = 2214) 0.67 MG/DL eGFR AMER. (test code 127 ML/MIN/1.73 = 77034) eGFR NON- AMER. (test 109 ML/MIN/1.73 code = 77886) CALC BUN/CREAT (test code = 19 RATIO 2235) SODIUM (test code = 2231) 140 MEQ/L POTASSIUM (test code = 2228) 4.5 MEQ/L CHLORIDE (test code = 2215) 105 MEQ/L CARBON DIOXIDE (test code = 21 MEQ/L 220) CALCIUM (test code = 2209) 9.7 MG/DL PROTEIN, TOTAL (test code = 7.6 G/DL 2228) ALBUMIN (test code = 2201) 4.2 G/DL CALC GLOBULIN (test code = 3.4 G/DL 224) CALC A/G RATIO (test code = 1.2 RATIO 2234) BILIRUBIN, TOTAL (test code = 0.7 MG/DL 2206) ALKALINE PHOSPHATASE (test 73 U/L code = 2204) AST (test code = 2218) 24 U/L ALT (test code = 2219) 51 U/L COMPREHENSIVE METABOLIC [id number] 00:00:00 Test Item Value Reference Range Interpretation Comments GLUCOSE (test code = 2217) 98 MG/DL BUN (test code = 2208) 13 MG/DL CREATININE (test code = 2214) 0.67 MG/DL eGFR AMER. (test code 127 ML/MIN/1.73 = 33197) eGFR NON- AMER. (test 109 ML/MIN/1.73 code = 78754) CALC BUN/CREAT (test code = 19 RATIO 2235) SODIUM (test code = 2231) 140 MEQ/L POTASSIUM (test code = 2228) 4.5 MEQ/L CHLORIDE (test code = 2215) 105 MEQ/L CARBON DIOXIDE (test code = 21 MEQ/L 220) CALCIUM (test code = 2209) 9.7 MG/DL PROTEIN, TOTAL (test code = 7.6 G/DL 2228) ALBUMIN (test code = 2201) 4.2 G/DL CALC GLOBULIN (test code = 3.4 G/DL 2240) CALC A/G RATIO (test code = 1.2 RATIO 2233) BILIRUBIN, TOTAL (test code = 0.7 MG/DL 2206) ALKALINE PHOSPHATASE (test 73 U/L code = 2204) AST (test code = 2218) 24 U/L ALT (test code = 2219) 51 U/L PAP TEST, THINPREP, [id number] 00:00:00 Test Item Value Reference Range Interpretation Comments SOURCE: (test code = Cervical/Endocervical 8001) SLIDES: (test code = 1 8011) LMP: (test code = 12/21/2017 8021) SPECIMEN ADEQUACY: (NOTE) (test code = 64096) INTERPRETATION: (test NO EPITHELIAL code = 87139) ABNORMALITY SEE BELOW OTHER COMMENTS: (test (NOTE) code = 8081) COAL SHOOTER: Catherine (test code = 8101) POLO Lamb(ASCP)IAC LOCATION: (test code (NOTE) = 94968) CPT: (test code = (NOTE) 8140) PAP TEST, THINPREP, [id number] 00:00:00 Test Item Value Reference Range Interpretation Comments SOURCE: (test code = Cervical/Endocervical 8001) SLIDES: (test code = 1 8011) LMP: (test code = 12/21/2017 8021) SPECIMEN ADEQUACY: (NOTE) (test code = 24230) INTERPRETATION: (test NO EPITHELIAL code = 01329) ABNORMALITY SEE BELOW OTHER COMMENTS: (test (NOTE) code = 8081) COAL SHOOTER: Catherine (test code = 8101) POLO Lamb(ASCP)IAC LOCATION: (test code (NOTE) = 17460) CPT: (test code = (NOTE) 8140) HPV HIGH RISK WITH GENOTYPE, [id number] 00:00:00 Test Item Value Reference Range Interpretation Comments HPV HIGH RISK INTERP (test code = NEGATIVE 53868) HPV 16 (test code = 70817) NEGATIVE HPV 18 (test code = 26996) NEGATIVE HPV, HR, OTHER GENOTYPES (test code NEGATIVE = 40390) HPV HIGH RISK WITH GENOTYPE, [id number] 00:00:00 Test Item Value Reference Range Interpretation Comments HPV HIGH RISK INTERP (test code = NEGATIVE 30425) HPV 16 (test code = 39843) NEGATIVE HPV 18 (test code = 95459) NEGATIVE HPV, HR, OTHER GENOTYPES (test code NEGATIVE = 09730) PAP TEST, THINPREP, [id number] 00:00:00 Test Item Value Reference Range Interpretation Comments SOURCE: (test code = Cervical/Endocervical 8001) SLIDES: (test code = 1 8011) LMP: (test code = 12/21/2017 8021) SPECIMEN ADEQUACY: (NOTE) (test code = 27798) INTERPRETATION: (test NO EPITHELIAL code = 67884) ABNORMALITY SEE BELOW OTHER COMMENTS: (test (NOTE) code = 8081) COAL SHOOTER: Catherine (test code = 8101) POLO Lamb(ASCP)IAC LOCATION: (test code (NOTE) = 78835) CPT: (test code = (NOTE) 8140) PAP TEST, THINPREP, [id number] 00:00:00 Test Item Value Reference Range Interpretation Comments SOURCE: (test code = Cervical/Endocervical 8001) SLIDES: (test code = 1 8011) LMP: (test code = 12/21/2017 8021) SPECIMEN ADEQUACY: (NOTE) (test code = 68854) INTERPRETATION: (test NO EPITHELIAL code = 60471) ABNORMALITY SEE BELOW OTHER COMMENTS: (test (NOTE) code = 8081) COAL SHOOTER: Catherine (test code = 8101) POLO Lamb(ASCP)IAC LOCATION: (test code (NOTE) = 64343) CPT: (test code = (NOTE) 8140) PAP TEST, THINPREP, [id number] 00:00:00 Test Item Value Reference Range Interpretation Comments SOURCE: (test code = Cervical/Endocervical 8001) SLIDES: (test code = 1 8011) LMP: (test code = 12/21/2017 8021) SPECIMEN ADEQUACY: (NOTE) (test code = 19504) INTERPRETATION: (test NO EPITHELIAL code = 49244) ABNORMALITY SEE BELOW OTHER COMMENTS: (test (NOTE) code = 8081) COAL SHOOTER: Catherine (test code = 8101) POLO Lamb(ASCP)IAC LOCATION: (test code (NOTE) = 37174) CPT: (test code = (NOTE) 8140) HPV HIGH RISK WITH GENOTYPE, [id number] 00:00:00 Test Item Value Reference Range Interpretation Comments HPV HIGH RISK INTERP (test code = NEGATIVE 06262) HPV 16 (test code = 74208) NEGATIVE HPV 18 (test code = 18143) NEGATIVE HPV, HR, OTHER GENOTYPES (test code NEGATIVE = 88170) HPV HIGH RISK WITH GENOTYPE, [id number] 00:00:00 Test Item Value Reference Range Interpretation Comments HPV HIGH RISK INTERP (test code = NEGATIVE 80197) HPV 16 (test code = 52123) NEGATIVE HPV 18 (test code = 22587) NEGATIVE HPV, HR, OTHER GENOTYPES (test code NEGATIVE = 74697) PAP TEST, THINPREP, [id number] 00:00:00 Test Item Value Reference Range Interpretation Comments SOURCE: (test code = Cervical/Endocervical 8001) SLIDES: (test code = 1 8011) LMP: (test code = 12/21/2017 8021) SPECIMEN ADEQUACY: (NOTE) (test code = 30300) INTERPRETATION: (test NO EPITHELIAL code = 19254) ABNORMALITY SEE BELOW OTHER COMMENTS: (test (NOTE) code = 8081) COAL SHOOTER: Catherine (test code = 8101) AdonisCT(ASCP)IAC LOCATION: (test code (NOTE) = 44301) CPT: (test code = (NOTE) 8140) HPV HIGH RISK WITH GENOTYPE, [id number] 00:00:00 Test Item Value Reference Range Interpretation Comments HPV HIGH RISK INTERP (test code = NEGATIVE 55957) HPV 16 (test code = 45220) NEGATIVE HPV 18 (test code = 00326) NEGATIVE HPV, HR, OTHER GENOTYPES (test code NEGATIVE = 30037) PAP TEST, THINPREP, [id number] 00:00:00 Test Item Value Reference Range Interpretation Comments SOURCE: (test code = Cervical/Endocervical 8001) SLIDES: (test code = 1 8011) LMP: (test code = 12/21/2017 8021) SPECIMEN ADEQUACY: (NOTE) (test code = 54019) INTERPRETATION: (test NO EPITHELIAL code = 84759) ABNORMALITY SEE BELOW OTHER COMMENTS: (test (NOTE) code = 8081) COAL SHOOTER: Catherine (test code = 8101) Adonis,CT(ASCP)IAC LOCATION: (test code (NOTE) = 81836) CPT: (test code = (NOTE) 8140) PAP TEST, THINPREP, [id number] 00:00:00 Test Item Value Reference Range Interpretation Comments SOURCE: (test code = Cervical/Endocervical 8001) SLIDES: (test code = 1 8011) LMP: (test code = 12/21/2017 8021) SPECIMEN ADEQUACY: (NOTE) (test code = 78057) INTERPRETATION: (test NO EPITHELIAL code = 39261) ABNORMALITY SEE BELOW OTHER COMMENTS: (test (NOTE) code = 8081) COAL SHOOTER: Catherine (test code = 8101) POLO Lamb(ASCP)IAC LOCATION: (test code (NOTE) = 39225) CPT: (test code = (NOTE) 8140) HPV HIGH RISK WITH GENOTYPE, [id number] 00:00:00 Test Item Value Reference Range Interpretation Comments HPV HIGH RISK INTERP (test code = NEGATIVE 23034) HPV 16 (test code = 36174) NEGATIVE HPV 18 (test code = 83512) NEGATIVE HPV, HR, OTHER GENOTYPES (test code NEGATIVE = 90612) HPV HIGH RISK WITH GENOTYPE, [id number] 00:00:00 Test Item Value Reference Range Interpretation Comments HPV HIGH RISK INTERP (test code = NEGATIVE 68592) HPV 16 (test code = 20390) NEGATIVE HPV 18 (test code = 40149) NEGATIVE HPV, HR, OTHER GENOTYPES (test code NEGATIVE = 21801) HPV HIGH RISK WITH GENOTYPE, [id number] 00:00:00 Test Item Value Reference Range Interpretation Comments HPV HIGH RISK INTERP (test code = NEGATIVE 13408) HPV 16 (test code = 88175) NEGATIVE HPV 18 (test code = 97170) NEGATIVE HPV, HR, OTHER GENOTYPES (test code NEGATIVE = 71983) [id number] 00:00:00 Test Item Value Reference Range Interpretation Comments TSH (test code = 2821) 1.94 UIU/ML [id number] 00:00:00 Test Item Value Reference Range Interpretation Comments TSH (test code = 2821) 1.94 UIU/ML COMPREHENSIVE METABOLIC [id number] 00:00:00 Test Item Value Reference Range Interpretation Comments GLUCOSE (test code = 2217) 89 MG/DL BUN (test code = 2208) 11 MG/DL CREATININE (test code = 2214) 0.60 MG/DL eGFR AMER. (test code 133 ML/MIN/1.73 = 27840) eGFR NON- AMER. (test 115 ML/MIN/1.73 code = 40060) CALC BUN/CREAT (test code = 18 RATIO 2235) SODIUM (test code = 2231) 142 MEQ/L POTASSIUM (test code = 2228) 4.3 MEQ/L CHLORIDE (test code = 2215) 106 MEQ/L CARBON DIOXIDE (test code = 22 MEQ/L 2205) CALCIUM (test code = 2209) 9.1 MG/DL PROTEIN, TOTAL (test code = 7.6 G/DL 2228) ALBUMIN (test code = 2201) 4.3 G/DL CALC GLOBULIN (test code = 3.3 G/DL 2240) CALC A/G RATIO (test code = 1.3 RATIO 2234) BILIRUBIN, TOTAL (test code = 0.4 MG/DL 2206) ALKALINE PHOSPHATASE (test 70 U/L code = 2204) AST (test code = 2218) 25 U/L ALT (test code = 2219) 46 U/L COMPREHENSIVE METABOLIC [id number] 00:00:00 Test Item Value Reference Range Interpretation Comments GLUCOSE (test code = 2217) 89 MG/DL BUN (test code = 2208) 11 MG/DL CREATININE (test code = 2214) 0.60 MG/DL eGFR AMER. (test code 133 ML/MIN/1.73 = 46532) eGFR NON- AMER. (test 115 ML/MIN/1.73 code = 79557) CALC BUN/CREAT (test code = 18 RATIO 2235) SODIUM (test code = 2231) 142 MEQ/L POTASSIUM (test code = 2228) 4.3 MEQ/L CHLORIDE (test code = 2215) 106 MEQ/L CARBON DIOXIDE (test code = 22 MEQ/L 2206) CALCIUM (test code = 2209) 9.1 MG/DL PROTEIN, TOTAL (test code = 7.6 G/DL 2228) ALBUMIN (test code = 2201) 4.3 G/DL CALC GLOBULIN (test code = 3.3 G/DL 2240) CALC A/G RATIO (test code = 1.3 RATIO 2234) BILIRUBIN, TOTAL (test code = 0.4 MG/DL 2206) ALKALINE PHOSPHATASE (test 70 U/L code = 2204) AST (test code = 2218) 25 U/L ALT (test code = 2219) 46 U/L LIPID [id number] 00:00:00 Test Item Value Reference Range Interpretation Comments CHOLESTEROL (test code = 2210) 157 MG/DL TRIGLYCERIDES (test code = 2232) 101 MG/DL HDL CHOLESTEROL (test code = 2220) 48 MG/DL CALC LDL CHOL (test code = 2237) 89 MG/DL RISK RATIO LDL/HDL (test code = 1.85 RATIO 2238) LIPID [id number] 00:00:00 Test Item Value Reference Range Interpretation Comments CHOLESTEROL (test code = 2210) 157 MG/DL TRIGLYCERIDES (test code = 2232) 101 MG/DL HDL CHOLESTEROL (test code = 2220) 48 MG/DL CALC LDL CHOL (test code = 2237) 89 MG/DL RISK RATIO LDL/HDL (test code = 1.85 RATIO 2238) CBC W/AUTO [id number] 00:00:00 Test Item Value Reference Range Interpretation Comments WBC (test code = 1001) 9.3 K/UL RBC (test code = 1002) 4.62 M/UL HEMOGLOBIN (test code = 1003) 14.4 G/DL HEMATOCRIT (test code = 1004) 41.6 % MCV (test code = 1005) 90.0 fL MCH (test code = 1006) 31.2 PG MCHC (test code = 1007) 34.6 G/DL RDW (test code = 1038) 12.7 % NEUTROPHILS (test code = 1008) 58.6 % LYMPHOCYTES (test code = 1010) 33.4 % MONOCYTES (test code = 1011) 6.7 % EOSINOPHILS (test code = 1012) 0.8 % BASOPHILS (test code = 1013) 0.5 % PLATELET COUNT (test code = 1015) 366 K/UL CBC W/AUTO [id number] 00:00:00 Test Item Value Reference Range Interpretation Comments WBC (test code = 1001) 9.3 K/UL RBC (test code = 1002) 4.62 M/UL HEMOGLOBIN (test code = 1003) 14.4 G/DL HEMATOCRIT (test code = 1004) 41.6 % MCV (test code = 1005) 90.0 fL MCH (test code = 1006) 31.2 PG MCHC (test code = 1007) 34.6 G/DL RDW (test code = 1038) 12.7 % NEUTROPHILS (test code = 1008) 58.6 % LYMPHOCYTES (test code = 1010) 33.4 % MONOCYTES (test code = 1011) 6.7 % EOSINOPHILS (test code = 1012) 0.8 % BASOPHILS (test code = 1013) 0.5 % PLATELET COUNT (test code = 1015) 366 K/UL CBC W/AUTO [id number] 00:00:00 Test Item Value Reference Range Interpretation Comments WBC (test code = 1001) 9.3 K/UL RBC (test code = 1002) 4.62 M/UL HEMOGLOBIN (test code = 1003) 14.4 G/DL HEMATOCRIT (test code = 1004) 41.6 % MCV (test code = 1005) 90.0 fL MCH (test code = 1006) 31.2 PG MCHC (test code = 1007) 34.6 G/DL RDW (test code = 1038) 12.7 % NEUTROPHILS (test code = 1008) 58.6 % LYMPHOCYTES (test code = 1010) 33.4 % MONOCYTES (test code = 1011) 6.7 % EOSINOPHILS (test code = 1012) 0.8 % BASOPHILS (test code = 1013) 0.5 % PLATELET COUNT (test code = 1015) 366 K/UL HEMOGLOBIN [id number] 00:00:00 Test Item Value Reference Range Interpretation Comments HEMOGLOBIN A1c (test code = 00984) 6.2 % HEMOGLOBIN [id number] 00:00:00 Test Item Value Reference Range Interpretation Comments HEMOGLOBIN A1c (test code = 08462) 6.2 % HEMOGLOBIN [id number] 00:00:00 Test Item Value Reference Range Interpretation Comments HEMOGLOBIN A1c (test code = 85825) 6.2 % [id number] 00:00:00 Test Item Value Reference Range Interpretation Comments TSH (test code = 2821) 1.94 UIU/ML [id number] 00:00:00 Test Item Value Reference Range Interpretation Comments TSH (test code = 2821) 1.94 UIU/ML [id number] 00:00:00 Test Item Value Reference Range Interpretation Comments TSH (test code = 2821) 1.94 UIU/ML COMPREHENSIVE METABOLIC [id number] 00:00:00 Test Item Value Reference Range Interpretation Comments GLUCOSE (test code = 2217) 89 MG/DL BUN (test code = 2208) 11 MG/DL CREATININE (test code = 2214) 0.60 MG/DL eGFR AMER. (test code 133 ML/MIN/1.73 = 17971) eGFR NON- AMER. (test 115 ML/MIN/1.73 code = 88890) CALC BUN/CREAT (test code = 18 RATIO 2235) SODIUM (test code = 2231) 142 MEQ/L POTASSIUM (test code = 2228) 4.3 MEQ/L CHLORIDE (test code = 2215) 106 MEQ/L CARBON DIOXIDE (test code = 22 MEQ/L 2205) CALCIUM (test code = 2209) 9.1 MG/DL PROTEIN, TOTAL (test code = 7.6 G/DL 2228) ALBUMIN (test code = 2201) 4.3 G/DL CALC GLOBULIN (test code = 3.3 G/DL 2239) CALC A/G RATIO (test code = 1.3 RATIO 4) BILIRUBIN, TOTAL (test code = 0.4 MG/DL 2206) ALKALINE PHOSPHATASE (test 70 U/L code = 2204) AST (test code = 2218) 25 U/L ALT (test code = 2219) 46 U/L COMPREHENSIVE METABOLIC [id number] 00:00:00 Test Item Value Reference Range Interpretation Comments GLUCOSE (test code = 2217) 89 MG/DL BUN (test code = 2208) 11 MG/DL CREATININE (test code = 2214) 0.60 MG/DL eGFR AMER. (test code 133 ML/MIN/1.73 = 44315) eGFR NON- AMER. (test 115 ML/MIN/1.73 code = 03388) CALC BUN/CREAT (test code = 18 RATIO 2235) SODIUM (test code = 2231) 142 MEQ/L POTASSIUM (test code = 2228) 4.3 MEQ/L CHLORIDE (test code = 2215) 106 MEQ/L CARBON DIOXIDE (test code = 22 MEQ/L 220) CALCIUM (test code = 2209) 9.1 MG/DL PROTEIN, TOTAL (test code = 7.6 G/DL 2228) ALBUMIN (test code = 2201) 4.3 G/DL CALC GLOBULIN (test code = 3.3 G/DL 2240) CALC A/G RATIO (test code = 1.3 RATIO 2234) BILIRUBIN, TOTAL (test code = 0.4 MG/DL 2206) ALKALINE PHOSPHATASE (test 70 U/L code = 2204) AST (test code = 2218) 25 U/L ALT (test code = 2219) 46 U/L LIPID [id number] 00:00:00 Test Item Value Reference Range Interpretation Comments CHOLESTEROL (test code = 2210) 157 MG/DL TRIGLYCERIDES (test code = 2232) 101 MG/DL HDL CHOLESTEROL (test code = 2220) 48 MG/DL CALC LDL CHOL (test code = 2237) 89 MG/DL RISK RATIO LDL/HDL (test code = 1.85 RATIO 2238) LIPID [id number] 00:00:00 Test Item Value Reference Range Interpretation Comments CHOLESTEROL (test code = 2210) 157 MG/DL TRIGLYCERIDES (test code = 2232) 101 MG/DL HDL CHOLESTEROL (test code = 2220) 48 MG/DL CALC LDL CHOL (test code = 2237) 89 MG/DL RISK RATIO LDL/HDL (test code = 1.85 RATIO 2238) CBC W/AUTO [id number] 00:00:00 Test Item Value Reference Range Interpretation Comments WBC (test code = 1001) 9.3 K/UL RBC (test code = 1002) 4.62 M/UL HEMOGLOBIN (test code = 1003) 14.4 G/DL HEMATOCRIT (test code = 1004) 41.6 % MCV (test code = 1005) 90.0 fL MCH (test code = 1006) 31.2 PG MCHC (test code = 1007) 34.6 G/DL RDW (test code = 1038) 12.7 % NEUTROPHILS (test code = 1008) 58.6 % LYMPHOCYTES (test code = 1010) 33.4 % MONOCYTES (test code = 1011) 6.7 % EOSINOPHILS (test code = 1012) 0.8 % BASOPHILS (test code = 1013) 0.5 % PLATELET COUNT (test code = 1015) 366 K/UL CBC W/AUTO [id number] 00:00:00 Test Item Value Reference Range Interpretation Comments WBC (test code = 1001) 9.3 K/UL RBC (test code = 1002) 4.62 M/UL HEMOGLOBIN (test code = 1003) 14.4 G/DL HEMATOCRIT (test code = 1004) 41.6 % MCV (test code = 1005) 90.0 fL MCH (test code = 1006) 31.2 PG MCHC (test code = 1007) 34.6 G/DL RDW (test code = 1038) 12.7 % NEUTROPHILS (test code = 1008) 58.6 % LYMPHOCYTES (test code = 1010) 33.4 % MONOCYTES (test code = 1011) 6.7 % EOSINOPHILS (test code = 1012) 0.8 % BASOPHILS (test code = 1013) 0.5 % PLATELET COUNT (test code = 1015) 366 K/UL COMPREHENSIVE METABOLIC [id number] 00:00:00 Test Item Value Reference Range Interpretation Comments GLUCOSE (test code = 2217) 89 MG/DL BUN (test code = 2208) 11 MG/DL CREATININE (test code = 2214) 0.60 MG/DL eGFR AMER. (test code 133 ML/MIN/1.73 = 17549) eGFR NON- AMER. (test 115 ML/MIN/1.73 code = 53192) CALC BUN/CREAT (test code = 18 RATIO 2235) SODIUM (test code = 2231) 142 MEQ/L POTASSIUM (test code = 2228) 4.3 MEQ/L CHLORIDE (test code = 2215) 106 MEQ/L CARBON DIOXIDE (test code = 22 MEQ/L 2205) CALCIUM (test code = 2209) 9.1 MG/DL PROTEIN, TOTAL (test code = 7.6 G/DL 2228) ALBUMIN (test code = 2201) 4.3 G/DL CALC GLOBULIN (test code = 3.3 G/DL 2240) CALC A/G RATIO (test code = 1.3 RATIO 2234) BILIRUBIN, TOTAL (test code = 0.4 MG/DL 2206) ALKALINE PHOSPHATASE (test 70 U/L code = 2204) AST (test code = 2218) 25 U/L ALT (test code = 2219) 46 U/L CBC W/AUTO [id number] 00:00:00 Test Item Value Reference Range Interpretation Comments WBC (test code = 1001) 9.3 K/UL RBC (test code = 1002) 4.62 M/UL HEMOGLOBIN (test code = 1003) 14.4 G/DL HEMATOCRIT (test code = 1004) 41.6 % MCV (test code = 1005) 90.0 fL MCH (test code = 1006) 31.2 PG MCHC (test code = 1007) 34.6 G/DL RDW (test code = 1038) 12.7 % NEUTROPHILS (test code = 1008) 58.6 % LYMPHOCYTES (test code = 1010) 33.4 % MONOCYTES (test code = 1011) 6.7 % EOSINOPHILS (test code = 1012) 0.8 % BASOPHILS (test code = 1013) 0.5 % PLATELET COUNT (test code = 1015) 366 K/UL HEMOGLOBIN [id number] 00:00:00 Test Item Value Reference Range Interpretation Comments HEMOGLOBIN A1c (test code = 57700) 6.2 % HEMOGLOBIN [id number] 00:00:00 Test Item Value Reference Range Interpretation Comments HEMOGLOBIN A1c (test code = 25021) 6.2 % HEMOGLOBIN [id number] 00:00:00 Test Item Value Reference Range Interpretation Comments HEMOGLOBIN A1c (test code = 93890) 6.2 % [id number] 00:00:00 Test Item Value Reference Range Interpretation Comments TSH (test code = 2821) 1.94 UIU/ML [id number] 00:00:00 Test Item Value Reference Range Interpretation Comments TSH (test code = 2821) 1.94 UIU/ML [id number] 00:00:00 Test Item Value Reference Range Interpretation Comments TSH (test code = 2821) 1.94 UIU/ML COMPREHENSIVE METABOLIC [id number] 00:00:00 Test Item Value Reference Range Interpretation Comments GLUCOSE (test code = 2217) 89 MG/DL BUN (test code = 2208) 11 MG/DL CREATININE (test code = 2214) 0.60 MG/DL eGFR AMER. (test code 133 ML/MIN/1.73 = 90070) eGFR NON- AMER. (test 115 ML/MIN/1.73 code = 28616) CALC BUN/CREAT (test code = 18 RATIO 2235) SODIUM (test code = 2231) 142 MEQ/L POTASSIUM (test code = 2228) 4.3 MEQ/L CHLORIDE (test code = 2215) 106 MEQ/L CARBON DIOXIDE (test code = 22 MEQ/L 220) CALCIUM (test code = 2209) 9.1 MG/DL PROTEIN, TOTAL (test code = 7.6 G/DL 222) ALBUMIN (test code = 2201) 4.3 G/DL CALC GLOBULIN (test code = 3.3 G/DL 2240) CALC A/G RATIO (test code = 1.3 RATIO 2234) BILIRUBIN, TOTAL (test code = 0.4 MG/DL 2206) ALKALINE PHOSPHATASE (test 70 U/L code = 2204) AST (test code = 2218) 25 U/L ALT (test code = 2219) 46 U/L COMPREHENSIVE METABOLIC [id number] 00:00:00 Test Item Value Reference Range Interpretation Comments GLUCOSE (test code = 2217) 89 MG/DL BUN (test code = 2208) 11 MG/DL CREATININE (test code = 2214) 0.60 MG/DL eGFR AMER. (test code 133 ML/MIN/1.73 = 38138) eGFR NON- AMER. (test 115 ML/MIN/1.73 code = 74846) CALC BUN/CREAT (test code = 18 RATIO 2235) SODIUM (test code = 2231) 142 MEQ/L POTASSIUM (test code = 2228) 4.3 MEQ/L CHLORIDE (test code = 2215) 106 MEQ/L CARBON DIOXIDE (test code = 22 MEQ/L 2205) CALCIUM (test code = 2209) 9.1 MG/DL PROTEIN, TOTAL (test code = 7.6 G/DL 2228) ALBUMIN (test code = 2201) 4.3 G/DL CALC GLOBULIN (test code = 3.3 G/DL 2240) CALC A/G RATIO (test code = 1.3 RATIO 2234) BILIRUBIN, TOTAL (test code = 0.4 MG/DL 2206) ALKALINE PHOSPHATASE (test 70 U/L code = 2204) AST (test code = 2218) 25 U/L ALT (test code = 2219) 46 U/L COMPREHENSIVE METABOLIC [id number] 00:00:00 Test Item Value Reference Range Interpretation Comments GLUCOSE (test code = 2217) 89 MG/DL BUN (test code = 2208) 11 MG/DL CREATININE (test code = 2214) 0.60 MG/DL eGFR AMER. (test code 133 ML/MIN/1.73 = 48303) eGFR NON- AMER. (test 115 ML/MIN/1.73 code = 53279) CALC BUN/CREAT (test code = 18 RATIO 2235) SODIUM (test code = 2231) 142 MEQ/L POTASSIUM (test code = 2228) 4.3 MEQ/L CHLORIDE (test code = 2215) 106 MEQ/L CARBON DIOXIDE (test code = 22 MEQ/L 2205) CALCIUM (test code = 2209) 9.1 MG/DL PROTEIN, TOTAL (test code = 7.6 G/DL 2228) ALBUMIN (test code = 2201) 4.3 G/DL CALC GLOBULIN (test code = 3.3 G/DL 2239) CALC A/G RATIO (test code = 1.3 RATIO 2233) BILIRUBIN, TOTAL (test code = 0.4 MG/DL 2206) ALKALINE PHOSPHATASE (test 70 U/L code = 2204) AST (test code = 2218) 25 U/L ALT (test code = 2219) 46 U/L LIPID [id number] 00:00:00 Test Item Value Reference Range Interpretation Comments CHOLESTEROL (test code = 2210) 157 MG/DL TRIGLYCERIDES (test code = 2232) 101 MG/DL HDL CHOLESTEROL (test code = 2220) 48 MG/DL CALC LDL CHOL (test code = 2237) 89 MG/DL RISK RATIO LDL/HDL (test code = 1.85 RATIO 2238) LIPID [id number] 00:00:00 Test Item Value Reference Range Interpretation Comments CHOLESTEROL (test code = 2210) 157 MG/DL TRIGLYCERIDES (test code = 2232) 101 MG/DL HDL CHOLESTEROL (test code = 2220) 48 MG/DL CALC LDL CHOL (test code = 2237) 89 MG/DL RISK RATIO LDL/HDL (test code = 1.85 RATIO 2238) LIPID [id number] 00:00:00 Test Item Value Reference Range Interpretation Comments CHOLESTEROL (test code = 2210) 157 MG/DL TRIGLYCERIDES (test code = 2232) 101 MG/DL HDL CHOLESTEROL (test code = 2220) 48 MG/DL CALC LDL CHOL (test code = 2237) 89 MG/DL RISK RATIO LDL/HDL (test code = 1.85 RATIO 2238) CBC W/AUTO [id number] 00:00:00 Test Item Value Reference Range Interpretation Comments WBC (test code = 1001) 9.3 K/UL RBC (test code = 1002) 4.62 M/UL HEMOGLOBIN (test code = 1003) 14.4 G/DL HEMATOCRIT (test code = 1004) 41.6 % MCV (test code = 1005) 90.0 fL MCH (test code = 1006) 31.2 PG MCHC (test code = 1007) 34.6 G/DL RDW (test code = 1038) 12.7 % NEUTROPHILS (test code = 1008) 58.6 % LYMPHOCYTES (test code = 1010) 33.4 % MONOCYTES (test code = 1011) 6.7 % EOSINOPHILS (test code = 1012) 0.8 % BASOPHILS (test code = 1013) 0.5 % PLATELET COUNT (test code = 1015) 366 K/UL CBC W/AUTO [id number] 00:00:00 Test Item Value Reference Range Interpretation Comments WBC (test code = 1001) 9.3 K/UL RBC (test code = 1002) 4.62 M/UL HEMOGLOBIN (test code = 1003) 14.4 G/DL HEMATOCRIT (test code = 1004) 41.6 % MCV (test code = 1005) 90.0 fL MCH (test code = 1006) 31.2 PG MCHC (test code = 1007) 34.6 G/DL RDW (test code = 1038) 12.7 % NEUTROPHILS (test code = 1008) 58.6 % LYMPHOCYTES (test code = 1010) 33.4 % MONOCYTES (test code = 1011) 6.7 % EOSINOPHILS (test code = 1012) 0.8 % BASOPHILS (test code = 1013) 0.5 % PLATELET COUNT (test code = 1015) 366 K/UL CBC W/AUTO [id number] 00:00:00 Test Item Value Reference Range Interpretation Comments WBC (test code = 1001) 9.3 K/UL RBC (test code = 1002) 4.62 M/UL HEMOGLOBIN (test code = 1003) 14.4 G/DL HEMATOCRIT (test code = 1004) 41.6 % MCV (test code = 1005) 90.0 fL MCH (test code = 1006) 31.2 PG MCHC (test code = 1007) 34.6 G/DL RDW (test code = 1038) 12.7 % NEUTROPHILS (test code = 1008) 58.6 % LYMPHOCYTES (test code = 1010) 33.4 % MONOCYTES (test code = 1011) 6.7 % EOSINOPHILS (test code = 1012) 0.8 % BASOPHILS (test code = 1013) 0.5 % PLATELET COUNT (test code = 1015) 366 K/UL HEMOGLOBIN [id number] 00:00:00 Test Item Value Reference Range Interpretation Comments HEMOGLOBIN A1c (test code = 20194) 6.2 % HEMOGLOBIN [id number] 00:00:00 Test Item Value Reference Range Interpretation Comments HEMOGLOBIN A1c (test code = 86828) 6.2 % HEMOGLOBIN [id number] 00:00:00 Test Item Value Reference Range Interpretation Comments HEMOGLOBIN A1c (test code = 26267) 6.2 % [id number] 00:00:00 Test Item Value Reference Range Interpretation Comments TSH (test code = 2821) 1.94 UIU/ML [id number] 00:00:00 Test Item Value Reference Range Interpretation Comments TSH (test code = 2821) 1.94 UIU/ML [id number] 00:00:00 Test Item Value Reference Range Interpretation Comments TSH (test code = 2821) 1.94 UIU/ML LIPID [id number] 00:00:00 Test Item Value Reference Range Interpretation Comments CHOLESTEROL (test code = 2210) 157 MG/DL TRIGLYCERIDES (test code = 2232) 101 MG/DL HDL CHOLESTEROL (test code = 2220) 48 MG/DL CALC LDL CHOL (test code = 2237) 89 MG/DL RISK RATIO LDL/HDL (test code = 1.85 RATIO 2238) CBC W/AUTO [id number] 00:00:00 Test Item Value Reference Range Interpretation Comments WBC (test code = 1001) 9.3 K/UL RBC (test code = 1002) 4.62 M/UL HEMOGLOBIN (test code = 1003) 14.4 G/DL HEMATOCRIT (test code = 1004) 41.6 % MCV (test code = 1005) 90.0 fL MCH (test code = 1006) 31.2 PG MCHC (test code = 1007) 34.6 G/DL RDW (test code = 1038) 12.7 % NEUTROPHILS (test code = 1008) 58.6 % LYMPHOCYTES (test code = 1010) 33.4 % MONOCYTES (test code = 1011) 6.7 % EOSINOPHILS (test code = 1012) 0.8 % BASOPHILS (test code = 1013) 0.5 % PLATELET COUNT (test code = 1015) 366 K/UL CBC W/AUTO [id number] 00:00:00 Test Item Value Reference Range Interpretation Comments WBC (test code = 1001) 9.3 K/UL RBC (test code = 1002) 4.62 M/UL HEMOGLOBIN (test code = 1003) 14.4 G/DL HEMATOCRIT (test code = 1004) 41.6 % MCV (test code = 1005) 90.0 fL MCH (test code = 1006) 31.2 PG MCHC (test code = 1007) 34.6 G/DL RDW (test code = 1038) 12.7 % NEUTROPHILS (test code = 1008) 58.6 % LYMPHOCYTES (test code = 1010) 33.4 % MONOCYTES (test code = 1011) 6.7 % EOSINOPHILS (test code = 1012) 0.8 % BASOPHILS (test code = 1013) 0.5 % PLATELET COUNT (test code = 1015) 366 K/UL CBC W/AUTO [id number] 00:00:00 Test Item Value Reference Range Interpretation Comments WBC (test code = 1001) 9.3 K/UL RBC (test code = 1002) 4.62 M/UL HEMOGLOBIN (test code = 1003) 14.4 G/DL HEMATOCRIT (test code = 1004) 41.6 % MCV (test code = 1005) 90.0 fL MCH (test code = 1006) 31.2 PG MCHC (test code = 1007) 34.6 G/DL RDW (test code = 1038) 12.7 % NEUTROPHILS (test code = 1008) 58.6 % LYMPHOCYTES (test code = 1010) 33.4 % MONOCYTES (test code = 1011) 6.7 % EOSINOPHILS (test code = 1012) 0.8 % BASOPHILS (test code = 1013) 0.5 % PLATELET COUNT (test code = 1015) 366 K/UL HEMOGLOBIN [id number] 00:00:00 Test Item Value Reference Range Interpretation Comments HEMOGLOBIN A1c (test code = 19695) 6.2 % HEMOGLOBIN [id number] 00:00:00 Test Item Value Reference Range Interpretation Comments HEMOGLOBIN A1c (test code = 50829) 6.2 % HEMOGLOBIN [id number] 00:00:00 Test Item Value Reference Range Interpretation Comments HEMOGLOBIN A1c (test code = 66645) 6.2 % [id number] 00:00:00 Test Item Value Reference Range Interpretation Comments TSH (test code = 2821) 1.94 UIU/ML CULTURE, [id number] 00:00:00 Test Item Value Reference Range Interpretation Comments CULTURE, ROUTINE (test SPECIMEN NUMBER: code = 79930) [id number] CULTURE, [id number] 00:00:00 Test Item Value Reference Range Interpretation Comments CULTURE, ROUTINE (test SPECIMEN NUMBER: code = 13181) [id number] CULTURE, [id number] 00:00:00 Test Item Value Reference Range Interpretation Comments CULTURE, ROUTINE (test SPECIMEN NUMBER: code = 63177) [id number] CULTURE, [id number] 00:00:00 Test Item Value Reference Range Interpretation Comments CULTURE, ROUTINE (test SPECIMEN NUMBER: code = 56312) [id number] CULTURE, [id number] 00:00:00 Test Item Value Reference Range Interpretation Comments CULTURE, ROUTINE (test SPECIMEN NUMBER: code = 07538) [id number] CULTURE, [id number] 00:00:00 Test Item Value Reference Range Interpretation Comments CULTURE, ROUTINE (test SPECIMEN NUMBER: code = 61474) [id number] CULTURE, [id number] 00:00:00 Test Item Value Reference Range Interpretation Comments CULTURE, ROUTINE (test SPECIMEN NUMBER: code = 03309) [id number] CULTURE, [id number] 00:00:00 Test Item Value Reference Range Interpretation Comments CULTURE, ROUTINE (test SPECIMEN NUMBER: code = 97464) [id number] CULTURE, [id number] 00:00:00 Test Item Value Reference Range Interpretation Comments CULTURE, ROUTINE (test SPECIMEN NUMBER: code = 37220) [id number] CULTURE, [id number] 00:00:00 Test Item Value Reference Range Interpretation Comments CULTURE, ROUTINE (test SPECIMEN NUMBER: code = 87462) [id number] CULTURE, [id number] 00:00:00 Test Item Value Reference Range Interpretation Comments CULTURE, ROUTINE (test SPECIMEN NUMBER: code = 06480) [id number] CULTURE, [id number] 00:00:00 Test Item Value Reference Range Interpretation Comments CULTURE, ROUTINE (test SPECIMEN NUMBER: code = 32470) [id number]"
--- NOTE | 2022-10-11 14:50 | RAD REPORT ---
EXAM DESCRIPTION: [place] Pa And Lat (2 Views)10/11/2022 2:31 pm CLINICAL HISTORY: Congestion COMPARISON: Chest Single View dated 01/27/2022; Chest Single View dated 09/07/2019 TECHNIQUE: PA and lateral views of the chest. FINDINGS: The lungs are clear. No pneumothorax or effusion. The cardiomediastinal contours are unrem arkable. IMPRESSION: No acute cardiopulmonary process.
[2022-10-11] MEDS ORDERED: MAGNES/ALUMIN/SIMET 30ML UCUP ONE (15:28)
[2022-10-11] MEDS ORDERED: LIDOCAINE VISCOUS 2% SOLN 15 ML UDC ONE (15:28)
[2022-10-11] MEDS ORDERED: AMOX/K CLAV 875 MG TAB ONE (15:30)
[2022-10-11 15:33] LABS: SARS-COV-2 RT PCR POSITIVE (NEGATIVE)
--- NOTE | 2022-10-11 15:35 | EDPHYS ---
Physician Documentation [facility] Name: Massiel Sharma Age: 47 yrs Sex: Female : 1975 Arrival Date: 10/11/2022 Time: 14:05 Bed Treatment Private MD: ED Physician Javier Zheng HPI: 10/11 14:49 This 47 yrs old Female presents to ER via Ambulatory with complaints of Flu kb Symptoms. 14:49 The patient or guardian reports cough, that is intermittent, described as mild. Onset: kb The symptoms/episode began/occurred 4 day(s) ago. Severity of symptoms: At their worst the symptoms were moderate, in the emergency department the symptoms are unchanged. Modifying factors: The symptoms are alleviated by nothing, the symptoms are aggravated by nothing. Associated signs and symptoms: Pertinent positives: rhinorrhea, sore throat. The patient has not experienced similar symptoms in the past. The patient has not recently seen a physician. [employer]IEF: 15:50 LMP N/A - Post-menopause eh3 Historical: - Allergies: 14:09 Ketorolac; hb 14:09 Toradol; hb - PMHx: 14:09 Hepatitis; hb - PSHx: 14:09 section; hb - Immunization history:: Adult Immunizations unknown. - Social history:: Smoking status: unknown. ROS: 14:49 Abdomen/GI: Negative for abdominal pain, nausea, vomiting, diarrhea, and constipation. kb 14:49 Constitutional: Positive for chills. 14:49 ENT: Positive for rhinorrhea, sinus congestion, sore throat. 14:49 Respiratory: Positive for cough, pleurisy, of the left scapular area, right scapular area, left subscapular area and right subscapular area. 14:49 All other systems are negative. Exam: 14:49 Constitutional: This is a well developed, well nourished patient who is awake, alert, kb and in no acute distress. Head/Face: Normocephalic, atraumatic. ENT: Moist Mucous membranes Cardiovascular: Regular rate and rhythm with a normal S1 and S2. No gallops, murmurs, or rubs. No pulse deficits. Respiratory: Respirations even and unlabored. No increased work of breathing. Talking in full sentences Abdomen/GI: Soft, non-tender. No distention Skin: Warm, dry with normal turgor. Normal color. MS/ Extremity: Pulses equal, no cyanosis. Neurovascular intact. Full, normal range of motion. Neuro: Awake and alert, GCS 15, oriented to person, place, time, and situation. Moves all extremities. Normal gait. Vital Signs: 14:07 BP 137 / 92; Pulse 108; Resp 18; Temp 98.7; Pulse Ox 100% on R/A; Weight 72.57 kg; hb Height 5 ft. (152.40 cm); Pain 9/10; 14:30 BP 114 / 81; Pulse 85; Resp 18; Pulse Ox 98% on R/A; eh3 15:30 BP 122 / 88; Pulse 88; Resp 18; Pulse Ox 98% on R/A; eh3 14:07 Body Mass Index 31.25 (72.57 kg, 152.40 cm) hb MDM: 14:07 Patient medically screened. kb 14:47 Data reviewed: vital signs, nurses notes. kb 14:49 Differential Diagnosis: Bronchitis Influenza Upper Respiratory Infection Sinusitis kb Allergic Rhinitis. ED course: Patient is a 47-year-old female who presents for cough, congestion, sore throat, chills and lung pain with cough that started 4 days ago and got worse this morning. Normal physical exam. Respirations even and unlabored, lungs clear throughout. COVID, flu, strep test and chest x-ray ordered.. 15:34 Counseling: I had a detailed discussion with the patient and/or guardian regarding: the kb historical points, exam findings, and any diagnostic results supporting the discharge/admit diagnosis, lab results, the need for outpatient follow up, a family practitioner, to return to the emergency department if symptoms worsen or persist or if there are any questions or concerns that arise at home. 10/11 14:10 Order name: COVID-19/FLU A+B; Complete Time: 15:33 kb 10/11 14:10 Order name: Strep 10/11 14:10 Order name: Chest Pa And Lat (2 Views) XRAY; Complete Time: 14:56 kb Administered Medications: 15:29 Drug: Augmentin (Amoxicillin-Clavulanate) 875 mg Route: PO; 3 15:50 Follow up: Response: No adverse reaction 3 15:29 Drug: GI Cocktail without - (Maalox Suspension 30 ml, Lidocaine Liquid 2 % 15 eh3 ml) Route: PO; 15:50 Follow up: Response: Pain is decreased eh3 Disposition Summary: 10/11/22 15:35 Discharge Ordered Location: Home kb Condition: Stable kb Diagnosis - SARS-associated coronavirus as the cause of diseases classified elsewhere kb - Streptococcal pharyngitis kb Followup: kb - With: Private Physician - When: 2 - 3 days - Reason: Recheck today's complaints, Continuance of care, Re-evaluation by your physician Followup: kb - With: Emergency Department - When: As needed - Reason: Worsening of condition Discharge Instructions: - Discharge Summary Sheet kb - Strep Throat, Adult, [id number] kb - COVID-19 kb Forms: - Medication Reconciliation Form kb - Thank You Letter kb - Antibiotic Education kb - Prescription Opioid Use kb - School release form aa5 Prescriptions: - Augmentin 875-125 mg Oral Tablet - take 1 tablet by ORAL route every 12 hours for 10 days; 20 tablet; Refills: 0, kb Product Selection Permitted Addendum: 10/13/2022 07:14 Co-signature as Attending Physician, Javier Zheng MD I reviewed the patient's care r n provided by the Advanced Practice Provider and agree with the diagnosis and treatment plan. Signatures: Dispatcher [employer] Afshan Handley, DESIGN SUPERVISOR-C DESIGN SUPERVISOR-Ckb Javier Zheng MD MD rn Baxter, Heather, RN RN hb Hall, Erin, RN RN eh3 Corrections: (The following items were deleted from the chart) 10/11 14:50 14:49 Respiratory: Positive for cough, kb kb
--- NOTE | 2022-10-11 15:35 | ER ---
Nurse's Notes [facility] Name: Massiel Sharma Age: 47 yrs Sex: Female : 1975 Arrival Date: 10/11/2022 Time: 14:05 Bed Treatment Private MD: Diagnosis: SARS-associated coronavirus as the cause of diseases classified elsewhere;Streptococcal pharyngitis Presentation: 10/11 14:07 Chief complaint: Pain with breathing, cough, sinus pain and congestion, sore throat, hb and chills x 4 days. Coronavirus screen: At this time, the client does not indicate any symptoms associated with coronavirus-19. Ebola Screen: No symptoms or risks identified at this time. Initial Sepsis Screen: Does the patient meet any 2 criteria? No. Patient's initial sepsis screen is negative. Does the patient have a suspected source of infection? No. Patient's initial sepsis screen is negative. Risk Assessment: Do you want to hurt yourself or someone else? Patient reports no desire to harm self or others. Onset of symptoms was October 07, 2022. 14:07 Method Of Arrival: Ambulatory hb 14:07 Acuity: KRISSY 4 hb DIRECTOR TECHNICAL: 15:50 LMP N/A - Post-menopause eh3 Historical: - Allergies: 14:09 Ketorolac; hb 14:09 Toradol; hb - PMHx: 14:09 Hepatitis; hb - PSHx: 14:09 section; hb - Immunization history:: Adult Immunizations unknown. - Social history:: Smoking status: unknown. Screenin:30 [facility] ED Fall Risk Assessment (Adult) Score/Fall Risk Level 0 - 2 = Low Risk. Abuse eh3 screen: Denies threats or abuse. Denies injuries from another. Nutritional screening: No deficits noted. Tuberculosis screening: No symptoms or risk factors identified. Assessment: 14:30 General: Appears in no apparent distress. uncomfortable, Behavior is calm, cooperative, eh3 appropriate for age. Pain: Complains of pain in throat Pain does not radiate. Pain began 2-3 days ago. Neuro: Level of Consciousness is awake, alert, obeys commands, Oriented to person, place, time, situation. Cardiovascular: Capillary refill < 3 seconds Patient's skin is warm and dry. Respiratory: Reports cough that is non-productive, pain with cough Airway is patent Respiratory effort is even, unlabored, Respiratory pattern is regular, symmetrical. GI: No signs and/or symptoms were reported involving the gastrointestinal system. Abdomen is round non-distended. : No signs and/or symptoms were reported regarding the genitourinary system. EENT: Reports difficulty swallowing pain when swallowing. Derm: Skin is pink, warm \T\ dry. Musculoskeletal: Circulation, motion, and sensation intact. Range of motion: intact in all extremities. 15:30 Reassessment: Patient appears in no apparent distress at this time. Patient and/or eh3 family updated on plan of care and expected duration. Pain level reassessed. Patient is alert, oriented x 3, equal unlabored respirations, skin warm/dry/pink. Vital Signs: 14:07 BP 137 / 92; Pulse 108; Resp 18; Temp 98.7; Pulse Ox 100% on R/A; Weight 72.57 kg; hb Height 5 ft. (152.40 cm); Pain 9/10; 14:30 BP 114 / 81; Pulse 85; Resp 18; Pulse Ox 98% on R/A; eh3 15:30 BP 122 / 88; Pulse 88; Resp 18; Pulse Ox 98% on R/A; eh3 14:07 Body Mass Index 31.25 (72.57 kg, 152.40 cm) hb ED Course: 14:05 Patient arrived in ED. mr 14:06 Jemal Afshan, CATIA [facility]. kb 14:06 Javier Zheng MD is Attending Physician. kb 14:09 Triage completed. hb 14:30 Patient maintains SpO2 saturation greater than 95% on room air. eh3 14:30 Patient has correct armband on for positive identification. Bed in low position. Call eh3 light in reach. Side rails up X2. Pulse ox on. NIBP on. Door closed. Noise minimized. Lights dimmed. Warm blanket given. 14:31 Eenida Gomes, STEPHY is Primary Nurse. eh3 14:33 Chest Pa And Lat (2 Views) XRAY In Process Unspecified. EDMS 14:39 Strep Sent. eh3 14:39 COVID-19/FLU A+B Sent. eh3 15:49 No provider procedures requiring assistance completed. Patient did not have IV access eh3 during this emergency room visit. 15:50 Arm band placed on. eh3 Administered Medications: 15:29 Drug: Augmentin (Amoxicillin-Clavulanate) 875 mg Route: PO; 3 15:50 Follow up: Response: No adverse reaction 3 15:29 Drug: GI Cocktail without - (Maalox Suspension 30 ml, Lidocaine Liquid 2 % 15 eh3 ml) Route: PO; 15:50 Follow up: Response: Pain is decreased 3 Medication: 15:49 VIS not applicable for this client. 3 Outcome: 15:35 Discharge ordered by MD. maldonado 15:49 Discharged to home ambulatory. 3 15:49 Condition: stable 15:49 Discharge instructions given to patient, Instructed on discharge instructions, follow up and referral plans. medication usage, Demonstrated understanding of instructions, follow-up care, medications, Prescriptions given X 1. 15:50 Patient left the ED. 3 Signatures: Dispatcher [employer] EDMS Afshan Joaquin, CATIA PERSONAL INJURY ATTORNEY-Jana Cox mr Junie Harmon RN RN Eneida Gomes RN RN 3 Corrections: (The following items were deleted from the chart) 14:09 14:07 Chief complaint: Pain with breathing, cough, sinus pain and congestion, sore hb throat, and chills x 2 days hb 14: 14:07 Onset of symptoms was October 10, 2022 hb hb 14: 14:07 BP 137 / 92; Pulse 108bpm; Resp 18bpm; Pulse Ox 100% RA; Temp 98.7F; hb hb
[2022-10-11 15:55] VITALS: TEMP 98.7
[2022-10-11 15:57] VITALS: O2SAT 98
[2022-10-11 15:58] VITALS: BP 122/88
== END 2022-10-11 15:50 | disposition home or self-care (01) ==
LOC: ER 14:02
DX: U07.1 COVID-19 (principal); J02.0 Streptococcal pharyngitis; Z88.5 Allergy status to narcotic agent; Z88.8 Allergy status to other drugs, medicaments and biological substances
CPT/HCPCS: 87081; 0240U; 71046; 99284